=== PATIENT | male | born 1935 | race Caucasian/White ===

== ENCOUNTER 2019-04-10 22:48 | Inpatient (IN) ==
--- NOTE | 2019-04-10 23:38 | Emergency Department Note ---
Disposition Clinical Impression: Shortness of breath at rest Headache Qualifiers: Headache type: other headache syndrome Qualified Code(s): G44.89 - Other headache syndrome Disposition: Admitted As Inpatient Condition: Good Time of Disposition: 02:00 General Adult HPI - General Chief complaint: ED Shortness of Breath/Dyspnea Stated complaint: SoB/MUÑOZ/nausea Time Seen by Provider: 04/10/19 22:54 Source: patient, EMS Limitations: no limitations - History of Present Illness Pain Scale: 8 - Related Data Home Medications Medication Instructions Recorded Confirmed Apixaban [Eliquis] 5 mg PO BID 04/11/19 04/12/19 Atorvastatin [Lipitor] 40 mg PO QPM 04/11/19 04/12/19 Carvedilol 12.5 mg PO BID 04/11/19 04/12/19 Digoxin [Lanoxin] 0.125 mg PO DAILY 04/11/19 04/12/19 Furosemide [Lasix] 20 - 80 mg PO DAILY PRN 04/11/19 04/12/19 Glimepiride [Amaryl] 4 mg PO QAM 04/11/19 04/12/19 Metformin HCl [Fortamet] 500 mg PO BID 04/11/19 04/12/19 Omeprazole [PriLOSEC] 20 mg PO DAILY 04/11/19 04/12/19 Cholecalciferol (Vitamin D3) 1,000 units PO QAM 04/12/19 04/12/19 [Vitamin D3] Previous Rx's Medication Instructions Recorded Sodium Chloride [Sodium Chloride 1 gm PO DAILY #10 tablet 04/16/19 Tab] Tamsulosin [Flomax] 0.4 mg PO DAILY #30 capsule 04/16/19 Allergies Allergy/AdvReac Type Severity Reaction Status Date / Time No Known Allergies Allergy Verified 04/12/19 10:12 Past Medical History - Past Medical History Medical history: Reports: arthritis, atrial fibrillation, CHF, coronary artery disease, diabetes, GERD, hyperlipidemia, hypertension Surgical history: Reports: angioplasty/stent Psychiatric history: Reports: depression - Social History Smoking Status: Former smoker Smokeless Tobacco Status: No Alcohol use: Reports: none Drug use: Reports: none Physical Exam - General Limitations: no limitations General appearance: alert, in no apparent distress Course Vital Signs Temperature 98 F 04/10/19 22:55 Pulse Rate 66 04/10/19 22:55 Respiratory Rate 16 04/10/19 22:55 Blood Pressure 178/95 04/10/19 22:55 O2 Sat by Pulse Oximetry 98 04/10/19 22:55 Temperature 98.4 F 04/16/19 15:25 Pulse Rate 82 04/16/19 15:25 Respiratory Rate 12 04/16/19 15:25 Blood Pressure 151/79 04/16/19 15:25 O2 Sat by Pulse Oximetry 95 04/16/19 15:25 Oxygen Delivery Oxygen Delivery Room Air Medical Decision Making - Lab Data Result diagrams: 04/15/19 05:23 04/16/19 03:56 Lab Results 04/10/19 04/10/19 04/11/19 Range/Units 23:43 23:43 01:33 WBC 8.5 (4.3-11.1) K/mcL RBC 3.80 L (4.19-5.50) M/mcL Hgb 12.8 L (12.9-16.9) g/dL Hct 35.8 L (37.5-50.1) % MCV 94.2 D (83.0-100.0) fL MCH 33.7 H (28.0-33.3) pg MCHC 35.8 H (31.6-35.5) g/dL RDW 12.0 (11.5-14.5) % Plt Count 162 (140-400) K/mcL MPV 8.7 L (9.4-12.4) fL Immature Gran % 0.5 (0-4) % Seg Neutrophils % 73.3 % Lymphocytes % 13.9 % Monocytes % 11.5 % Eosinophils % 0.6 % Basophils % 0.2 % Neutrophils # 6.2 (1.6-8.9) K/mcL Lymphocytes # 1.2 (0.6-4.6) K/mcL Monocytes # 1.0 (0.0-1.3) K/mcL Eosinophils # 0.1 (0.0-0.6) K/mcL Basophils # 0.0 (0.0-0.2) K/mcL PT (9.4-12.1) Seconds INR Sodium 126 L (136-145) mEq/L Potassium 3.4 L (3.5-5.1) mEq/L Chloride 91 L (98-107) mEq/L Carbon Dioxide 25 (23-29) mEq/L BUN 9 (8-23) mg/dL Creatinine 0.56 L (0.70-1.30) mg/dL Est GFR ( Amer) > 60 (> 60) Est GFR (Non-Af Amer) > 60 (> 60) BUN/Creatinine Ratio 16 (6-26) Glucose 103 (70-105) mg/dL POC Glucose (70-99) mg/dL Calculated Osmolality 261 L (280-300) Calcium 9.3 (8.6-10.3) mg/dL Magnesium (1.6-2.6) mg/dL Total Bilirubin 1.6 H (0.3-1.0) mg/dL AST 17 (13-39) Units/L ALT 13 (7-52) Units/L Alkaline Phosphatase 97 (34-104) Units/L Troponin I < 0.03 (< 0.04) ng/mL Serum Total Protein 6.5 (6.4-8.9) g/dL Albumin 3.9 (3.5-5.7) g/dL Globulin 2.6 (2.4-3.5) g/dL Albumin/Globulin Ratio 1.5 (1.1-2.2) TSH (0.340-5.600) mcIU/mL Random Cortisol mcg/dl Urine Color Yellow (Yellow) Urine Clarity Clear (Clear) Urine pH 7.0 (5.0-8.0) pH Units Ur Specific [place] 1.020 (1.010-1.025) Urine Protein Negative (Neg-Trace) mg/dL Urine Glucose (UA) Normal (Normal) mg/dL Urine Ketones 15 H (Negative) mg/dL Urine Blood Negative (Negative) Urine Nitrite Negative (Negative) Urine Bilirubin Negative (Negative) Urine Urobilinogen Normal (Normal) mg/dL Ur Leukocyte Esterase Negative (Negative) Ur Culture Indicated? NO (NO) Urine Osmolality (300-1090) mOsm/kg Urine Sodium mEq/L Digoxin (0.8-2.0) ng/mL 04/11/19 04/11/19 04/11/19 Range/Units 04:30 04:30 07:33 WBC 8.2 (4.3-11.1) K/mcL RBC 3.64 L (4.19-5.50) M/mcL Hgb 12.5 L (12.9-16.9) g/dL Hct 35.0 L (37.5-50.1) % MCV 96.2 (83.0-100.0) fL MCH 34.3 H (28.0-33.3) pg MCHC 35.7 H (31.6-35.5) g/dL RDW 12.2 (11.5-14.5) % Plt Count 161 (140-400) K/mcL MPV 8.8 L (9.4-12.4) fL Immature Gran % 0.6 (0-4) % Seg Neutrophils % 75.1 % Lymphocytes % 12.1 % Monocytes % 11.6 % Eosinophils % 0.4 % Basophils % 0.2 % Neutrophils # 6.2 (1.6-8.9) K/mcL Lymphocytes # 1.0 (0.6-4.6) K/mcL Monocytes # 1.0 (0.0-1.3) K/mcL Eosinophils # 0.0 (0.0-0.6) K/mcL Basophils # 0.0 (0.0-0.2) K/mcL PT (9.4-12.1) Seconds INR Sodium (136-145) mEq/L Potassium (3.5-5.1) mEq/L Chloride (98-107) mEq/L Carbon Dioxide (23-29) mEq/L BUN (8-23) mg/dL Creatinine (0.70-1.30) mg/dL Est GFR ( Amer) (> 60) Est GFR (Non-Af Amer) (> 60) BUN/Creatinine Ratio (6-26) Glucose (70-105) mg/dL POC Glucose (70-99) mg/dL Calculated Osmolality (280-300) Calcium (8.6-10.3) mg/dL Magnesium (1.6-2.6) mg/dL Total Bilirubin (0.3-1.0) mg/dL AST (13-39) Units/L ALT (7-52) Units/L Alkaline Phosphatase (34-104) Units/L Troponin I (< 0.04) ng/mL Serum Total Protein (6.4-8.9) g/dL Albumin (3.5-5.7) g/dL Globulin (2.4-3.5) g/dL Albumin/Globulin Ratio (1.1-2.2) TSH (0.340-5.600) mcIU/mL Random Cortisol mcg/dl Urine Color (Yellow) Urine Clarity (Clear) Urine pH (5.0-8.0) pH Units Ur Specific [place] (1.010-1.025) Urine Protein (Neg-Trace) mg/dL Urine Glucose (UA) (Normal) mg/dL Urine Ketones (Negative) mg/dL Urine Blood (Negative) Urine Nitrite (Negative) Urine Bilirubin (Negative) Urine Urobilinogen (Normal) mg/dL Ur Leukocyte Esterase (Negative) Ur Culture Indicated? (NO) Urine Osmolality 484 (300-1090) mOsm/kg Urine Sodium 125.2 mEq/L Digoxin (0.8-2.0) ng/mL 04/11/19 04/11/19 04/11/19 Range/Units 07:33 09:57 12:51 WBC (4.3-11.1) K/mcL RBC (4.19-5.50) M/mcL Hgb (12.9-16.9) g/dL Hct (37.5-50.1) % MCV (83.0-100.0) fL MCH (28.0-33.3) pg MCHC (31.6-35.5) g/dL RDW (11.5-14.5) % Plt Count (140-400) K/mcL MPV (9.4-12.4) fL Immature Gran % (0-4) % Seg Neutrophils % % Lymphocytes % % Monocytes % % Eosinophils % % Basophils % % Neutrophils # (1.6-8.9) K/mcL Lymphocytes # (0.6-4.6) K/mcL Monocytes # (0.0-1.3) K/mcL Eosinophils # (0.0-0.6) K/mcL Basophils # (0.0-0.2) K/mcL PT (9.4-12.1) Seconds INR Sodium 124 L 125 L (136-145) mEq/L Potassium 3.6 (3.5-5.1) mEq/L Chloride 90 L (98-107) mEq/L Carbon Dioxide 27 (23-29) mEq/L BUN 9 (8-23) mg/dL Creatinine 0.56 L (0.70-1.30) mg/dL Est GFR ( Amer) > 60 (> 60) Est GFR (Non-Af Amer) > 60 (> 60) BUN/Creatinine Ratio 16 (6-26) Glucose 91 (70-105) mg/dL POC Glucose 100 H (70-99) mg/dL Calculated Osmolality 256 L (280-300) Calcium 9.2 (8.6-10.3) mg/dL Magnesium 1.7 (1.6-2.6) mg/dL Total Bilirubin (0.3-1.0) mg/dL AST (13-39) Units/L ALT (7-52) Units/L Alkaline Phosphatase (34-104) Units/L Troponin I (< 0.04) ng/mL Serum Total Protein (6.4-8.9) g/dL Albumin (3.5-5.7) g/dL Globulin (2.4-3.5) g/dL Albumin/Globulin Ratio (1.1-2.2) TSH 0.986 (0.340-5.600) mcIU/mL Random Cortisol 9.0 mcg/dl Urine Color (Yellow) Urine Clarity (Clear) Urine pH (5.0-8.0) pH Units Ur Specific [place] (1.010-1.025) Urine Protein (Neg-Trace) mg/dL Urine Glucose (UA) (Normal) mg/dL Urine Ketones (Negative) mg/dL Urine Blood (Negative) Urine Nitrite (Negative) Urine Bilirubin (Negative) Urine Urobilinogen (Normal) mg/dL Ur Leukocyte Esterase (Negative) Ur Culture Indicated? (NO) Urine Osmolality (300-1090) mOsm/kg Urine Sodium mEq/L Digoxin (0.8-2.0) ng/mL 04/11/19 04/11/19 04/12/19 Range/Units 15:56 21:10 03:02 WBC 8.1 (4.3-11.1) K/mcL RBC 3.62 L (4.19-5.50) M/mcL Hgb 12.1 L (12.9-16.9) g/dL Hct 34.5 L (37.5-50.1) % MCV 95.3 (83.0-100.0) fL MCH 33.4 H (28.0-33.3) pg MCHC 35.1 (31.6-35.5) g/dL RDW 12.3 (11.5-14.5) % Plt Count 166 (140-400) K/mcL MPV 8.7 L (9.4-12.4) fL Immature Gran % (0-4) % Seg Neutrophils % % Lymphocytes % % Monocytes % % Eosinophils % % Basophils % % Neutrophils # (1.6-8.9) K/mcL Lymphocytes # (0.6-4.6) K/mcL Monocytes # (0.0-1.3) K/mcL Eosinophils # (0.0-0.6) K/mcL Basophils # (0.0-0.2) K/mcL PT (9.4-12.1) Seconds INR Sodium (136-145) mEq/L Potassium (3.5-5.1) mEq/L Chloride (98-107) mEq/L Carbon Dioxide (23-29) mEq/L BUN (8-23) mg/dL Creatinine (0.70-1.30) mg/dL Est GFR ( Amer) (> 60) Est GFR (Non-Af Amer) (> 60) BUN/Creatinine Ratio (6-26) Glucose (70-105) mg/dL POC Glucose 117 H 116 H (70-99) mg/dL Calculated Osmolality (280-300) Calcium (8.6-10.3) mg/dL Magnesium (1.6-2.6) mg/dL Total Bilirubin (0.3-1.0) mg/dL AST (13-39) Units/L ALT (7-52) Units/L Alkaline Phosphatase (34-104) Units/L Troponin I (< 0.04) ng/mL Serum Total Protein (6.4-8.9) g/dL Albumin (3.5-5.7) g/dL Globulin (2.4-3.5) g/dL Albumin/Globulin Ratio (1.1-2.2) TSH (0.340-5.600) mcIU/mL Random Cortisol mcg/dl Urine Color (Yellow) Urine Clarity (Clear) Urine pH (5.0-8.0) pH Units Ur Specific [place] (1.010-1.025) Urine Protein (Neg-Trace) mg/dL Urine Glucose (UA) (Normal) mg/dL Urine Ketones (Negative) mg/dL Urine Blood (Negative) Urine Nitrite (Negative) Urine Bilirubin (Negative) Urine Urobilinogen (Normal) mg/dL Ur Leukocyte Esterase (Negative) Ur Culture Indicated? (NO) Urine Osmolality (300-1090) mOsm/kg Urine Sodium mEq/L Digoxin (0.8-2.0) ng/mL 04/12/19 04/12/19 04/12/19 Range/Units 03:02 03:02 07:09 WBC (4.3-11.1) K/mcL RBC (4.19-5.50) M/mcL Hgb (12.9-16.9) g/dL Hct (37.5-50.1) % MCV (83.0-100.0) fL MCH (28.0-33.3) pg MCHC (31.6-35.5) g/dL RDW (11.5-14.5) % Plt Count (140-400) K/mcL MPV (9.4-12.4) fL Immature Gran % (0-4) % Seg Neutrophils % % Lymphocytes % % Monocytes % % Eosinophils % % Basophils % % Neutrophils # (1.6-8.9) K/mcL Lymphocytes # (0.6-4.6) K/mcL Monocytes # (0.0-1.3) K/mcL Eosinophils # (0.0-0.6) K/mcL Basophils # (0.0-0.2) K/mcL PT (9.4-12.1) Seconds INR Sodium 125 L (136-145) mEq/L Potassium 4.2 (3.5-5.1) mEq/L Chloride 92 L (98-107) mEq/L Carbon Dioxide 27 (23-29) mEq/L BUN 8 (8-23) mg/dL Creatinine 0.68 L (0.70-1.30) mg/dL Est GFR ( Amer) > 60 (> 60) Est GFR (Non-Af Amer) > 60 (> 60) BUN/Creatinine Ratio 12 (6-26) Glucose 111 H (70-105) mg/dL POC Glucose 116 H (70-99) mg/dL Calculated Osmolality 259 L (280-300) Calcium 9.4 (8.6-10.3) mg/dL Magnesium 1.9 (1.6-2.6) mg/dL Total Bilirubin (0.3-1.0) mg/dL AST (13-39) Units/L ALT (7-52) Units/L Alkaline Phosphatase (34-104) Units/L Troponin I (< 0.04) ng/mL Serum Total Protein (6.4-8.9) g/dL Albumin (3.5-5.7) g/dL Globulin (2.4-3.5) g/dL Albumin/Globulin Ratio (1.1-2.2) TSH (0.340-5.600) mcIU/mL Random Cortisol mcg/dl Urine Color (Yellow) Urine Clarity (Clear) Urine pH (5.0-8.0) pH Units Ur Specific [place] (1.010-1.025) Urine Protein (Neg-Trace) mg/dL Urine Glucose (UA) (Normal) mg/dL Urine Ketones (Negative) mg/dL Urine Blood (Negative) Urine Nitrite (Negative) Urine Bilirubin (Negative) Urine Urobilinogen (Normal) mg/dL Ur Leukocyte Esterase (Negative) Ur Culture Indicated? (NO) Urine Osmolality (300-1090) mOsm/kg Urine Sodium mEq/L Digoxin 0.7 L (0.8-2.0) ng/mL 04/12/19 04/12/19 04/12/19 Range/Units 11:00 16:12 20:32 WBC (4.3-11.1) K/mcL RBC (4.19-5.50) M/mcL Hgb (12.9-16.9) g/dL Hct (37.5-50.1) % MCV (83.0-100.0) fL MCH (28.0-33.3) pg MCHC (31.6-35.5) g/dL RDW (11.5-14.5) % Plt Count (140-400) K/mcL MPV (9.4-12.4) fL Immature Gran % (0-4) % Seg Neutrophils % % Lymphocytes % % Monocytes % % Eosinophils % % Basophils % % Neutrophils # (1.6-8.9) K/mcL Lymphocytes # (0.6-4.6) K/mcL Monocytes # (0.0-1.3) K/mcL Eosinophils # (0.0-0.6) K/mcL Basophils # (0.0-0.2) K/mcL PT (9.4-12.1) Seconds INR Sodium (136-145) mEq/L Potassium (3.5-5.1) mEq/L Chloride (98-107) mEq/L Carbon Dioxide (23-29) mEq/L BUN (8-23) mg/dL Creatinine (0.70-1.30) mg/dL Est GFR ( Amer) (> 60) Est GFR (Non-Af Amer) (> 60) BUN/Creatinine Ratio (6-26) Glucose (70-105) mg/dL POC Glucose 131 H 127 H 137 H (70-99) mg/dL Calculated Osmolality (280-300) Calcium (8.6-10.3) mg/dL Magnesium (1.6-2.6) mg/dL Total Bilirubin (0.3-1.0) mg/dL AST (13-39) Units/L ALT (7-52) Units/L Alkaline Phosphatase (34-104) Units/L Troponin I (< 0.04) ng/mL Serum Total Protein (6.4-8.9) g/dL Albumin (3.5-5.7) g/dL Globulin (2.4-3.5) g/dL Albumin/Globulin Ratio (1.1-2.2) TSH (0.340-5.600) mcIU/mL Random Cortisol mcg/dl Urine Color (Yellow) Urine Clarity (Clear) Urine pH (5.0-8.0) pH Units Ur Specific [place] (1.010-1.025) Urine Protein (Neg-Trace) mg/dL Urine Glucose (UA) (Normal) mg/dL Urine Ketones (Negative) mg/dL Urine Blood (Negative) Urine Nitrite (Negative) Urine Bilirubin (Negative) Urine Urobilinogen (Normal) mg/dL Ur Leukocyte Esterase (Negative) Ur Culture Indicated? (NO) Urine Osmolality (300-1090) mOsm/kg Urine Sodium mEq/L Digoxin (0.8-2.0) ng/mL 04/13/19 04/13/19 04/13/19 Range/Units 04:55 04:55 04:55 WBC 8.6 (4.3-11.1) K/mcL RBC 3.55 L (4.19-5.50) M/mcL Hgb 12.1 L (12.9-16.9) g/dL Hct 35.9 L (37.5-50.1) % MCV 101.1 H (83.0-100.0) fL MCH 34.1 H (28.0-33.3) pg MCHC 33.7 (31.6-35.5) g/dL RDW 12.4 (11.5-14.5) % Plt Count 147 (140-400) K/mcL MPV 8.7 L (9.4-12.4) fL Immature Gran % (0-4) % Seg Neutrophils % % Lymphocytes % % Monocytes % % Eosinophils % % Basophils % % Neutrophils # (1.6-8.9) K/mcL Lymphocytes # (0.6-4.6) K/mcL Monocytes # (0.0-1.3) K/mcL Eosinophils # (0.0-0.6) K/mcL Basophils # (0.0-0.2) K/mcL PT 14.8 H (9.4-12.1) Seconds INR 1.3 Sodium 127 L (136-145) mEq/L Potassium 4.2 (3.5-5.1) mEq/L Chloride 92 L (98-107) mEq/L Carbon Dioxide 27 (23-29) mEq/L BUN 9 (8-23) mg/dL Creatinine 0.68 L (0.70-1.30) mg/dL Est GFR ( Amer) > 60 (> 60) Est GFR (Non-Af Amer) > 60 (> 60) BUN/Creatinine Ratio 13 (6-26) Glucose 126 H (70-105) mg/dL POC Glucose (70-99) mg/dL Calculated Osmolality 264 L (280-300) Calcium 8.9 (8.6-10.3) mg/dL Magnesium 1.9 (1.6-2.6) mg/dL Total Bilirubin (0.3-1.0) mg/dL AST (13-39) Units/L ALT (7-52) Units/L Alkaline Phosphatase (34-104) Units/L Troponin I (< 0.04) ng/mL Serum Total Protein (6.4-8.9) g/dL Albumin (3.5-5.7) g/dL Globulin (2.4-3.5) g/dL Albumin/Globulin Ratio (1.1-2.2) TSH (0.340-5.600) mcIU/mL Random Cortisol mcg/dl Urine Color (Yellow) Urine Clarity (Clear) Urine pH (5.0-8.0) pH Units Ur Specific [place] (1.010-1.025) Urine Protein (Neg-Trace) mg/dL Urine Glucose (UA) (Normal) mg/dL Urine Ketones (Negative) mg/dL Urine Blood (Negative) Urine Nitrite (Negative) Urine Bilirubin (Negative) Urine Urobilinogen (Normal) mg/dL Ur Leukocyte Esterase (Negative) Ur Culture Indicated? (NO) Urine Osmolality (300-1090) mOsm/kg Urine Sodium mEq/L Digoxin (0.8-2.0) ng/mL 04/13/19 04/13/19 Range/Units 07:14 11:41 WBC (4.3-11.1) K/mcL RBC (4.19-5.50) M/mcL Hgb (12.9-16.9) g/dL Hct (37.5-50.1) % MCV (83.0-100.0) fL MCH (28.0-33.3) pg MCHC (31.6-35.5) g/dL RDW (11.5-14.5) % Plt Count (140-400) K/mcL MPV (9.4-12.4) fL Immature Gran % (0-4) % Seg Neutrophils % % Lymphocytes % % Monocytes % % Eosinophils % % Basophils % % Neutrophils # (1.6-8.9) K/mcL Lymphocytes # (0.6-4.6) K/mcL Monocytes # (0.0-1.3) K/mcL Eosinophils # (0.0-0.6) K/mcL Basophils # (0.0-0.2) K/mcL PT (9.4-12.1) Seconds INR Sodium (136-145) mEq/L Potassium (3.5-5.1) mEq/L Chloride (98-107) mEq/L Carbon Dioxide (23-29) mEq/L BUN (8-23) mg/dL Creatinine (0.70-1.30) mg/dL Est GFR ( Amer) (> 60) Est GFR (Non-Af Amer) (> 60) BUN/Creatinine Ratio (6-26) Glucose (70-105) mg/dL POC Glucose 117 H 115 H (70-99) mg/dL Calculated Osmolality (280-300) Calcium (8.6-10.3) mg/dL Magnesium (1.6-2.6) mg/dL Total Bilirubin (0.3-1.0) mg/dL AST (13-39) Units/L ALT (7-52) Units/L Alkaline Phosphatase (34-104) Units/L Troponin I (< 0.04) ng/mL Serum Total Protein (6.4-8.9) g/dL Albumin (3.5-5.7) g/dL Globulin (2.4-3.5) g/dL Albumin/Globulin Ratio (1.1-2.2) TSH (0.340-5.600) mcIU/mL Random Cortisol mcg/dl Urine Color (Yellow) Urine Clarity (Clear) Urine pH (5.0-8.0) pH Units Ur Specific [place] (1.010-1.025) Urine Protein (Neg-Trace) mg/dL Urine Glucose (UA) (Normal) mg/dL Urine Ketones (Negative) mg/dL Urine Blood (Negative) Urine Nitrite (Negative) Urine Bilirubin (Negative) Urine Urobilinogen (Normal) mg/dL Ur Leukocyte Esterase (Negative) Ur Culture Indicated? (NO) Urine Osmolality (300-1090) mOsm/kg Urine Sodium mEq/L Digoxin (0.8-2.0) ng/mL Attestation Statement - Attestation Attestation: I examined this patient and my medical decision-making was reviewed with the Resident Physician. I agree with the documented findings, disposition and treatment plan as described except to the extent set forth below. I was present for the residency EKG interpretation. 3 days of multiple complaints, onset corresponded with when he started Cymbalta but have not gotten better since Cymbalta was discontinued. Gradual onset of headache that has been present for 3 days and is at its maximum intensity now. Some confusion that started when he started Cymbalta 3 days ago and is also not improved. He complained of some dysuria as well. Complains of shortness of breath without chest pain, diaphoresis. Has had some nausea. Has an extensive cardiac history. Will require cardiac evaluation. She is no reason to suspect subarachnoid hemorrhage given the gradual onset of his symptoms in 3 days until he reached maximum intensity, but given his headache that is different from his prior headaches and is associated with some mental status changes, CT is warranted. I cannot identify lateralizing deficits on my exam. Overall, his exam is unremarkable other than being a little bit slow with mentation, which the family says is off his baseline. Evaluation and management discussed in detail with Dr. Han. We will reassess.
[2019-04-10] MEDS ORDERED: Prochlorperazine 10 MG/2 ML VIAL IVP STA (23:40)
[2019-04-10 23:56] LABS: Basophils % 0.2 %; Eosinophils # 0.1 K/mcL (0.0-0.6); Eosinophils % 0.6 %; Hematocrit 35.8 % (37.5-50.1); Hemoglobin 12.8 g/dL (12.9-16.9); Immature Granulocytes % 0.5 % (0-4); Lymphocytes # 1.2 K/mcL (0.6-4.6); Lymphocytes % 13.9 %; Mean Corpuscular HGB Conc 35.8 g/dL (31.6-35.5); Mean Corpuscular Hemoglobin 33.7 pg (28.0-33.3); Mean Platelet Volume 8.7 fL (9.4-12.4); Monocytes % 11.5 %; Neutrophils # 6.2 K/mcL (1.6-8.9); Platelet Count 162 K/mcL (140-400); Segmented Neutrophils % 73.3 %; White Blood Count 8.5 K/mcL (4.3-11.1)
[2019-04-11 00:17] LABS: Alanine Aminotransferase 13 Units/L (7-52); Albumin 3.9 g/dL (3.5-5.7); Albumin/Globulin Ratio 1.5 (1.1-2.2); Alkaline Phosphatase 97 Units/L (34-104); Aspartate Amino Transferase 17 Units/L (13-39); BUN/Creatinine Ratio 16 (6-26); Bilirubin,Total 1.6 mg/dL (0.3-1.0); Blood Urea Nitrogen 9 mg/dL (8-23); Calcium 9.3 mg/dL (8.6-10.3); Carbon Dioxide 25 mEq/L (23-29); Chloride 91 mEq/L (98-107); Globulin 2.6 g/dL (2.4-3.5); Glucose 103 mg/dL (70-105); Osmolality,Calculated 261 (280-300); Potassium 3.4 mEq/L (3.5-5.1); Sodium 126 mEq/L (136-145); Total Protein 6.5 g/dL (6.4-8.9); Troponin I < 0.03 ng/mL (< 0.04); eGFR For African Americans > 60 (> 60); eGFR For Non-African Americans > 60 (> 60)
[2019-04-11 00:24] LABS: Mean Corpuscular Volume 94.2 fL (83.0-100.0)
--- NOTE | 2019-04-11 01:38 | Internal Med History&Physical ---
<Josh Palm - Last Filed: 04/11/19 04:01> Date of Encounter: 04/11/19 Time of Encounter: 03:18 Internal Medicine - H&P: HPI Chief complaint: SOB, MUÑOZ Admitted From: Emergency Dept Plans for Post Hospital Care: Home History of present illness: Mr. Gillespie is a 83 year old male with a PMhx of AFib on eliquis, HTN, HLD, CAD, DM who presents to ED with a complaint of MUÑOZ, nausea, SOB, weakness x 3 days. Patient states that he restart a new medication of Cymbalta 3 days ago when symptoms onset. Family who is at bedside, states that patient has had poor oral intake with both fluids and solids. Family states that this is due to both nausea and decreased appetite. They have noticed him complaining of diffuse weakness in all extremities with no focal complaints. He has never had anything like this before. He has not noticed any vomiting, fevers, chills, complaints of respiratory illness, cough, numbness outside at baseline, tingling, joint pains. He has no sick contacts or recent travel. He has had 1 loose bowel movement with what he described as coffee ground in appearance. He has also been complaining of some dysuria and hesitancy but has not noticed any frequency, changes and odors or color. Patient also admits to a frontal headache in this time which has been constant and worse with exertion. He has tried Tylenol at home and Compazine in the emergency room with minimal relief of symptoms. He is not having any chest pains at this time. In the ED, vitals were only significant for BP 178/95. Labs showed improved from baseline anemia, Na of 126, K of 3.4, Cl 91. Kidney function wnl. Osm was calculated at 261 and Tbili of 1.6. Troponin <0.03. UA showed ketones with no evidence of infection. EKG showed AFib with no ST changes or t-wave inversions. CXR showed left basilar atelectasis and pleural thickening vs effusion. Cardiomegaly and calcified aorta also noted. CT head obtained and showed no acute process. He was given compazine with mild improvement of symptoms. At time of my interview, patient states that he is feeling a little bit better in his shortness of breath and headache. He is continuing to feel weak and is tired at this time. Past medical history: As above Surgical history: CABG 3, nasal reconstruction Social history: Former heavy smoker, quit in 1996, former moderate alcohol use, also quit 1996. Denies drug use. Past Med Surg Social Fam HX - Past Medical History Medical history: arthritis, atrial fibrillation, CHF, coronary artery disease, diabetes, GERD, hyperlipidemia, hypertension Additional medical history: hemmorhoids, anemia, Psychiatric history: depression - Past Surgical History Surgical History: angioplasty/stent Additional surgical history: triple bypass surgery - Social History Smoking Status: Former smoker Smokeless Tobacco Status: No Alcohol use: none Drug use: none - Family History Mother Living Status: Age at : 60 Cause of : heart attack Hx Family Cardiac Disorders: Yes Hx Family Respiratory Disorders: No Hx Family Cancer: Yes Hx Family GI Disorders: No Hx Family Genitourinary Disorders: No Hx Family Autoimmune Disorders: No Father Adopted: No Age at : 89 Cause of : pt stated he in sleep Hx Family Neurologic Disorders: Yes (CVA) Internal Medicine - H&P: Meds Unable To Obtain [Unable to Obtain] 04/11/19 [History] Allergy/AdvReac Type Severity Reaction Status Date / Time No Known Allergies Allergy Verified 10/14/18 14:05 All Systems PM: A 10-system review of systems was performed and is negative for pertinent findings except as documented above in the HPI. Review of systems: - Constitutional: Admits to fatigue, weakness, chills. Denies fevers, weight loss - Head/Neck: Admits to MUÑOZ. Denies neck stiffness - EENT: Denies vision changes/blurriness, tinnitus, auditory changes, rhinorrhea, congestion, sore throat - CVS: Denies chest pain, palpitations, orthopnea, edema, PND, - Pulm: Admits to SHIN, SOb. Denies cough, sputum, hematemesis, wheezing - GI: Admits to nausea. Denies abdominal pain, vomiting, diarrhea, constipation, melena - : Admits to hesitancy, dysuria. Denies increased frequency, urgency, hematuria, - MSK: Denies joint pain, limited ROM - Skin: Denies rashes, ulcers, color changes, - Neuro: Denies paresthesias, focal deficits, ataxia, - Constitutional Vitals: Temp Pulse Resp BP Pulse Ox 98 F 66 16 178/95 98 07/09/19 22:55 04/10/19 22:55 04/10/19 22:55 04/10/19 22:55 04/10/19 22:55 Exam: Gen.: Vitals noted. No acute distress. AAOx3, resting comfortably in bed. HEENT: PERRL/EOMI, oropharynx clear, Normocephalic, atraumatic, dry mucous mem branes Cardiac: Irregularly irregular, rate controlled, no murmur, +S1/S2, No BLE edema Pulmonary: Diminished left base, otherwise CTA bilaterally, no wheezes, rales or rhonchi, equal chest expansion, unlabored breathing Abdomen: soft, nontender, BS noted, no guarding, no palpable HSM Skin: warm and dry, no visible lesions. MSK: ROM intact, no joint swelling noted, gait no assessed while in bed. Non tender calf or clubbing muscle strength equal in all extremities. Neuro: A&Ox3, moves all extremities, no focal deficits, sensation intact, cranial nerves grossly intact Psych: Appropriate mood and behavior, AOx3 Internal Med - H&P Results - Labs CBC & Chem 7: 04/10/19 23:43 04/10/19 23:43 Labs: Short CBC 04/10/19 Range/Units 23:43 WBC 8.5 (4.3-11.1) K/mcL Hgb 12.8 L (12.9-16.9) g/dL Hct 35.8 L (37.5-50.1) % Plt Count 162 (140-400) K/mcL Neutrophils # 6.2 (1.6-8.9) K/mcL BMP 04/10/19 23:43 Sodium 126 L Potassium 3.4 L Chloride 91 L Carbon Dioxide 25 BUN 9 Creatinine 0.56 L Glucose 103 Calcium 9.3 Cardiac Enzymes 04/10/19 Range/Units 23:43 Troponin I < 0.03 (< 0.04) ng/mL Liver Function 04/10/19 Range/Units 23:43 Total Bilirubin 1.6 H (0.3-1.0) mg/dL AST 17 (13-39) Units/L ALT 13 (7-52) Units/L Alkaline Phosphatase 97 (34-104) Units/L Albumin 3.9 (3.5-5.7) g/dL - Impressions ITS Impressions Chest X-Ray 04/10/19 23:11 IMPRESSION: 1. Left basilar scarring versus atelectasis. 2. Left pleural thickening versus pleural effusion. 3. Calcific atherosclerosis aorta. 4. Cardiomegaly. D/ / Navdeep Miller / Navdeep Miller Interpreting Provider: Navdeep Miller Head CT 04/11/19 00:00 IMPRESSION: No acute intracranial abnormality. D/ / Orlando Cat MD / Orlando Cat MD Interpreting Provider: Orlando Cat MD - Assessment and Plan (1) Weakness Current Visit: Yes Status: Acute Assessment and plan: - Suspect weakness secondary to dehydration secondary to poor oral intake - Patient presents with nausea and decreased appetite following new medication - Patient has reportedly had poor oral intake the last 3 days despite stopping Cymbalta - Clinically hypovolemic on exam - Laboratory results including hyponatremia, hypokalemia -- Low serum osmolality of 261 may reflect poor solute intake -- Low creatinine at 0.56 and BMI of 16 also reflect poor oral intake - Chest x-ray shows left lower pleural effusion versus scarring - CT head negative for acute process - Status post 1 L of normal saline in the emergency department Plan - We will continue to hydrate with maintenance fluids at 100 per hour - Consider PT/OT if weakness does not improve (2) Dehydration Current Visit: Yes Status: Acute Assessment and plan: As above, hydrating (3) Diabetes Current Visit: Yes Status: Chronic Assessment and plan: Patient reports a history of well-controlled diabetes Complications of cardiovascular disease Family reports he has been checking his blood sugars and normally runs less than 100 with no episodes of hypoglycemia Blood sugar 103 on admission We will start low-dose sliding scale insulin with ada diet Qualifiers: Diabetes mellitus type: type 2 Diabetes mellitus assisted insulin use: unspecified assisted insulin use status Diabetes mellitus complication status: with other specified complication Qualified Code(s): E11.69 - Type 2 diabetes mellitus with other specified complication (4) Hyponatremia Current Visit: Yes Status: Acute Assessment and plan: - Sodium of 126 on presentation - Suspect that this is hypovolemic hyponatremia secondary to poor oral intake secondary to medication side effect - Patient is clinically dry on exam today - Alternatively, patient may have component of SIADH secondary to medication versus unknown malignancy - Serum osmoles of 260s - Chest x-ray shows left pleural effusion versus scarring, no evidence of mass - CT head within normal limits Plan - Obtain urine studies - Hydration with normal saline as above - We will obtain CT chest to rule out any malignancy given history of heavy tobacco use - We will also obtain TSH, cortisol - Echocardiogram given cardiac history. - Every 6 hours sodium checks. As we have no baseline to compare to, we will treat this as chronic and have goal of 6-8/24 hrs (5) Hypokalemia Current Visit: Yes Status: Acute Assessment and plan: - Also suspect secondary to poor oral intake as above - Potassium of 3.4, will replenish and recheck - Magnesium level ordered and pending (6) Medication side effect Current Visit: Yes Status: Acute Assessment and plan: As above Suspect that Cymbalta is causing patient's nausea and decreased appetite which started in the events leading to above Cymbalta has been discontinued (7) CAD (coronary artery disease) Current Visit: Yes Status: Chronic Assessment and plan: - Patient and family both report history of coronary artery disease with bypass and 2 stents placed around 1994 - Patient is having no complaints of chest pain at this time - Troponin negative in emergency department - EKG shows atrial fibrillation with no signs of ischemia - Continue monitor and restart home meds once confirmed by pharmacy Qualifiers: Coronary Disease-Associated Artery/Lesion type: bypass graft [place] vs. transplanted heart: unspecified whether [place] or transplanted heart Associated angina: without angina Qualified Code(s): I25.810 - Atherosclerosis of coronary artery bypass graft(s) without angina pectoris (8) Atrial fibrillation Current Visit: Yes Status: Chronic Assessment and plan: - Per patient history - Rate controlled at this time - Confirmed by EKG - Anticoagulated at home on eliquis - Will restart home meds once reconciled. Qualifiers: Atrial fibrillation type: unspecified Qualified Code(s): I48.91 - Unspecified atrial fibrillation (9) DVT prophylaxis Current Visit: Yes Status: Acute Assessment and plan: Continue eliquis once medications are confirmed - Time Spent With Patient Total time spent is greater than 50% in coordination of care (as documented) at patient's floor/unit and/or counseling patient: <Kaushik Munguia - Last Filed: 04/11/19 06:04> Date of Encounter: 04/11/19 Time of Encounter: 04:15 - Constitutional Constitutional: fatigue, weakness, no chills, no fever(s), no night sweats - EENT Eyes: no blurry vision, no change in vision Ears: no ear pain, no tinnitus Nose, mouth and throat: no nasal congestion, no sinus pressure, no sore throat - Cardiovascular Cardiovascular ROS IM: no chest pain, no dyspnea, no dyspnea on exertion - Respiratory Respiratory: no cough, no chest congestion, no excessive phlegm production - Gastrointestinal Gastrointestinal: diarrhea, early satiety, nausea, vomiting, no abdominal pain, no coffee ground emesis, no hematemesis, no hematochezia, no melena - Genitourinary Genitourinary ROS male: no dysuria, no flank pain, no hematuria - Musculoskeletal Musculoskeletal ROS IM: muscle cramps, muscle weakness, no arthralgias, no back pain - Integumentary Integumentary IM: no rash, no jaundice - Neurological Neurological ROS: dizziness, headache(s), no disequilibrium, no focal weakness, no frequent falls, no tingling, no vertigo - Psychiatric Psychiatric: no anxiety, no depression - Endocrine Endocrine IM: no cold intolerance, no heat intolerance, no polydipsia, no polyphagia, no polyuria - Hematologic/Lymphatic Hematologic/Lymphatic: easy bruising, no lymphadenopathy - Allergic/Immunologic Allergic/Immunologic: GI upset with certain foods, no wheezing - Constitutional Vitals: Temp Pulse Resp BP Pulse Ox 98.8 F 77 93 163/85 98 04/11/19 03:41 04/11/19 03:41 04/11/19 03:41 04/11/19 03:41 04/10/19 22:55 General appearance: Present: cooperative, mild distress, A&O X 3, pleasant, answers questions appropriately Exam: appears moderately dehydrated - Head Head exam: Present: atraumatic, normal inspection - Eye Eye exam: Present: EOMI, PERRL. Absent: scleral icterus Pupils: Present: normal accommodation - ENT ENT exam: Present: mucous membranes dry, normal exam, normal oropharynx - Neck Neck exam general surgery: Present: full ROM, supple, trachea midline. Absent: tenderness, nuchal rigidity, thyromegaly - Respiratory Respiratory exam: Present: CTAB. Absent: chest wall tenderness, rales, rhonchi, wheezes - Cardiovascular Cardiovascular exam: Present: distant heart sounds, +S1, +S2. Absent: diastolic murmur, systolic murmur - GI/Abdominal GI/Abdominal exam: Present: normal bowel sounds, soft. Absent: guarding, hepatomegaly, rebound, splenomegaly, tenderness - Extremities Exam Extremities exam: Present: full ROM, normal capillary refill, warm, radial pulses palpable and symmetrical. Absent: calf tenderness, joint swelling, pedal edema, tenderness - Back Exam Back exam: Absent: CVA tenderness (L), CVA tenderness (R) - Neurological Exam Neurological exam: Present: alert, CN II-XII intact, oriented X3, no focal deficits, strengths equal and symetr throughout - Psychiatric Psychiatric exam: Present: normal affect, normal mood - Skin Skin exam: Present: dry, intact, warm Internal Med - H&P Results - Labs CBC & Chem 7: 04/10/19 23:43 04/10/19 23:43 Labs: Short CBC 04/10/19 Range/Units 23:43 WBC 8.5 (4.3-11.1) K/mcL Hgb 12.8 L (12.9-16.9) g/dL Hct 35.8 L (37.5-50.1) % Plt Count 162 (140-400) K/mcL Neutrophils # 6.2 (1.6-8.9) K/mcL BMP 04/10/19 23:43 Sodium 126 L Potassium 3.4 L Chloride 91 L Carbon Dioxide 25 BUN 9 Creatinine 0.56 L Glucose 103 Calcium 9.3 Cardiac Enzymes 04/10/19 Range/Units 23:43 Troponin I < 0.03 (< 0.04) ng/mL Liver Function 04/10/19 Range/Units 23:43 Total Bilirubin 1.6 H (0.3-1.0) mg/dL AST 17 (13-39) Units/L ALT 13 (7-52) Units/L Alkaline Phosphatase 97 (34-104) Units/L Albumin 3.9 (3.5-5.7) g/dL Urine 04/11/19 Range/Units 01:33 Urine Color Yellow (Yellow) Urine Clarity Clear (Clear) Urine pH 7.0 (5.0-8.0) pH Units Ur Specific [place] 1.020 (1.010-1.025) Urine Protein Negative (Neg-Trace) mg/dL Urine Glucose (UA) Normal (Normal) mg/dL - Impressions ITS Impressions Chest X-Ray 04/10/19 23:11 IMPRESSION: 1. Left basilar scarring versus atelectasis. 2. Left pleural thickening versus pleural effusion. 3. Calcific atherosclerosis aorta. 4. Cardiomegaly. D/ / Navdeep Miller / Navdeep Miller Interpreting Provider: Navdeep Miller Head CT 04/11/19 00:00 IMPRESSION: No acute intracranial abnormality. D/ / Orlando Cat MD / Orlando Cat MD Interpreting Provider: Orlando Cat MD - Diagnostic Studies CT scan - head Status: image reviewed by me (negative) - Time Spent With Patient Total time spent is greater than 50% in coordination of care (as documented) at patient's floor/unit and/or counseling patient: - Attending Attestation I discussed the patient [place], past medical history, review of systems, lab data, imaging data, and exam findings with Dr. Palm. I then saw and examined patient independently. He and his family do not have his medication list. However, he is able to tell us that he recently started Cymbalta and that he developed his profound nausea and vomiting due to the medication and side effec ts. Upon further questioning, he also admits to me that he does take furosemide diuretic. This likely contributed his hyponatremia as well. He does look clinically dehydrated. He also complains of worsening headache over last several days. Given he has headache, protracted nausea and vomiting, and hyponatremiia in the setting of anticoagulation, I recommend proceeding with serial neuro checks and repeating CT imaging of the head to rule out any intracranial bleed. He has negative initial CT. He denies any head trauma, falling, or injuring his head. Nonetheless, I feel that the above measures are warranted. As such, we will keep him on IV fluid hydration given his dehydrated state. We will monitor his chemistries closely. We will stop his Cymbalta and hold his Lasix for now. Other than my comments above and documented exam findings, I agree with Dr. Palm's assessment and plan.
[2019-04-11 01:43] LABS: Bilirubin,Urine Negative (Negative); Blood,Urine Negative (Negative); Clarity,Urine Clear (Clear); Color,Urine Yellow (Yellow); Glucose,Urine (UA) Normal (Normal); Ketones,Urine 15 mg/dL (Negative); Leukocyte Esterase,Urine Negative (Negative); Nitrite,Urine Negative (Negative); Protein,Urine Negative (Neg-Trace); Urobilinogen,Urine Normal (Normal)
[2019-04-11] MEDS ORDERED: Naloxone 0.4 MG/ML INJ IVP PRN (03:51)
[2019-04-11] MEDS ORDERED: Ondansetron 4 MG/2 ML VIAL IVP PRN (03:51)
[2019-04-11] MEDS ORDERED: 0.9 % Sodium Chloride 1,000 ML IVC SCH (04:00)
[2019-04-11] MEDS ORDERED: D5% in Water 1,000 ML IVC PRN (04:26)
[2019-04-11] MEDS ORDERED: Dextrose Gel 15 GM/37.5 ML TUBE PO PRN ×2 (04:26)
[2019-04-11] MEDS ORDERED: *HR* Dextrose 50 % in Water (Syg) 50 ML SYRINGE IVP PRN (04:26)
[2019-04-11 08:03] LABS: Basophils % 0.2 %; Eosinophils % 0.4 %; Hemoglobin 12.5 g/dL (12.9-16.9); Immature Granulocytes % 0.6 % (0-4); Lymphocytes % 12.1 %; Mean Corpuscular HGB Conc 35.7 g/dL (31.6-35.5); Mean Corpuscular Hemoglobin 34.3 pg (28.0-33.3); Mean Corpuscular Volume 96.2 fL (83.0-100.0); Mean Platelet Volume 8.8 fL (9.4-12.4); Monocytes % 11.6 %; Neutrophils # 6.2 K/mcL (1.6-8.9); Platelet Count 161 K/mcL (140-400); Red Blood Count 3.64 M/mcL (4.19-5.50); Red Cell Distribution Width 12.2 % (11.5-14.5); Segmented Neutrophils % 75.1 %; White Blood Count 8.2 K/mcL (4.3-11.1)
[2019-04-11] MEDS: Insulin LISPRO 300 UNITS/3 ML VIAL SQ SCH ×4 (08:03→21:23)
[2019-04-11 08:20] LABS: BUN/Creatinine Ratio 16 (6-26); Blood Urea Nitrogen 9 mg/dL (8-23); Carbon Dioxide 27 mEq/L (23-29); Chloride 90 mEq/L (98-107); Potassium 3.6 mEq/L (3.5-5.1); Sodium 124 mEq/L (136-145); eGFR For African Americans > 60 (> 60)
[2019-04-11 08:21] LABS: Calcium 9.2 mg/dL (8.6-10.3); Glucose 91 mg/dL (70-105); Magnesium 1.7 mg/dL (1.6-2.6); Osmolality,Calculated 256 (280-300); eGFR For Non-African Americans > 60 (> 60)
[2019-04-11 08:40] LABS: Thyroid Stimulating Hormone 0.986 mcIU/mL (0.340-5.600)
--- NOTE | 2019-04-11 12:05 | Event Note ---
Date of Encounter: 04/11/19 Time of Encounter: 08:30 H&P reviewed. Patient with history of atrial fibrillation, CAD, diabetes, is admitted for generalized weakness that is chronic but also acutely worsening for the last few days. Was started on Cymbalta for 3 days prior to the onset of symptoms. He was also on lasix 60mg QD which he stopped taking 2 days prior to the presentation due to concern of "dehydration". Incidentally found to hyponatremia that did not improve with IVF. 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 Will d/c IVF, fluid restrict 1.5L/day, and add salt tab BID. PT/OT. Discharge soon
[2019-04-11] MEDS ORDERED: Diltiazem CD (24hr) 120 MG CAPSULE PO SCH (13:00)
[2019-04-11] MEDS ORDERED: Apixaban 5 MG TABLET PO SCH (21:00)
[2019-04-11] MEDS: *HR* OxyCODONE Immed Rel 5 MG TABLET PO PRN (21:22)
[2019-04-12 04:08] LABS: Hematocrit 34.5 % (37.5-50.1); Hemoglobin 12.1 g/dL (12.9-16.9); Mean Corpuscular HGB Conc 35.1 g/dL (31.6-35.5); Mean Corpuscular Hemoglobin 33.4 pg (28.0-33.3); Mean Corpuscular Volume 95.3 fL (83.0-100.0); Mean Platelet Volume 8.7 fL (9.4-12.4); Platelet Count 166 K/mcL (140-400); Red Blood Count 3.62 M/mcL (4.19-5.50); Red Cell Distribution Width 12.3 % (11.5-14.5); White Blood Count 8.1 K/mcL (4.3-11.1)
[2019-04-12 04:28] LABS: BUN/Creatinine Ratio 12 (6-26); Blood Urea Nitrogen 8 mg/dL (8-23); Calcium 9.4 mg/dL (8.6-10.3); Carbon Dioxide 27 mEq/L (23-29); Chloride 92 mEq/L (98-107); Glucose 111 mg/dL (70-105); Magnesium 1.9 mg/dL (1.6-2.6); Osmolality,Calculated 259 (280-300); Potassium 4.2 mEq/L (3.5-5.1); Sodium 125 mEq/L (136-145); eGFR For African Americans > 60 (> 60); eGFR For Non-African Americans > 60 (> 60)
--- NOTE | 2019-04-12 06:43 | Electrocardiograph Report ---
[employer] [employer] 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
[2019-04-12] MEDS: Insulin LISPRO 300 UNITS/3 ML VIAL SQ SCH ×4 (07:52→21:41)
--- NOTE | 2019-04-12 11:00 | Internal Med Progress Note ---
Hospitalist Progress Note - Encounter Date of Encounter: 04/12/19 Time of Encounter: 08:30 - Subjective Interval History: Reports slight improvement in his weakness today. He states that he has had progressive worsening dysphagia, mostly over solid, over the last few months. Otherwise, no chest pain, palpitation, orthopnea, PND, or worsening leg swelli ng. - Exam Vitals: Temp Pulse Resp BP Pulse Ox 97.6 F 67 14 103/71 92 04/12/19 07:00 04/12/19 07:00 04/12/19 07:00 04/12/19 07:00 04/12/19 07:00 Exam: General: Alert and oriented, not in acute distress. Cardiovascular:Normal S1 & S2, No JVD. Pulse irregular, normal rate Lungs: clear to auscultation, no wheezes/rales Abdomen:Soft, non-tender, no rigidity. Extremities:No deformity or swelling Neurological: subjective weakness of LEs but also complicated by poor effort. No facial droop or dysarthria - Assessment and Plan (1) Hyponatremia Current Visit: Yes Status: Acute Assessment and Plan: In the setting of recently SSRI unchanged despite fluid restriction and salt tab will increase salt tab dosing today, continue to monitor if it doesnt improve over the course of today, would consider nephrology consultation (2) Dysphagia Current Visit: Yes Status: Acute Assessment and Plan: presented with progressive generalized weakness including dysphagia CT demonstrated esophageal distention which appears fluid-filled underwent speech eval yesterday and appears that his oral and pharyngeal swallowing functions were intact discussed with GI, for possible EGD today. 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 chronic obtain old records; if there is progressive decline in EF, would consult cardiology d/c diltiazem (4) Urinary retention Current Visit: Yes Status: Acute Assessment and Plan: nguyen inserted and started on flomax voiding trial prior to d/c (5) Atrial fibrillation Current Visit: Yes Status: Chronic Assessment and Plan: resume home meds except for diltiazem which had been discontinued (6) CAD (coronary artery disease) Current Visit: Yes Status: Chronic Assessment and Plan: resume home meds (7) Diabetes Current Visit: Yes Status: Chronic Assessment and Plan: Metformin and Amaryl on hold low dose sliding scale (8) DVT prophylaxis Current Visit: Yes Status: Acute Assessment and Plan: On Eliquis - Time Spent with Patient Total time spent is greater than 50% in coordination of care (as documented) at patient's floor/unit and/or counseling patient: 25 - 35 minutes Plan of Care Discussed with: patient Internal Medicine: Result - Labs CBC & Chem 7: 04/12/19 03:02 04/12/19 03:02 Labs: Short CBC 04/12/19 Range/Units 03:02 WBC 8.1 (4.3-11.1) K/mcL Hgb 12.1 L (12.9-16.9) g/dL Hct 34.5 L (37.5-50.1) % Plt Count 166 (140-400) K/mcL BMP 04/12/19 03:02 Sodium 125 L Potassium 4.2 Chloride 92 L Carbon Dioxide 27 BUN 8 Creatinine 0.68 L Glucose 111 H Calcium 9.4 - Impressions Impressions Echocardiogram 04/11/19 04:31 Impressions: LVEF 45-50%. Indeterminate diastolic function. The right ventricle was not well visualized Severely dilated left atrium. Mild-moderate mitral regurgitation. Moderate tricuspid regurgitation. Moderate pulmonary hypertension.Estimated RVSP is 48 mmHg. Left Ventricular Wall Motion: Rest Echo Findings The apical inferior, mid inferior, basal inferior, apical anterior, apical septal, mid inferior septal, basal inferior septal, apical lateral, mid anterior septal and basal anterior septal juarez were hypokinetic. The mid anterior, basal anterior, mid anterior lateral, basal anterior lateral, mid inferior lateral and basal inferior lateral juarez were not visualized. All other wall segments showed normal motion. Findings: Study Quality * Technically sub-optimal due to poor echocardiographic windows. ECG Findings * Atrial fibrillation. Left Ventricle * LVEF 45-50%. * Mildly dilated left ventricle. * Indeterminate diastolic function. * Atypical septal motion consistent with post-operative status. Right Ventricle * The right ventricle was not well visualized Left Atrium * Severely dilated left atrium. Right Atrium * Moderately dilated right atrium. Aortic Valve * Aortic valve not well visualized. * Moderately sclerotic aortic valve leaflets. * No aortic stenosis. * No aortic regurgitation. Mitral Valve * Mild mitral annular calcification * Mild-moderate mitral regurgitation. * No mitral stenosis. Tricuspid Valve * Moderate tricuspid regurgitation. * Moderate pulmonary hypertension. * Estimated RVSP is 48 mmHg. * Estimated RA pressure is 10 mmHg. Pulmonic Valve * Pulmonic valve not well visualized. * Trace pulmonic regurgitation. Aorta * Normally sized aortic root. Pericardium * The pericardium appears normal. IVC * The IVC is not well evaluated. Pulmonary Artery * Pulmonary artery not well visualized. Chest CT 04/11/19 10:30 IMPRESSION: 1. No evidence of malignancy as clinically queried. 2. Esophageal distension which appears fluid-filled. Patient is at risk for aspiration. 3. Small bilateral effusions with bibasilar atelectasis/scarring. 4. Severe atherosclerosis. 5. Cardiomegaly. D/ / 04/11/2019 12:52:24 Tiffanie Grimm MD / kayla Interpreting Provider: Tiffanie Grimm MD Head CT 04/11/19 10:30 IMPRESSION: 1. No acute intracranial abnormality. 2. Minimal global volume loss. 3. Atherosclerosis. D/ / Max Ma MD / Max Ma MD Interpreting Provider: Max Ma MD Consult Discharge Plan - Plan Referrals: NONE,PCP [Primary Care Provider] - (2) Dysphagia Qualifiers: Dysphagia type: unspecified Qualified Code(s): R13.10 - Dysphagia, unspecified (3) Systolic heart failure Qualifiers: Heart failure chronicity: unspecified Qualified Code(s): I50.20 - Unspecified systolic (congestive) heart failure (5) Atrial fibrillation Qualifiers: Atrial fibrillation type: unspecified Qualified Code(s): I48.91 - Unspecified atrial fibrillation (6) CAD (coronary artery disease) Qualifiers: Coronary Disease-Associated Artery/Lesion type: bypass graft [place] vs. transplanted heart: unspecified whether [place] or transplanted heart Associated angina: without angina Qualified Code(s): I25.810 - Atherosclerosis of coronary artery bypass graft(s) without angina pectoris (7) Diabetes Qualifiers: Diabetes mellitus type: type 2 Diabetes mellitus terminal carman insulin use: unspecified residential insulin use status Diabetes mellitus complication status: with other specified complication Qualified Code(s): E11.69 - Type 2 diabetes mellitus with other specified complication
--- NOTE | 2019-04-12 16:11 | Gastroenterology Consult Note ---
<Wilfredo Knowles - Last Filed: 04/12/19 16:09> Date of Encounter: 04/12/19 Time of Encounter: 11:15 - Assessment and plan (1) Dysphagia Current Visit: Yes Status: Acute Assessment and plan: Patient feeling solids get stuck in throat. EGD with possible dilation to r/o structural causes such as stricture, tumor, etc vs esophageal motility disorder. Keep NPO at midnight. Need sodium around 130 for EGD. Qualifiers: Dysphagia type: unspecified Qualified Code(s): R13.10 - Dysphagia, unspecified (2) Hyponatremia Current Visit: Yes Status: Acute Assessment and plan: Sodium 126 on admission and 125 today. Need sodium around 130 for EGD. Management per primary team. - Time Spent With Patient Total time spent is greater than 50% in coordination of care (as documented) at patient's floor/unit and/or counseling patient: GI History of Present Illness - Data of Consult Patient: new to practice Consult date: 04/12/19 Requesting Physician: Elías Keita MD - Consult Narrative Reason for consult: Dysphagia History of present illness: Mr. Gillespie is a 83 year old male with PMHx of AFib on eliquis, HTN, HLD, CAD, DM who presents to ED with a complaint of MUÑOZ, nausea, SOB, weakness x 3 days. He was started on Cymbalta 3 days prior to onset of symptom. He was also on lasix 60mg QD which he stopped taking 2 days prior to the presentation due to concern of "dehydration". Incidentally found hyponatremia that did not improve with IVF. Sodium 126 on admission and 125 today. We were consulted to evaluate dysphagia. He states he feels solids have been getting stuck in his throat for the past several years, but seem to be worsening. He reports having EGD with dilation previously. Procedures: Colonoscopy 11/16/2013 Dr. Dillard: 4 mm adenomatous polyp, serrated adenoma, repeat 5 years. EGD 01/25/2011 Dr. Singh: Food found in the lower third esophagus, nonsevere esophagitis. NSAIDs: None Anticoagulation: Eliquis Past Med Surg Social Fam HX - Past Medical History Medical history: arthritis, atrial fibrillation, CHF, coronary artery disease, diabetes, GERD, hyperlipidemia, hypertension Additional medical history: hemmorhoids, anemia, Psychiatric history: depression - Past Surgical History Surgical History: angioplasty/stent Additional surgical history: triple bypass surgery , 2 stents, nose surgery, hemmorhoid removal, back surgery - Social History Smoking Status: Former smoker Smokeless Tobacco Status: No Alcohol use: none Drug use: none - Family History Mother Living Status: Age at : 60 Cause of : heart attack Hx Family Cardiac Disorders: Yes Hx Family Respiratory Disorders: No Hx Family Cancer: Yes Hx Family GI Disorders: No Hx Family Genitourinary Disorders: No Hx Family Autoimmune Disorders: No Father Adopted: No Age at : 89 Cause of : pt stated he in sleep Hx Family Neurologic Disorders: Yes (CVA) - Gastrointestinal Gastrointestinal: Present: as per HPI - Constitutional Constitutional: as per HPI - EENT Eyes: as per HPI Ears: Present: as per HPI Nose, mouth and throat: Present: as per HPI - Cardiovascular Cardiovascular ROS: Present: as per HPI - Respiratory Respiratory IM: Present: as per HPI - Genitourinary Genitourinary: Absent: change in color, Urinary frequency - Neurological ROS Neurological GI: Present: as per HPI - Hematologic/Lymphatic Hematologic/Lymphatic pediatric: Present: as per HPI - Musculoskeletal Musculoskeletal ROS GI: Present: as per HPI - Integumentary Integumentary GI: Present: as per HPI - Psychiatric ROS Psychiatric GI: Present: as per HPI - Endocrine Endocrine IM: Present: as per HPI - Constitutional Vitals: Temp Pulse Resp BP Pulse Ox 97.8 F 64 14 122/64 96 04/12/19 14:57 04/12/19 14:57 04/12/19 14:57 04/12/19 14:57 04/12/19 14:57 General appearance: Present: cooperative, A&O X 3, no acute distress, answers questions appropriately - Head Head exam: Present: atraumatic, normocephalic - Eye Eye exam: Present: normal appearance, sclera anicteric - ENT ENT exam: Present: mucous membranes dry - Neck Neck exam general surgery: Present: normal inspection, trachea midline - Respiratory Respiratory exam: Present: decreased breath sounds, CTAB. Absent: rales, rhonchi - Cardiovascular Cardiovascular exam: Present: RRR, +S1, +S2 - GI/Abdominal GI/Abdominal exam: Present: soft, no peritoneal signs. Absent: distended, firm, guarding, tenderness - Rectal Rectal exam: Present: deferred - Extremities Exam Extremities exam: Present: warm - Neurological Exam Neurological exam: Present: no focal deficits - Psychiatric Psychiatric exam: Present: normal affect, normal mood - Skin Skin exam: Present: dry, intact, normal color, warm Results - Labs CBC & Chem 7: 04/12/19 03:02 04/12/19 03:02 Labs: Last Result 04/12/19 03:02 Calcium 9.4 Entire Visit 04/12/19 03:02 Hgb 12.1 L Hct 34.5 L - Impressions Impressions Echocardiogram 04/11/19 04:31 Impressions: LVEF 45-50%. Indeterminate diastolic function. The right ventricle was not well visualized Severely dilated left atrium. Mild-moderate mitral regurgitation. Moderate tricuspid regurgitation. Moderate pulmonary hypertension.Estimated RVSP is 48 mmHg. Left Ventricular Wall Motion: Rest Echo Findings The apical inferior, mid inferior, basal inferior, apical anterior, apical septal, mid inferior septal, basal inferior septal, apical lateral, mid anterior septal and basal anterior septal juarez were hypokinetic. The mid anterior, basal anterior, mid anterior lateral, basal anterior lateral, mid inferior lateral and basal inferior lateral juarez were not visualized. All other wall segments showed normal motion. Findings: Study Quality * Technically sub-optimal due to poor echocardiographic windows. ECG Findings * Atrial fibrillation. Left Ventricle * LVEF 45-50%. * Mildly dilated left ventricle. * Indeterminate diastolic function. * Atypical septal motion consistent with post-operative status. Right Ventricle * The right ventricle was not well visualized Left Atrium * Severely dilated left atrium. Right Atrium * Moderately dilated right atrium. Aortic Valve * Aortic valve not well visualized. * Moderately sclerotic aortic valve leaflets. * No aortic stenosis. * No aortic regurgitation. Mitral Valve * Mild mitral annular calcification * Mild-moderate mitral regurgitation. * No mitral stenosis. Tricuspid Valve * Moderate tricuspid regurgitation. * Moderate pulmonary hypertension. * Estimated RVSP is 48 mmHg. * Estimated RA pressure is 10 mmHg. Pulmonic Valve * Pulmonic valve not well visualized. * Trace pulmonic regurgitation. Aorta * Normally sized aortic root. Pericardium * The pericardium appears normal. IVC * The IVC is not well evaluated. Pulmonary Artery * Pulmonary artery not well visualized. Consult Discharge Plan - Plan Referrals: NONE,PCP [Primary Care Provider] - <Emilie Dillard - Last Filed: 04/12/19 22:54> Date of Encounter: 04/12/19 Time of Encounter: 17:00 - Time Spent With Patient Total time spent is greater than 50% in coordination of care (as documented) at patient's floor/unit and/or counseling patient: GI History of Present Illness - Data of Consult Requesting Physician: Elías Keita MD - Consult Narrative History of present illness: Mr. Gillespie is a 83 year old male - Constitutional Vitals: Temp Pulse Resp BP Pulse Ox 97.8 F 61 19 122/90 115 04/12/19 19:23 04/12/19 19:23 04/12/19 19:23 04/12/19 19:23 04/12/19 19:23 Results - Labs CBC & Chem 7: 04/12/19 03:02 04/12/19 03:02 - Impressions Impressions Echocardiogram 04/11/19 04:31 Impressions: LVEF 45-50%. Indeterminate diastolic function. The right ventricle was not well visualized Severely dilated left atrium. Mild-moderate mitral regurgitation. Moderate tricuspid regurgitation. Moderate pulmonary hypertension.Estimated RVSP is 48 mmHg. Left Ventricular Wall Motion: Rest Echo Findings The apical inferior, mid inferior, basal inferior, apical anterior, apical septal, mid inferior septal, basal inferior septal, apical lateral, mid anterior septal and basal anterior septal juarez were hypokinetic. The mid anterior, basal anterior, mid anterior lateral, basal anterior lateral, mid inferior lateral and basal inferior lateral juarez were not visualized. All other wall segments showed normal motion. Findings: Study Quality * Technically sub-optimal due to poor echocardiographic windows. ECG Findings * Atrial fibrillation. Left Ventricle * LVEF 45-50%. * Mildly dilated left ventricle. * Indeterminate diastolic function. * Atypical septal motion consistent with post-operative status. Right Ventricle * The right ventricle was not well visualized Left Atrium * Severely dilated left atrium. Right Atrium * Moderately dilated right atrium. Aortic Valve * Aortic valve not well visualized. * Moderately sclerotic aortic valve leaflets. * No aortic stenosis. * No aortic regurgitation. Mitral Valve * Mild mitral annular calcification * Mild-moderate mitral regurgitation. * No mitral stenosis. Tricuspid Valve * Moderate tricuspid regurgitation. * Moderate pulmonary hypertension. * Estimated RVSP is 48 mmHg. * Estimated RA pressure is 10 mmHg. Pulmonic Valve * Pulmonic valve not well visualized. * Trace pulmonic regurgitation. Aorta * Normally sized aortic root. Pericardium * The pericardium appears normal. IVC * The IVC is not well evaluated. Pulmonary Artery * Pulmonary artery not well visualized. Chest CT 04/11/19 10:30 IMPRESSION: 1. No evidence of malignancy as clinically queried. 2. Esophageal distension which appears fluid-filled. Patient is at risk for aspiration. 3. Small bilateral effusions with bibasilar atelectasis/scarring. 4. Severe atherosclerosis. 5. Cardiomegaly. D/ / 04/11/2019 12:52:24 Tiffanie Grimm MD / kayla Interpreting Provider: Tiffanie Grimm MD - Attending Attestation I have personally performed a face to face evaluation on this patient. I have reviewed and agree with the care plan. History and Exam by me shows: Patient seen. Complaining of dysphagia. On examination: Alert. No epigastric tenderness. Assessment: Dysphagia and abnormal CT of the esophagus showing's dilation. Recommendation: EGD in the morning
[2019-04-12] MEDS: *HR* OxyCODONE Immed Rel 5 MG TABLET PO PRN (21:39)
[2019-04-13] MEDS: Insulin LISPRO 300 UNITS/3 ML VIAL SQ SCH ×4 (01:20→21:23)
[2019-04-13 05:07] LABS: Hematocrit 35.9 % (37.5-50.1); Hemoglobin 12.1 g/dL (12.9-16.9); Mean Corpuscular HGB Conc 33.7 g/dL (31.6-35.5); Mean Corpuscular Hemoglobin 34.1 pg (28.0-33.3); Mean Corpuscular Volume 101.1 fL (83.0-100.0); Mean Platelet Volume 8.7 fL (9.4-12.4); Platelet Count 147 K/mcL (140-400); Red Blood Count 3.55 M/mcL (4.19-5.50); Red Cell Distribution Width 12.4 % (11.5-14.5); White Blood Count 8.6 K/mcL (4.3-11.1)
[2019-04-13 05:14] LABS: INR 1.3; Prothrombin Time 14.8 Seconds (9.4-12.1)
[2019-04-13 05:25] LABS: BUN/Creatinine Ratio 13 (6-26); Blood Urea Nitrogen 9 mg/dL (8-23); Calcium 8.9 mg/dL (8.6-10.3); Carbon Dioxide 27 mEq/L (23-29); Chloride 92 mEq/L (98-107); Glucose 126 mg/dL (70-105); Magnesium 1.9 mg/dL (1.6-2.6); Osmolality,Calculated 264 (280-300); Potassium 4.2 mEq/L (3.5-5.1); Sodium 127 mEq/L (136-145); eGFR For African Americans > 60 (> 60); eGFR For Non-African Americans > 60 (> 60)
[2019-04-13] MEDS: *HR* Digoxin 0.125 MG TABLET PO SCH ×2 (09:00→16:26)
--- NOTE | 2019-04-13 09:27 | Anesthesia Evaluation PreOp ---
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: Other (peripheral neuropathy) Other Medical History: Diabetes Type II Anesthesia History: No Prior Anesthetic Complications, Past Anesthesia (CABG x 3) Alcohol Use: none Drug use: none Medications and Allergies Apixaban [Eliquis] 5 mg PO BID 04/11/19 [History] Atorvastatin [Lipitor] 40 mg PO QPM 04/11/19 [History] Carvedilol 12.5 mg PO BID 04/11/19 [History] DULoxetine [Cymbalta] 30 mg PO DAILY 04/11/19 [History] Digoxin [Lanoxin] 0.125 mg PO DAILY 04/11/19 [History] Diltiazem CD (24hr) [Cardizem CD] 120 mg PO DAILY 04/11/19 [History] Furosemide [Lasix] 20 - 80 mg PO DAILY PRN 04/11/19 [History] Glimepiride [Amaryl] 4 mg PO QAM 04/11/19 [History] Metformin HCl [Fortamet] 500 mg PO BID 04/11/19 [History] Omeprazole [PriLOSEC] 20 mg PO DAILY 04/11/19 [History] Cholecalciferol (Vitamin D3) [Vitamin D3] 1,000 units PO QAM 04/12/19 [History] Allergy/AdvReac Type Severity Reaction Status Date / Time No Known Allergies Allergy Verified 04/12/19 10:12 - Meds/Allergy Pre-op Review Medications Reviewed: Yes Allergies Reviewed: Yes Beta Blockers on Current Med List: Yes If Beta Blockers taken, Date/Time (Last Dose taken): 1638 04/12/19 Anesthesia Results - Labs 04/13/19 04:55 04/13/19 04:55 - Imaging EKG: report reviewed (Interpretive Statements Atrial fibrillation Borderline repolarization abnormality Electronically Signed On 04-12-2019 6:41:33 EDT by Jim Enrique) Additional studies: Impressions: LVEF 45-50%. Indeterminate diastolic function. The right ventricle was not well visualized Severely dilated left atrium. Mild-moderate mitral regurgitation. Moderate tricuspid regurgitation. Moderate pulmonary hypertension.Estimated RVSP is 48 mmHg. Anesthesia Exam Vital Signs/O2 Sat, Most Current Temp Pulse Resp BP Pulse Ox 98.1 F 80 15 151/74 94 04/13/19 07:08 04/13/19 07:08 04/13/19 07:08 04/13/19 07:08 04/13/19 07:08 Weight: 93kg NPO (# of Hours): >8 - HEENT Pupil (Motor): Pupils equal, EOMI Mallampati: II Oral Opening: Greater than 3 - RADIO FREQUENCY TECHNICIAN LOC: Confused (mild) RADIO FREQUENCY TECHNICIAN Motor: Normal RUE, Normal LUE, Normal RLE, Normal LLE, Normal Face RADIO FREQUENCY TECHNICIAN Sensory: Normal: RUE, LUE, RLE, LLE, Face - Cardiac Rhythm: Irregular - Pulmonary Breath Sounds: bilateral Clear Respiratory Effort: Symmetrical Anesthesia Assess/Plan ASA Score: 3 Level of consciousness: Cooperative Anesthetic Plan: MAC Monitoring Plan: Standard Monitors Recovery Plan: PACU
[2019-04-13] MEDS ORDERED: Lidocaine -MPF 2% 2 ML VIAL ONE (09:35)
[2019-04-13] MEDS ORDERED: 0.9 % Sodium Chloride 1,000 ML IVC SCH (10:15)
--- NOTE | 2019-04-13 11:35 | Anesthesia Evaluation Post Op ---
Date of Encounter: 04/13/19 Time of Encounter: 11:34 - Vital Signs Vital Signs: Vital Signs/O2 Sat, Most Current Temp Pulse Resp BP Pulse Ox 97.5 F L 87 87 144/67 97 04/13/19 10:03 04/13/19 10:03 04/13/19 10:03 04/13/19 10:03 04/13/19 10:03 - Lungs Lungs: Clear Ascult./Percussion - Airway Airway: Non-obstructed - Mental Status Mental Status: Baseline Status - Pain Pain Scale: 0 Pain Scale used: Numeric (1 - 10) - Nausea Vomiting Nausea Vomiting: Not Present - Hydration Hydration: NPO - Discharge PostOp Status: Transfer Patient to floor
--- NOTE | 2019-04-13 13:36 | Nephrology Consult Note ---
Date of Encounter: 04/13/19 Time of Encounter: 13:00 Assessment and Plan (1) Hyponatremia Current Visit: Yes Status: Acute Hyponatremia on presentation [place] secondary to cymbalta, poor intake of food and water, and lasix use Currently trending up: initial 124 now 127 Continue Salt tabs TID Hold lasix Cymbalta has been discontinued Continue to monitor serum sodium concentration History of Present Illness - Reason for Consult Consult date: 04/13/19 hyponatremia Requesting physician: Anmol Link - Chief Complaint weakness - History of Present Illness Mr Mendez is an 83 year old male with history of Afib on coumadin, HTN, HLD, CAD, DM. Admitted to the hospital for weakness, dehydration, and medication side effect as well as hyponatremia and hypokalemia. Patient underwent EGD today with esophageal dilation for his worsening dysphagia. Patient was seen and examined at bedside today was still very groggy from his EGD this morning. Family in [facility] room informed me that he had been taking 60mg of lasix a day for a few days prior to coming to the hospital for increased leg swelling, he was also started on cymbalta 3 days before coming to the hospital. He had not been eating well for weeks as his dysphagia was getting worse and he had poor appetite after starting the cymbalta. HE also had not been drinking very much fluid. Denied any previous history of hyponatremia or kidney disease. Denied any family history of kidney disease. ON admission his sodium was 124, today his sodium has increased to 127. K is 4.2, Cl 92, Cr 0.68, BUN 9, GFR >60, Ca 8.9, Mg 1.9 Urine output today has been 300 ml so far and yesterday was 1000mls. Patient's salt tabs were increased to TID by primary team today. Past Med Surg Social Fam HX - Past Medical History Medical history: arthritis, atrial fibrillation, CHF, coronary artery disease, diabetes, GERD, hyperlipidemia, hypertension Additional medical history: hemmorhoids, anemia, Psychiatric history: depression - Past Surgical History Surgical History: angioplasty/stent Additional surgical history: triple bypass surgery , 2 stents, nose surgery, hemmorhoid removal, back surgery - Social History Smoking Status: Former smoker Smokeless Tobacco Status: No Alcohol use: none Drug use: none - Family History Mother Living Status: Age at : 60 Cause of : heart attack Hx Family Cardiac Disorders: Yes Hx Family Respiratory Disorders: No Hx Family Cancer: Yes Hx Family GI Disorders: No Hx Family Genitourinary Disorders: No Hx Family Autoimmune Disorders: No Father Adopted: No Age at : 89 Cause of : pt stated he in sleep Hx Family Neurologic Disorders: Yes (CVA) Medications and Allergies Apixaban [Eliquis] 5 mg PO BID 04/11/19 [History] Atorvastatin [Lipitor] 40 mg PO QPM 04/11/19 [History] Carvedilol 12.5 mg PO BID 04/11/19 [History] DULoxetine [Cymbalta] 30 mg PO DAILY 04/11/19 [History] Digoxin [Lanoxin] 0.125 mg PO DAILY 04/11/19 [History] Diltiazem CD (24hr) [Cardizem CD] 120 mg PO DAILY 04/11/19 [History] Furosemide [Lasix] 20 - 80 mg PO DAILY PRN 04/11/19 [History] Glimepiride [Amaryl] 4 mg PO QAM 04/11/19 [History] Metformin HCl [Fortamet] 500 mg PO BID 04/11/19 [History] Omeprazole [PriLOSEC] 20 mg PO DAILY 04/11/19 [History] Cholecalciferol (Vitamin D3) [Vitamin D3] 1,000 units PO QAM 04/12/19 [History] Allergy/AdvReac Type Severity Reaction Status Date / Time No Known Allergies Allergy Verified 04/12/19 10:12 Review of Systems Constitutional: anorexia, fatigue, headache(s), malaise, weakness Nose, mouth and throat: dysphagia Cardiovascular: irregular heart rhythm, no chest pain, no diaphoresis Respiratory: no cough Exam - Vital Signs Vital signs: Initial Vital Signs Temp Pulse Resp BP Pulse Ox 98 F 66 16 178/95 98 04/10/19 22:55 04/10/19 22:55 04/10/19 22:55 04/10/19 22:55 04/10/19 22:55 Vital Signs - Last 8 Hours Temp Pulse Resp BP Pulse Ox 04/13/19 10:03 97.5 F L 87 87 144/67 97 04/13/19 07:08 98.1 F 80 15 151/74 94 Intake and Output 04/12/19 04/13/19 04/13/19 23:59 07:59 15:59 Intake Total 240 / 540 Output Total 300 / 300 Balance 240 / -460 -300 / -300 Intake: Oral 240 / 540 Output: Catheter 300 / 300 Other: Meal Dinner Percent of Meal Consumed 5% Weight 93.7 kg Blood Glucose* 137 117 115 Patient Weight 04/13/19 23:59 Weight 93.7 kg - General Appearance General appearance: well-developed, well-nourished, fatigue EENT: mucous membranes moist Neck: no JVD Respiratory: clear Cardiology: no rub, no gallops, no edema, regular rate, irregular rhythm Gastrointestinal: normoactive bowel sounds, no tenderness, no guarding Integumentary: no rash, warm and dry Results - Lab Results 04/13/19 04:55 04/13/19 04:55 Most recent lab results 04/13/19 04:55 Calcium 8.9 Magnesium 1.9 Consult Discharge Plan - Plan Referrals: NONE,PCP [Primary Care Provider] -
--- NOTE | 2019-04-13 15:43 | Internal Med Progress Note ---
Hospitalist Progress Note - Encounter Date of Encounter: 04/13/19 Time of Encounter: 11:00 - Subjective Interval History: Patient was seen locally with his family member at bedside after his EGD. He looked somnolent this morning. He denied any chest pain, shortness of breath or palpitation. Choking event was noted by the nurse what he was eating. Speech eval did not recommend to eat full liquid diet and advance diet as per GI. - Exam Vitals: Temp Pulse Resp BP Pulse Ox 98.5 F 79 18 151/82 98 04/13/19 15:11 04/13/19 15:11 04/13/19 15:11 04/13/19 15:11 04/13/19 15:11 Exam: General: Drowsy, not in acute distress. Alert to place and self. Cardiovascular:Normal S1 & S2, No JVD. Pulse irregular, normal rate Lungs: clear to auscultation, no wheezes/rales Abdomen:Soft, non-tender, no rigidity. Extremities:No deformity or swelling Neurological: subjective weakness of LEs but also complicated by poor effort. No facial droop or dysarthria - Assessment and Plan (1) Diabetes Current Visit: Yes Status: Chronic (2) Hyponatremia Current Visit: Yes Status: Acute (3) CAD (coronary artery disease) Current Visit: Yes Status: Chronic (4) Systolic heart failure Current Visit: Yes Status: Chronic (5) Atrial fibrillation Current Visit: Yes Status: Chronic (6) Dysphagia Current Visit: Yes Status: Acute (7) Urinary retention Current Visit: Yes Status: Acute (8) DVT prophylaxis Current Visit: Yes Status: Acute - Summary of Assessment and Plan Summary of Assessment and Plan: Mr Mendez is an 83 year old male with history of Afib on coumadin, HTN, HLD, CAD, DM. Admitted to the hospital for weakness, dehydration, confusion and headache that was not related to Cymbalta that he started using recently. Metabolic Encephalopathy: - Patient looks confused and somnolent this a.m. after the EGD. Likely from sedation however cannot rule out infectious etiology. - Chest x-ray did not reveal any sign of aspiration pneumonia or fluid overload. - Urine was bloody and dark as per the RN, UA and urine cultures are ordered. - Patient is afebrile, has no leukocytosis. Blood cultures are ordered. - He is requiring 23 liters of oxygen, possibly CT of the chest to rule out aspiration. 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 - Sodium is improving, nephrology is consulted. Continue salt 3 times a day, and hold Lasix. - Patient looks euvolemic with physical exam. 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 - continue full liquid diet, Speech also evaluated the patient for questionable aspiration and they clear the patient for clear liquid. Urinary retention: - Patient had more than 1 L of urine With bladder scan yesterday - started on flomax. UA and UC are pending. if studies are negative, will consult urology. A.fib: - Continue Coreg, digoxin for rate control, Eliquis for anticoagulation, will continue. 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 chronic -obtain old records; if there is progressive decline in EF, would consult cardiology -d/c diltiazem Type II DM: - On oral hypoglycemic, he had on Accu-Cheks 3 times a day before meals and sliding scale coverage. Disposition: SNF as per PT/OT recommendations. - Time Spent with Patient Total time spent is greater than 50% in coordination of care (as documented) at patient's floor/unit and/or counseling patient: Plan of Care Discussed with: family Internal Medicine: Result - Labs CBC & Chem 7: 04/13/19 04:55 04/13/19 04:55 Labs: Short CBC 04/13/19 Range/Units 04:55 WBC 8.6 (4.3-11.1) K/mcL Hgb 12.1 L (12.9-16.9) g/dL Hct 35.9 L (37.5-50.1) % Plt Count 147 (140-400) K/mcL BMP 04/13/19 04:55 Sodium 127 L Potassium 4.2 Chloride 92 L Carbon Dioxide 27 BUN 9 Creatinine 0.68 L Glucose 126 H Calcium 8.9 - ABG Interpretation ABG results: PT/INR, D-dimer PT 14.8 Seconds (9.4-12.1) H 04/13/19 04:55 - Impressions Impressions Chest CT 04/11/19 10:30 IMPRESSION: 1. No evidence of malignancy as clinically queried. 2. Esophageal distension which appears fluid-filled. Patient is at risk for aspiration. 3. Small bilateral effusions with bibasilar atelectasis/scarring. 4. Severe atherosclerosis. 5. Cardiomegaly. D/ / 04/11/2019 12:52:24 Tiffanie Grimm MD / kayla Interpreting Provider: Tiffanie Grimm MD Chest X-Ray 04/13/19 13:29 IMPRESSION: 1. No acute cardiopulmonary disease. Specifically, no radiographic evidence of aspiration pneumonia. 2. Cardiomegaly. D/ / Tiffanie Grimm MD / Tiffanie Grimm MD Interpreting Provider: Tiffanie Grimm MD Consult Discharge Plan - Plan Referrals: NONE,PCP [Primary Care Provider] - (1) Diabetes Qualifiers: Diabetes mellitus type: type 2 Diabetes mellitus long-term insulin use: unspecified [place] insulin use status Diabetes mellitus complication status: with other specified complication Qualified Code(s): E11.69 - Type 2 diabetes mellitus with other specified complication (3) CAD (coronary artery disease) Qualifiers: Coronary Disease-Associated Artery/Lesion type: bypass graft [place] vs. transplanted heart: unspecified whether [place] or transplanted heart Associated angina: without angina Qualified Code(s): I25.810 - Atherosclerosis of coronary artery bypass graft(s) without angina pectoris (4) Systolic heart failure Qualifiers: Heart failure chronicity: unspecified Qualified Code(s): I50.20 - Unspecified systolic (congestive) heart failure (5) Atrial fibrillation Qualifiers: Atrial fibrillation type: unspecified Qualified Code(s): I48.91 - Unspecified atrial fibrillation (6) Dysphagia Qualifiers: Dysphagia type: unspecified Qualified Code(s): R13.10 - Dysphagia, unspecified
[2019-04-13 16:17] LABS: Bilirubin,Urine Small (Negative); Blood,Urine Large (Negative); Clarity,Urine Cloudy (Clear); Color,Urine Dark Yellow (Yellow); Glucose,Urine (UA) Normal (Normal); Ketones,Urine Trace mg/dL (Negative); Leukocyte Esterase,Urine Small (Negative); Nitrite,Urine Positive (Negative); PH,Urine 5.5 pH Units (5.0-8.0); Protein,Urine 100 mg/dL (Neg-Trace); Specific Gravity,Urine 1.023 (1.010-1.025)
[2019-04-13 16:19] LABS: Bacteria,Urine Moderate per hpf (None-Few); Hyaline Casts,Urine None Seen per lpf (None-Few); RBC,Urine TNTC per hpf (0-3); Squamous Epithelial Cell,Urine Few per lpf (None-Few); WBC,Urine 15-30 per hpf (0-3)
[2019-04-13] MEDS: 0.9 % Sodium Chloride 1,000 ML IVC SCH (16:27)
[2019-04-13] MEDS: cefTRIAXone 1,000 MG in Water for inj. (sterile) 10 ML IVP SCH (21:24)
[2019-04-13] MEDS: Apixaban 5 MG TABLET PO SCH (21:24)
[2019-04-13] MEDS: Acetaminophen 325 MG TABLET PO PRN (23:32)
[2019-04-14] MEDS: *HR* HYDROcodone/Acet 5/325 mg TABLET PO PRN ×2 (00:30→20:28)
[2019-04-14 05:09] LABS: Hematocrit 33.7 % (37.5-50.1); Hemoglobin 11.6 g/dL (12.9-16.9); Mean Corpuscular HGB Conc 34.4 g/dL (31.6-35.5); Mean Corpuscular Hemoglobin 34.3 pg (28.0-33.3); Mean Corpuscular Volume 99.7 fL (83.0-100.0); Mean Platelet Volume 8.9 fL (9.4-12.4); Platelet Count 155 K/mcL (140-400); Red Blood Count 3.38 M/mcL (4.19-5.50); Red Cell Distribution Width 12.4 % (11.5-14.5); White Blood Count 8.2 K/mcL (4.3-11.1)
[2019-04-14 05:27] LABS: BUN/Creatinine Ratio 15 (6-26); Blood Urea Nitrogen 9 mg/dL (8-23); Calcium 8.7 mg/dL (8.6-10.3); Carbon Dioxide 28 mEq/L (23-29); Chloride 94 mEq/L (98-107); Glucose 120 mg/dL (70-105); Osmolality,Calculated 264 (280-300); Potassium 4.1 mEq/L (3.5-5.1); Sodium 127 mEq/L (136-145); eGFR For African Americans > 60 (> 60); eGFR For Non-African Americans > 60 (> 60)
[2019-04-14] MEDS: *HR* Digoxin 0.125 MG TABLET PO SCH (07:48)
[2019-04-14] MEDS: Apixaban 5 MG TABLET PO SCH ×2 (07:48→20:29)
[2019-04-14] MEDS: Insulin LISPRO 300 UNITS/3 ML VIAL SQ SCH ×4 (07:49→20:25)
--- NOTE | 2019-04-14 09:43 | Nephrology Progress Note ---
Date of Encounter: 04/14/19 Time of Encounter: 09:43 Objective - Vital Signs Vital signs: Vital Signs Temp Pulse Resp BP Pulse Ox 04/14/19 06:23 98.0 F 87 137/72 99 04/14/19 05:57 98.4 F 80 14 147/67 99 04/13/19 21:20 98.4 F 68 14 157/89 99 04/13/19 16:00 98.2 F 87 19 155/81 98 04/13/19 15:11 98.5 F 79 18 151/82 98 04/13/19 10:03 97.5 F L 87 87 144/67 97 Intake and Output 04/13/19 04/14/19 04/14/19 23:59 07:59 15:59 Intake Total 420 / 780 60 / 540 480 / 540 Output Total 150 / 750 200 / 200 Balance 270 / 30 -140 / 340 480 / 340 Intake: Oral 420 / 780 60 / 540 480 / 540 Output: Catheter 150 / 750 200 / 200 Other: Meal Dinner Breakfast Percent of Meal Consumed 10% 100% Weight 94.9 kg Blood Glucose* 114 118 Patient Weight 04/14/19 23:59 Weight 94.9 kg - Lab 04/14/19 04:32 04/14/19 04:32 Most recent lab results 04/14/19 04:32 Calcium 8.7 Consult Discharge Plan - Plan Referrals: NONE,PCP [Primary Care Provider] -
[2019-04-14] MEDS: 0.9 % Sodium Chloride 1,000 ML IVC SCH (11:55)
--- NOTE | 2019-04-14 13:21 | Internal Med Progress Note ---
Hospitalist Progress Note - Encounter Date of Encounter: 04/14/19 Time of Encounter: 10:00 - Subjective Interval History: No major events overnight. Patient was seen this a.m. He denied fever, chills or night sweats. He has no nausea, vomiting or abdominal pain. Patient denied chest pain, shortness of breath or palpitation. - Exam Vitals: Temp Pulse Resp BP Pulse Ox 98 F 80 16 137/73 99 04/14/19 11:15 04/14/19 11:15 04/14/19 11:15 04/14/19 11:15 04/14/19 11:15 Exam: General: Patient is alert, oriented 3, no distress.. Head: Atraumatic, normal inspection, normocephalic. Eye: EOMI, PERRLA, ENT: Mucous membranes moist. \ Neck: Normal inspection, no meningismus. Respiratory: No respiratory distress, rhonchi, or wheezes noted. Cardiovascular: Regular rate and regular rhythm, S1 and S2 audible. No murmurs, rubs, or gallops. GI: Soft, nondistended, normal bowel sounds. Extremities:No joint swelling, pedal edema, or tenderness noted. Neurological: Alert, oriented 3, no focal deficits. Psychiatric: normal affect, normal mood. Skin: Dry, intact, warm. Normal color. No rashes. - Assessment and Plan (1) UTI (urinary tract infection) Current Visit: Yes Status: Acute (2) Hyponatremia Current Visit: Yes Status: Acute (3) Diabetes Current Visit: Yes Status: Chronic (4) CAD (coronary artery disease) Current Visit: Yes Status: Chronic (5) Atrial fibrillation Current Visit: Yes Status: Chronic (6) Dysphagia Current Visit: Yes Status: Acute (7) Systolic heart failure Current Visit: Yes Status: Chronic (8) Urinary retention Current Visit: Yes Status: Acute (9) DVT prophylaxis Current Visit: Yes Status: Acute - Summary of Assessment and Plan Summary of Assessment and Plan: Mr. Gillespie is a 83 year old male with a PMhx of AFib on eliquis, HTN, HLD, CAD, DM who presents to ED with a complaint of MUÑOZ, nausea, SOB, weakness x 3 days. His symptoms are managed as following: UTI: - Patient has urinary retention, UA is positive for LE and blood. - Urine cultures are pending. Patient is afebrile, hemoglobin are stable. He has no leukocytosis. - On Rocephin, day 2. We will continue. Hyponatremia: - Sodium is stable at 127. 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 - nephrology is consulted. Continue salt 3 times a day, and hold Lasix. - Patient looks euvolemic with physical exam. 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 - continue full liquid diet, Speech also evaluated the patient for questionable aspiration and they clear the patient for clear liquid. Urinary retention: - Secondary to above. Continue Flomax. - will remove nguyen and give the chance for voiding trial. Atrial fibrillation: -Rate controlled, continue Eliquis for anticoagulation and correct for rate control. Generalized Weakness: -Likely secondary to combination of dehydration, UTI and hyponatremia. 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 chronic -obtain old records; if there is progressive decline in EF, would consult cardiology -d/c diltiazem Type II DM: - On oral hypoglycemic, he had on Accu-Cheks 3 times a day before meals and sliding scale coverage. DVT ppx: on Eliquis Disposition: SNF as per PT/OT recommendations. I reviewed independently all laboratory workup, pertinent images including x- rays and CT scans. I also reviewed independently and EKGs and my findings are in the body of my assessment and plan. I ordered the laboratory workup and images myself. I discussed finding with patient's, their families, RN's and consultants involved in the care of the patient. - Time Spent with Patient Total time spent is greater than 50% in coordination of care (as documented) at patient's floor/unit and/or counseling patient: Plan of Care Discussed with: patient Internal Medicine: Result - Labs CBC & Chem 7: 04/14/19 04:32 04/14/19 04:32 Labs: Short CBC 04/14/19 Range/Units 04:32 WBC 8.2 (4.3-11.1) K/mcL Hgb 11.6 L (12.9-16.9) g/dL Hct 33.7 L (37.5-50.1) % Plt Count 155 (140-400) K/mcL BMP 04/14/19 04:32 Sodium 127 L Potassium 4.1 Chloride 94 L Carbon Dioxide 28 BUN 9 Creatinine 0.59 L Glucose 120 H Calcium 8.7 Urine 04/13/19 Range/Units Unknown Urine Color Dark Yellow (Yellow) Urine Clarity Cloudy A (Clear) Urine pH 5.5 (5.0-8.0) pH Units Ur Specific Sims 1.023 (1.010-1.025) Urine Protein 100 H (Neg-Trace) mg/dL Urine Glucose (UA) Normal (Normal) mg/dL - ABG Interpretation ABG results: PT/INR, D-dimer PT 14.8 Seconds (9.4-12.1) H 04/13/19 04:55 - Impressions Impressions Chest X-Ray 04/13/19 13:29 IMPRESSION: 1. No acute cardiopulmonary disease. Specifically, no radiographic evidence of aspiration pneumonia. 2. Cardiomegaly. 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 transplanted heart: unspecified whether [place] or transplanted heart Associated angina: without angina Qualified Code(s): I25.810 - Atherosclerosis of coronary artery bypass graft(s) without angina pectoris (5) Atrial fibrillation Qualifiers: Atrial fibrillation type: unspecified Qualified Code(s): I48.91 - Unspecified atrial fibrillation (6) Dysphagia Qualifiers: Dysphagia type: unspecified Qualified Code(s): R13.10 - Dysphagia, unspecified (7) Systolic heart failure Qualifiers: Heart failure chronicity: unspecified Qualified Code(s): I50.20 - Unspecified systolic (congestive) heart failure
[2019-04-14] MEDS ORDERED: cefTRIAXone 1,000 MG in Water for inj. (sterile) 10 ML IVP SCH (18:11)
[2019-04-14] MEDS: cefTRIAXone 1,000 MG in Water for inj. (sterile) 10 ML IVP SCH (20:29)
[2019-04-15 06:48] LABS: Hematocrit 34.6 % (37.5-50.1); Hemoglobin 11.7 g/dL (12.9-16.9); Mean Corpuscular HGB Conc 33.8 g/dL (31.6-35.5); Mean Corpuscular Hemoglobin 33.6 pg (28.0-33.3); Mean Corpuscular Volume 99.4 fL (83.0-100.0); Mean Platelet Volume 9.1 fL (9.4-12.4); Platelet Count 161 K/mcL (140-400); Red Blood Count 3.48 M/mcL (4.19-5.50); Red Cell Distribution Width 12.4 % (11.5-14.5); White Blood Count 7.2 K/mcL (4.3-11.1)
[2019-04-15 07:07] LABS: Alanine Aminotransferase 12 Units/L (7-52); Albumin 3.3 g/dL (3.5-5.7); Albumin/Globulin Ratio 1.3 (1.1-2.2); Alkaline Phosphatase 129 Units/L (34-104); Aspartate Amino Transferase 11 Units/L (13-39); BUN/Creatinine Ratio 11 (6-26); Bilirubin,Total 0.9 mg/dL (0.3-1.0); Blood Urea Nitrogen 7 mg/dL (8-23); Calcium 9.1 mg/dL (8.6-10.3); Carbon Dioxide 32 mEq/L (23-29); Chloride 93 mEq/L (98-107); Globulin 2.5 g/dL (2.4-3.5); Glucose 137 mg/dL (70-105); Osmolality,Calculated 268 (280-300); Potassium 4.3 mEq/L (3.5-5.1); Sodium 129 mEq/L (136-145); Total Protein 5.8 g/dL (6.4-8.9); eGFR For African Americans > 60 (> 60); eGFR For Non-African Americans > 60 (> 60)
[2019-04-15] MEDS: Apixaban 5 MG TABLET PO SCH ×2 (10:23→20:45)
[2019-04-15] MEDS: *HR* OxyCODONE Immed Rel 5 MG TABLET PO PRN (10:24)
[2019-04-15] MEDS: *HR* Digoxin 0.125 MG TABLET PO SCH (10:25)
[2019-04-15] MEDS: Insulin LISPRO 300 UNITS/3 ML VIAL SQ SCH ×4 (10:27→20:32)
--- NOTE | 2019-04-15 13:52 | Internal Med Progress Note ---
Hospitalist Progress Note - Encounter Date of Encounter: 04/15/19 Time of Encounter: 09:00 - Subjective Interval History: No major events overnight. Patient was seen this a.m. He denied fever, chills or night sweats. He has no nausea, vomiting or abdominal pain. Patient denied chest pain, shortness of breath or palpitation. Patient is complaining about pain from laying in the bed for the whole day. As a nurse to help the patient sit on the chair, opened the windows to reorient him. - Exam Vitals: Temp Pulse Resp BP Pulse Ox 97.8 F 86 16 158/75 98 04/15/19 06:48 04/15/19 06:48 04/15/19 04:57 04/15/19 06:48 04/15/19 04:57 Exam: General: Patient is alert, oriented 3, no distress.. Somehow drowsy Head: Atraumatic, normal inspection, normocephalic. Eye: EOMI, PERRLA, ENT: Mucous membranes moist. \ Neck: Normal inspection, no meningismus. Respiratory: No respiratory distress, rhonchi, or wheezes noted. Cardiovascular: Regular rate and irregular rhythm, S1 and S2 audible. No murmurs, rubs, or gallops. GI: Soft, nondistended, normal bowel sounds. Extremities:No joint swelling, pedal edema, or tenderness noted. Neurological: Alert, oriented 3, no focal deficits. Psychiatric: normal affect, normal mood. Skin: Dry, intact, warm. Normal color. No rashes. - Assessment and Plan (1) Hyponatremia Current Visit: Yes Status: Acute (2) Diabetes Current Visit: Yes Status: Chronic (3) CAD (coronary artery disease) Current Visit: Yes Status: Chronic (4) Atrial fibrillation Current Visit: Yes Status: Chronic (5) Dysphagia Current Visit: Yes Status: Acute (6) Systolic heart failure Current Visit: Yes Status: Chronic (7) Urinary retention Current Visit: Yes Status: Acute (8) DVT prophylaxis Current Visit: Yes Status: Acute - Summary of Assessment and Plan Summary of Assessment and Plan: Mr. Gillespie is a 83 year old male with a PMhx of AFib on eliquis, HTN, HLD, CAD, DM who presents to ED with a complaint of MUÑOZ, nausea, SOB, weakness x 3 days. His symptoms are managed as following: Hyponatremia: improving. - Sodium is stable at 129. 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 - nephrology is consulted. Continue salt tablets TID, and hold Lasix. - Patient looks euvolemic with physical exam. 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 - continue full liquid diet, Speech also evaluated the patient for questionable aspiration and they clear the patient for clear liquid. Urinary retention: - Patient has urinary retention, UA is positive for LE and blood. was started on Rocephine for 3 days, Urine cultures came back negative. Abx stopped, Continue Flomax. - will remove nguyen today, and give the chance for voiding trial. will bladder scan him q shift Atrial fibrillation: -Rate controlled, continue Eliquis for anticoagulation and correct for rate cont rol. Generalized Weakness: -Likely secondary to combination of dehydration, UTI and hyponatremia. - Stop Opiates, up to chair, frequent re-orientation. 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 chronic -d/c diltiazem Type II DM: - On oral hypoglycemic, he had on Accu-Cheks 3 times a day before meals and sliding scale coverage. DVT ppx: on Eliquis Disposition: SNF as per PT/OT recommendations. - Time Spent with Patient Total time spent is greater than 50% in coordination of care (as documented) at patient's floor/unit and/or counseling patient: Plan of Care Discussed with: patient Internal Medicine: Result - Labs CBC & Chem 7: 04/15/19 05:23 04/15/19 05:23 Labs: Short CBC 04/15/19 Range/Units 05:23 WBC 7.2 (4.3-11.1) K/mcL Hgb 11.7 L (12.9-16.9) g/dL Hct 34.6 L (37.5-50.1) % Plt Count 161 (140-400) K/mcL BMP 04/15/19 05:23 Sodium 129 L Potassium 4.3 Chloride 93 L Carbon Dioxide 32 H BUN 7 L Creatinine 0.62 L Glucose 137 H Calcium 9.1 Liver Function 04/15/19 Range/Units 05:23 Total Bilirubin 0.9 (0.3-1.0) mg/dL AST 11 L (13-39) Units/L ALT 12 (7-52) Units/L Alkaline Phosphatase 129 H (34-104) Units/L Albumin 3.3 L (3.5-5.7) g/dL - ABG Interpretation ABG results: PT/INR, D-dimer PT 14.8 Seconds (9.4-12.1) H 04/13/19 04:55 Consult Discharge Plan - Plan Referrals: NONE,PCP [Primary Care Provider] - (2) Diabetes Qualifiers: Diabetes mellitus type: type 2 Diabetes mellitus oil [place] insulin use: unspecified senior care insulin use status Diabetes mellitus complication status: with other specified complication Qualified Code(s): E11.69 - Type 2 diabetes mellitus with other specified complication (3) CAD (coronary artery disease) Qualifiers: Coronary Disease-Associated Artery/Lesion type: bypass graft [place] vs. transplanted heart: unspecified whether [place] or transplanted heart Associated angina: without angina Qualified Code(s): I25.810 - Atherosclerosis of coronary artery bypass graft(s) without angina pectoris (4) Atrial fibrillation Qualifiers: Atrial fibrillation type: unspecified Qualified Code(s): I48.91 - Unspecified atrial fibrillation (5) Dysphagia Qualifiers: Dysphagia type: unspecified Qualified Code(s): R13.10 - Dysphagia, unspecified (6) Systolic heart failure Qualifiers: Heart failure chronicity: unspecified Qualified Code(s): I50.20 - Unspecified systolic (congestive) heart failure
[2019-04-15] MEDS ORDERED: Insulin DETEMIR 100 UNIT/ML X5UNITS SQ SCH (21:00)
[2019-04-16 05:06] LABS: BUN/Creatinine Ratio 14 (6-26); Blood Urea Nitrogen 8 mg/dL (8-23); Calcium 9.4 mg/dL (8.6-10.3); Carbon Dioxide 33 mEq/L (23-29); Chloride 93 mEq/L (98-107); Glucose 132 mg/dL (70-105); Osmolality,Calculated 274 (280-300); Potassium 4.5 mEq/L (3.5-5.1); Sodium 132 mEq/L (136-145); eGFR For African Americans > 60 (> 60); eGFR For Non-African Americans > 60 (> 60)
[2019-04-16] MEDS: Acetaminophen 325 MG TABLET PO PRN (05:26)
[2019-04-16] MEDS: *HR* Digoxin 0.125 MG TABLET PO SCH (09:18)
[2019-04-16] MEDS: Apixaban 5 MG TABLET PO SCH (09:18)
[2019-04-16] MEDS: Insulin LISPRO 300 UNITS/3 ML VIAL SQ SCH ×2 (09:19→12:54)
--- NOTE | 2019-04-16 15:07 | Internal Med Progress Note ---
Hospitalist Progress Note - Encounter Date of Encounter: 04/16/19 Time of Encounter: 10:25 - Subjective Interval History: No major events overnight. Patient was seen this a.m. He denied fever, chills or night sweats. He has no nausea, vomiting or abdominal pain. Patient denied chest pain, shortness of breath or palpitation. - Exam Vitals: Temp Pulse Resp BP Pulse Ox 97.9 F 92 18 149/79 97 04/16/19 07:08 04/16/19 10:46 04/16/19 10:46 04/16/19 10:46 04/16/19 10:46 Exam: General: Patient is alert, oriented 3, no distress.. Head: Atraumatic, normal inspection, normocephalic. Eye: EOMI, PERRLA, ENT: Mucous membranes moist. \ Neck: Normal inspection, no meningismus. Respiratory: No respiratory distress, rhonchi, or wheezes noted. Cardiovascular: Regular rate and irregular rhythm, S1 and S2 audible. No murmurs, rubs, or gallops. GI: Soft, nondistended, normal bowel sounds. Extremities:No joint swelling, pedal edema, or tenderness noted. Neurological: Alert, oriented 3, no focal deficits. Psychiatric: normal affect, normal mood. Skin: Dry, intact, warm. Normal color. No rashes. - Assessment and Plan (1) Hyponatremia Current Visit: Yes Status: Acute (2) Diabetes Current Visit: Yes Status: Chronic (3) CAD (coronary artery disease) Current Visit: Yes Status: Chronic (4) Atrial fibrillation Current Visit: Yes Status: Chronic (5) Dysphagia Current Visit: Yes Status: Acute (6) Systolic heart failure Current Visit: Yes Status: Chronic (7) Urinary retention Current Visit: Yes Status: Acute (8) DVT prophylaxis Current Visit: Yes Status: Acute - Summary of Assessment and Plan Summary of Assessment and Plan: Mr. Gillespie is a 83 year old male with a PMhx of AFib on eliquis, HTN, HLD, CAD, DM who presents to ED with a complaint of MUÑOZ, nausea, SOB, weakness x 3 days. His symptoms are managed as following: Hyponatremia: improving. - Sodium is stable at 132. 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 - nephrology is consulted. Continue salt tablets TID, and hold Lasix. - Patient looks euvolemic with physical exam. -o rdred BMP for tomorrow. 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 - advance to regular diet after discussion with GI, Speech also evaluated the patient for questionable aspiration and they clear the patient. Urinary retention: resolved - Patient has urinary retention, UA is positive for LE and blood. was started on Rocephine for 3 days, Urine cultures came back negative. Abx stopped, Continue Flomax. - will remove nguyen today, and give the chance for voiding trial. will bladder scan him q shift Atrial fibrillation: -Rate controlled, continue Eliquis for anticoagulation and correct for rate control. Generalized Weakness: -Likely secondary to combination of dehydration, hyponatremia and deconditiong -Stop Opiates, up to chair, frequent re-orientation. -PT/OT recommended SNF. 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 chronic -d/c diltiazem Type II DM: - On oral hypoglycemic, he had on Accu-Cheks 3 times a day before meals and sliding scale coverage. DVT ppx: on Eliquis Disposition: SNF as per PT/OT recommendations. - Time Spent with Patient Total time spent is greater than 50% in coordination of care (as documented) at patient's floor/unit and/or counseling patient: Plan of Care Discussed with: patient Internal Medicine: Result - Labs CBC & Chem 7: 04/15/19 05:23 04/16/19 03:56 Labs: BMP 04/16/19 03:56 Sodium 132 L Potassium 4.5 Chloride 93 L Carbon Dioxide 33 H BUN 8 Creatinine 0.59 L Glucose 132 H Calcium 9.4 - ABG Interpretation ABG results: PT/INR, D-dimer PT 14.8 Seconds (9.4-12.1) H 04/13/19 04:55 Consult Discharge Plan - Plan Referrals: NONE,PCP [Primary Care Provider] - (2) Diabetes Qualifiers: Diabetes mellitus type: type 2 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 transplanted heart: unspecified whether [place] or transplanted heart Associated angina: without angina Qualified Code(s): I25.810 - Atherosclerosis of coronary artery bypass graft(s) without angina pectoris (4) Atrial fibrillation Qualifiers: Atrial fibrillation type: unspecified Qualified Code(s): I48.91 - Unspecified atrial fibrillation (5) Dysphagia Qualifiers: Dysphagia type: unspecified Qualified Code(s): R13.10 - Dysphagia, unspecified (6) Systolic heart failure Qualifiers: Heart failure chronicity: unspecified Qualified Code(s): I50.20 - Unspecified systolic (congestive) heart failure
[2019-04-16 15:28] VITALS: BP 151/79
--- NOTE | 2019-04-16 16:23 | Discharge Summary ---
- NOTES TO OUTPATIENT PROVIDER Notes to Outpatient Provider: Follow up on sodium level. Follow-up with nephrology Orders not resulted at time of discharge: Pending orders 04/13/19 15:08 Culture,Blood [BC] Routine 04/14/19 07:58 Osmolality,Urine [UCHEM] Routine 04/17/19 04:00 BMP [Basic Metabolic Panel] AM 0400 Date of Encounter: 04/16/19 Time of Encounter: 10:00 - Discharge Diagnosis (1) Hyponatremia Priority: Primary Status: Acute (2) Diabetes Priority: Secondary Status: Chronic Qualifiers: Diabetes mellitus type: type 2 Diabetes mellitus [place] insulin use: unspecified longterm insulin use status Diabetes mellitus complication status: with other specified complication Qualified Code(s): E11.69 - Type 2 diabetes mellitus with other specified complication (3) CAD (coronary artery disease) Priority: Secondary Status: Chronic Qualifiers: Coronary Disease-Associated Artery/Lesion type: bypass graft [place] vs. transplanted heart: unspecified whether [place] or transplanted heart Associated angina: without angina Qualified Code(s): I25.810 - Atherosclerosis of coronary artery bypass graft(s) without angina pectoris (4) Atrial fibrillation Priority: Secondary Status: Chronic Qualifiers: Atrial fibrillation type: unspecified Qualified Code(s): I48.91 - Unspec ified atrial fibrillation (5) Dysphagia Priority: Secondary Status: Acute Qualifiers: Dysphagia type: unspecified Qualified Code(s): R13.10 - Dysphagia, unspecified (6) Systolic heart failure Priority: Secondary Status: Chronic Qualifiers: Heart failure chronicity: unspecified Qualified Code(s): I50.20 - Unspecified systolic (congestive) heart failure (7) Urinary retention Priority: Secondary Status: Acute (8) DVT prophylaxis Priority: Secondary Status: Acute Hospital course: Mr. Gillespie is a 83 year old male with a PMhx of AFib on eliquis, HTN, HLD, CAD, DM who presents to the hospital with a complaint of headache, nausea, SOB, weakness x 3 days. Patient initially was found to be hyponatremic with sodium down to 125. Nephrology service was consulted and his hyponatremia was related to dehydration and SIADH due to Cymbalta. Patient was managed with fluid restriction and salt tablets with significant improvement of his sodium to 132 before discharge. I discussed with nephrology and he recommended to continue 1 salt tablets a day and follow-up as outpatient. He also had urinary retention for which he was started on Rocephin given his UA finding. His antibiotic was stopped after his urine culture came back negative. Patient was placed on Flomax and he passed the voiding trial. Patient also complained about dysphagia. His CT scan of the chest revealed esophageal distention which required GI consult and esophageal dilation with EGD. Patient tolerated clear liquid diet which was advanced to regular diet after he was cleared by speech therapy. Patient remained weak throughout hospitalization and physical therapy/occupation therapy recommended senior living placement. Today, patient is hemodynamically stable. He is generally weak and he will benefit from aggressive physical and occupational therapy. He will be discharged to senior living in stable condition. Discharge discussed with: patient - Time Spent with Patient Total time spent providing and/or coordinating discharge services: 45 minutes - Discharge Medications Prescriptions: New Tamsulosin [Flomax] 0.4 mg PO DAILY #30 capsule Sodium Chloride [Sodium Chloride Tab] 1 gm PO DAILY #10 tablet Continued Atorvastatin [Lipitor] 40 mg PO QPM Omeprazole [PriLOSEC] 20 mg PO DAILY Digoxin [Lanoxin] 0.125 mg PO DAILY Glimepiride [Amaryl] 4 mg PO QAM Carvedilol 12.5 mg PO BID Apixaban [Eliquis] 5 mg PO BID Furosemide [Lasix] 20 - 80 mg PO DAILY PRN PRN Reason: LEG SWELLING Metformin HCl [Fortamet] 500 mg PO BID Cholecalciferol (Vitamin D3) [Vitamin D3] 1,000 units PO QAM Discontinued DULoxetine [Cymbalta] 30 mg PO DAILY Diltiazem CD (24hr) [Cardizem CD] 120 mg PO DAILY Home Medications: Apixaban [Eliquis] 5 mg PO BID 04/11/19 [History] Atorvastatin [Lipitor] 40 mg PO QPM 04/11/19 [History] Carvedilol 12.5 mg PO BID 04/11/19 [History] Digoxin [Lanoxin] 0.125 mg PO DAILY 04/11/19 [History] Furosemide [Lasix] 20 - 80 mg PO DAILY PRN 04/11/19 [History] Glimepiride [Amaryl] 4 mg PO QAM 04/11/19 [History] Metformin HCl [Fortamet] 500 mg PO BID 04/11/19 [History] Omeprazole [PriLOSEC] 20 mg PO DAILY 04/11/19 [History] Cholecalciferol (Vitamin D3) [Vitamin D3] 1,000 units PO QAM 04/12/19 [History] Sodium Chloride [Sodium Chloride Tab] 1 gm PO DAILY #10 tablet 04/16/19 [Rx] Tamsulosin [Flomax] 0.4 mg PO DAILY #30 capsule 04/16/19 [Rx] Allergies/Adverse Reactions: Allergy/AdvReac Type Severity Reaction Status Date / Time No Known Allergies Allergy Verified 04/12/19 10:12 Date of admission: 04/13/19 13:43 Primary care physician: PCP NONE Consults: 04/11/19 14:12 Consult to Gastroenterology [CONS] Routine Consulting Provider: [facility] [place] Reason for Consult: esophageal distension and dysphagia Call Completed: Yes 04/11/19 16:11 Consult to Occupational Therapy [CONS] Routine Comment: Evaluate, develop and implement POC Reason for Consult: generalized weakness Does patient have active BEDREST order?: No Is patient medically & hemodynamically stable?: Yes Consult to Physical Therapy [CONS] Routine Comment: Evaluate, develop and implement POC Reason for Consult: generalized weakness Does patient have active BEDREST order?: No Is patient medically & hemodynamically stable?: Yes 04/13/19 12:07 Consult to Nephrology [CONS] Routine Consulting Provider: [facility] Jaymie/XIN/MAMTA/JASMEET Reason for Consult: hyponatermia Call Completed: Yes 04/13/19 12:18 Consult to Speech Therapy [CONS] Routine Comment: Evaluate, develop and implement POC Reason for Consult: PT HAD EGD WITH DILATION TODAY AND IS CHOKING ON LUNCH. FULL LIQUID DIET Time Notified: 12:19 Call Completed: Yes - Constitutional Vitals: Temp Pulse Resp BP Pulse Ox 98.4 F 82 12 151/79 95 04/16/19 15:25 04/16/19 15:25 04/16/19 15:25 04/16/19 15:25 04/16/19 15:25 General appearance: Present: cooperative, mild distress, A&O X 3, pleasant, answers questions appropriately Exam: General: Patient is alert, oriented 3, no distress.. Head: Atraumatic, normal inspection, normocephalic. Eye: EOMI, PERRLA, ENT: Mucous membranes moist. \ Neck: Normal inspection, no meningismus. Respiratory: No respiratory distress, rhonchi, or wheezes noted. Cardiovascular: Regular rate and irregular rhythm, S1 and S2 audible. No murmurs, rubs, or gallops. GI: Soft, nondistended, normal bowel sounds. Extremities:No joint swelling, pedal edema, or tenderness noted. Neurological: Alert, oriented 3, no focal deficits. Psychiatric: normal affect, normal mood. Skin: Dry, intact, warm. Normal color. No rashes. - Patient Status Disposition: Transfer SNF Condition: Good Functional capacity at discharge: bed bound Overall status at discharge: patient is back to baseline - Discharge Instructions Follow Up With: NONE,PCP [Primary Care Provider] - - Diet and Activity Activity: as per physical therapy Diet: low salt diet
--- NOTE | 2019-04-16 16:31 | Physician Discharge Referral ---
ExtendedCare Referral Info Transfer To: traditional SNF Provider in Charge after Transfer: PCP Institutional Level of Care: Skilled - Diagnosis (1) Hyponatremia Status: Acute (2) Diabetes Priority: Secondary Status: Chronic (3) CAD (coronary artery disease) Priority: Secondary Status: Chronic (4) Atrial fibrillation Priority: Secondary Status: Chronic (5) Dysphagia Priority: Secondary Status: Acute (6) Systolic heart failure Priority: Secondary Status: Chronic (7) Urinary retention Priority: Secondary Status: Acute (8) DVT prophylaxis Priority: Secondary Status: Acute Prognosis: Good Aware of Diagnosis: Patient Aware of Prognosis: Patient - Transfer Medications Prescriptions: Tamsulosin [Flomax] 0.4 mg PO DAILY #30 capsule Sodium Chloride [Sodium Chloride Tab] 1 gm PO DAILY #10 tablet Home Medications: Apixaban [Eliquis] 5 mg PO BID 04/11/19 [History] Atorvastatin [Lipitor] 40 mg PO QPM 04/11/19 [History] Carvedilol 12.5 mg PO BID 04/11/19 [History] Digoxin [Lanoxin] 0.125 mg PO DAILY 04/11/19 [History] Furosemide [Lasix] 20 - 80 mg PO DAILY PRN 04/11/19 [History] Glimepiride [Amaryl] 4 mg PO QAM 04/11/19 [History] Metformin HCl [Fortamet] 500 mg PO BID 04/11/19 [History] Omeprazole [PriLOSEC] 20 mg PO DAILY 04/11/19 [History] Cholecalciferol (Vitamin D3) [Vitamin D3] 1,000 units PO QAM 04/12/19 [History] Sodium Chloride [Sodium Chloride Tab] 1 gm PO DAILY #10 tablet 04/16/19 [Rx] Tamsulosin [Flomax] 0.4 mg PO DAILY #30 capsule 04/16/19 [Rx] Allergies/Adverse Reactions: Allergy/AdvReac Type Severity Reaction Status Date / Time No Known Allergies Allergy Verified 04/12/19 10:12 - Respiratory Orders Smoking Cessation: Smoking cessation has been advised. For more information, call the [place] Tobacco Quit Line at 3-562-GGDM-NOW. - Mobility Orders Bedrest - Rehabiliation Orders Rehab Potential: Good Rehab Orders: Evaluation for Physical Therapy, Evaluation for Occupational Therapy - Treatments Skin tear care topically daily PRN per policy - Diet Orders Cardiac CERTIFICATION: I certify that the transfer of the above named patient to an Extended Care Facility is necessary for the continuing treatment of the diagnosis listed. The above information is true and accurate reflection of patient's current condition. Confidential - Redisclosure prohibited without a patient's written consent.
--- NOTE | 2019-04-17 22:12 | Emergency Department Note ---
Disposition Clinical Impression: Shortness of breath at rest Headache Qualifiers: Headache type: other headache syndrome Qualified Code(s): G44.89 - Other headache syndrome Disposition: Admitted As Inpatient Condition: Good Time of Disposition: 02:00 General Adult HPI - General Chief complaint: ED Shortness of Breath/Dyspnea Stated complaint: SoB/MUÑOZ/nausea Time Seen by Provider: 04/10/19 22:54 Source: patient, EMS Limitations: no limitations - History of Present Illness HPI Narrative: 83-year-old male presented with 3 days of worsening headache and nausea. He states that the onset of these symptoms correlated with him starting taking Cymbalta at the direction of his primary care physician. He took the Cymbalta for 3 days as directed but did not take it on the day of his presentation to the ED, as he believed it was the cause of his complaints. He reports a headache which is rated a 8 out of 10, is bilateral, frontal, has not moved, and is poorly defined. He denies any sensitivity to light or sound and does not have any blurry vision or double vision. He also reports nausea and mild shortness of breath and global weakness without any specific. He also reports pain with urination and increased frequency. Patient has a large number of family members at the bedside. Pain Scale: 5 - Related Data Home Medications Medication Instructions Recorded Confirmed Apixaban [Eliquis] 5 mg PO BID 04/11/19 04/12/19 Atorvastatin [Lipitor] 40 mg PO QPM 04/11/19 04/12/19 Carvedilol 12.5 mg PO BID 04/11/19 04/12/19 Digoxin [Lanoxin] 0.125 mg PO DAILY 04/11/19 04/12/19 Furosemide [Lasix] 20 - 80 mg PO DAILY PRN 04/11/19 04/12/19 Glimepiride [Amaryl] 4 mg PO QAM 04/11/19 04/12/19 Metformin HCl [Fortamet] 500 mg PO BID 04/11/19 04/12/19 Omeprazole [PriLOSEC] 20 mg PO DAILY 04/11/19 04/12/19 Cholecalciferol (Vitamin D3) 1,000 units PO QAM 04/12/19 04/12/19 [Vitamin D3] Previous Rx's Medication Instructions Recorded Sodium Chloride [Sodium Chloride 1 gm PO DAILY #10 tablet 04/16/19 Tab] Tamsulosin [Flomax] 0.4 mg PO DAILY #30 capsule 04/16/19 Allergies Allergy/AdvReac Type Severity Reaction Status Date / Time No Known Allergies Allergy Verified 04/12/19 10:12 All systems ED: reviewed and negative except as stated. Review of Systems: As Per HPI Constitutional: Reports: weakness (Global) Eyes: Denies: vision change ENT ED: Denies: hearing loss Cardiovascular: Denies: chest pain, palpitations, dyspnea on exertion Respiratory: Reports: cough, dyspnea. Denies: wheezes, hemoptysis Gastrointestinal: Reports: nausea, constipation Genitourinary: Reports: dysuria, frequency Neurological: Reports: headache, weakness. Denies: numbness, paresthesias Endocrine: Reports: fatigue Past Medical History - Past Medical History Medical history: Reports: arthritis, atrial fibrillation, CHF, coronary artery disease, diabetes, GERD, hyperlipidemia, hypertension Surgical history: Reports: angioplasty/stent Psychiatric history: Reports: depression - Social History Smoking Status: Former smoker Smokeless Tobacco Status: No Alcohol use: Reports: none Drug use: Reports: none Physical Exam - General Limitations: no limitations General appearance: alert, in no apparent distress - Head Head exam: atraumatic, normocephalic - Eye Eye exam: Present: normal appearance. Absent: scleral icterus, conjunctival injection - ENT ENT exam: mucous membranes dry - Neck Neck exam: Present: normal inspection, trachea midline. Absent: lymphadenopathy, thyromegaly - Chest Chest inspection: Present: normal inspection, symmetric chest wall rise - Respiratory Respiratory exam: Present: normal lung sounds bilaterally. Absent: respiratory distress - Cardiovascular Cardiovascular exam: Present: regular rate, normal rhythm - Abdominal Exam Abdominal exam: Present: soft, Non-Tender. Absent: distention, guarding, rebo und - Extremities Exam Extremities exam: Present: other (5 out of 5 muscle strength in all extremities) - Neurological Exam Neurological exam: Present: alert, oriented X3, CN II-XII intact - Psychiatric Psychiatric exam: Present: normal affect, normal mood - Skin Skin exam: Present: warm, dry, intact, normal color Course Vital Signs Temperature 98 F 04/10/19 22:55 Pulse Rate 66 04/10/19 22:55 Respiratory Rate 16 04/10/19 22:55 Blood Pressure 178/95 04/10/19 22:55 O2 Sat by Pulse Oximetry 98 07/09/19 22:55 Temperature 98.4 F 04/16/19 15:25 Pulse Rate 82 04/16/19 15:25 Respiratory Rate 12 04/16/19 15:25 Blood Pressure 151/79 04/16/19 15:25 O2 Sat by Pulse Oximetry 95 04/16/19 15:25 Oxygen Delivery Oxygen Delivery Room Air Medical Decision Making - MDM Narrative Medical decision making narrative: 83-year-old male came in with complaints of headache nausea or shortness of breath and subjective weakness, he described the symptoms to be secondary to starting Cymbalta. He also admitted to symptoms concerning for UTI, but was found on urinalysis to not have evidence of UTI. His cardiac workup including Troponin, EKG, chest x-ray were negative for any concerns of cardiac pathology. In addition, his persistent oxygen saturation above 97%, as well as a non-concerning chest x-ray, and lack of any evidence of infection and reduce the likelihood of there is any pulmonary pathology contributing also. On neurological exam, Dr. Jordan and I were both unable to elicit any focal deficits in motor strength or sensation. His headache is not associated with fever or any other systemic symptoms, was not maximal in onset, is not associated with any vision changes or other focal neurological deficits. This responded poorly to Tylenol and to Compazine in the ED, and will require further workup as an inpatient. Given this patient's age, extensive cardiac history of [place], CABG, stenting, as well as severity of concern expressed by his numerous family members at the bedside, the decision was made to admit him to medicine to further workup his headache shortness of breath and subjective weakness. Medicine has accepted the patient - Medical Records Medical records reviewed: Yes I reviewed the patient's medical records. - Lab Data Lab results reviewed: Yes I reviewed the patient's lab results. Result diagrams: 04/15/19 05:23 04/16/19 03:56 Lab Results 04/10/19 04/10/19 04/11/19 Range/Units 23:43 23:43 01:33 WBC 8.5 (4.3-11.1) K/mcL RBC 3.80 L (4.19-5.50) M/mcL Hgb 12.8 L (12.9-16.9) g/dL Hct 35.8 L (37.5-50.1) % MCV 94.2 D (83.0-100.0) fL MCH 33.7 H (28.0-33.3) pg MCHC 35.8 H (31.6-35.5) g/dL RDW 12.0 (11.5-14.5) % Plt Count 162 (140-400) K/mcL MPV 8.7 L (9.4-12.4) fL Immature Gran % 0.5 (0-4) % Seg Neutrophils % 73.3 % Lymphocytes % 13.9 % Monocytes % 11.5 % Eosinophils % 0.6 % Basophils % 0.2 % Neutrophils # 6.2 (1.6-8.9) K/mcL Lymphocytes # 1.2 (0.6-4.6) K/mcL Monocytes # 1.0 (0.0-1.3) K/mcL Eosinophils # 0.1 (0.0-0.6) K/mcL Basophils # 0.0 (0.0-0.2) K/mcL PT (9.4-12.1) Seconds INR Sodium 126 L (136-145) mEq/L Potassium 3.4 L (3.5-5.1) mEq/L Chloride 91 L (98-107) mEq/L Carbon Dioxide 25 (23-29) mEq/L BUN 9 (8-23) mg/dL Creatinine 0.56 L (0.70-1.30) mg/dL Est GFR ( Amer) > 60 (> 60) Est GFR (Non-Af Amer) > 60 (> 60) BUN/Creatinine Ratio 16 (6-26) Glucose 103 (70-105) mg/dL POC Glucose (70-99) mg/dL Calculated Osmolality 261 L (280-300) Calcium 9.3 (8.6-10.3) mg/dL Magnesium (1.6-2.6) mg/dL Total Bilirubin 1.6 H (0.3-1.0) mg/dL AST 17 (13-39) Units/L ALT 13 (7-52) Units/L Alkaline Phosphatase 97 (34-104) Units/L Troponin I < 0.03 (< 0.04) ng/mL Serum Total Protein 6.5 (6.4-8.9) g/dL Albumin 3.9 (3.5-5.7) g/dL Globulin 2.6 (2.4-3.5) g/dL Albumin/Globulin Ratio 1.5 (1.1-2.2) TSH (0.340-5.600) mcIU/mL Random Cortisol mcg/dl Urine Color Yellow (Yellow) Urine Clarity Clear (Clear) Urine pH 7.0 (5.0-8.0) pH Units Ur Specific [place] 1.020 (1.010-1.025) Urine Protein Negative (Neg-Trace) mg/dL Urine Glucose (UA) Normal (Normal) mg/dL Urine Ketones 15 H (Negative) mg/dL Urine Blood Negative (Negative) Urine Nitrite Negative (Negative) Urine Bilirubin Negative (Negative) Urine Urobilinogen Normal (Normal) mg/dL Ur Leukocyte Esterase Negative (Negative) Ur Culture Indicated? NO (NO) Urine Osmolality (300-1090) mOsm/kg Urine Sodium mEq/L Digoxin (0.8-2.0) ng/mL 04/11/19 04/11/19 04/11/19 Range/Units 04:30 04:30 07:33 WBC 8.2 (4.3-11.1) K/mcL RBC 3.64 L (4.19-5.50) M/mcL Hgb 12.5 L (12.9-16.9) g/dL Hct 35.0 L (37.5-50.1) % MCV 96.2 (83.0-100.0) fL MCH 34.3 H (28.0-33.3) pg MCHC 35.7 H (31.6-35.5) g/dL RDW 12.2 (11.5-14.5) % Plt Count 161 (140-400) K/mcL MPV 8.8 L (9.4-12.4) fL Immature Gran % 0.6 (0-4) % Seg Neutrophils % 75.1 % Lymphocytes % 12.1 % Monocytes % 11.6 % Eosinophils % 0.4 % Basophils % 0.2 % Neutrophils # 6.2 (1.6-8.9) K/mcL Lymphocytes # 1.0 (0.6-4.6) K/mcL Monocytes # 1.0 (0.0-1.3) K/mcL Eosinophils # 0.0 (0.0-0.6) K/mcL Basophils # 0.0 (0.0-0.2) K/mcL PT (9.4-12.1) Seconds INR Sodium (136-145) mEq/L Potassium (3.5-5.1) mEq/L Chloride (98-107) mEq/L Carbon Dioxide (23-29) mEq/L BUN (8-23) mg/dL Creatinine (0.70-1.30) mg/dL Est GFR ( Amer) (> 60) Est GFR (Non-Af Amer) (> 60) BUN/Creatinine Ratio (6-26) Glucose (70-105) mg/dL POC Glucose (70-99) mg/dL Calculated Osmolality (280-300) Calcium (8.6-10.3) mg/dL Magnesium (1.6-2.6) mg/dL Total Bilirubin (0.3-1.0) mg/dL AST (13-39) Units/L ALT (7-52) Units/L Alkaline Phosphatase (34-104) Units/L Troponin I (< 0.04) ng/mL Serum Total Protein (6.4-8.9) g/dL Albumin (3.5-5.7) g/dL Globulin (2.4-3.5) g/dL Albumin/Globulin Ratio (1.1-2.2) TSH (0.340-5.600) mcIU/mL Random Cortisol mcg/dl Urine Color (Yellow) Urine Clarity (Clear) Urine pH (5.0-8.0) pH Units Ur Specific [place] (1.010-1.025) Urine Protein (Neg-Trace) mg/dL Urine Glucose (UA) (Normal) mg/dL Urine Ketones (Negative) mg/dL Urine Blood (Negative) Urine Nitrite (Negative) Urine Bilirubin (Negative) Urine Urobilinogen (Normal) mg/dL Ur Leukocyte Esterase (Negative) Ur Culture Indicated? (NO) Urine Osmolality 484 (300-1090) mOsm/kg Urine Sodium 125.2 mEq/L Digoxin (0.8-2.0) ng/mL 04/11/19 04/11/19 04/11/19 Range/Units 07:33 09:57 12:51 WBC (4.3-11.1) K/mcL RBC (4.19-5.50) M/mcL Hgb (12.9-16.9) g/dL Hct (37.5-50.1) % MCV (83.0-100.0) fL MCH (28.0-33.3) pg MCHC (31.6-35.5) g/dL RDW (11.5-14.5) % Plt Count (140-400) K/mcL MPV (9.4-12.4) fL Immature Gran % (0-4) % Seg Neutrophils % % Lymphocytes % % Monocytes % % Eosinophils % % Basophils % % Neutrophils # (1.6-8.9) K/mcL Lymphocytes # (0.6-4.6) K/mcL Monocytes # (0.0-1.3) K/mcL Eosinophils # (0.0-0.6) K/mcL Basophils # (0.0-0.2) K/mcL PT (9.4-12.1) Seconds INR Sodium 124 L 125 L (136-145) mEq/L Potassium 3.6 (3.5-5.1) mEq/L Chloride 90 L (98-107) mEq/L Carbon Dioxide 27 (23-29) mEq/L BUN 9 (8-23) mg/dL Creatinine 0.56 L (0.70-1.30) mg/dL Est GFR ( Amer) > 60 (> 60) Est GFR (Non-Af Amer) > 60 (> 60) BUN/Creatinine Ratio 16 (6-26) Glucose 91 (70-105) mg/dL POC Glucose 100 H (70-99) mg/dL Calculated Osmolality 256 L (280-300) Calcium 9.2 (8.6-10.3) mg/dL Magnesium 1.7 (1.6-2.6) mg/dL Total Bilirubin (0.3-1.0) mg/dL AST (13-39) Units/L ALT (7-52) Units/L Alkaline Phosphatase (34-104) Units/L Troponin I (< 0.04) ng/mL Serum Total Protein (6.4-8.9) g/dL Albumin (3.5-5.7) g/dL Globulin (2.4-3.5) g/dL Albumin/Globulin Ratio (1.1-2.2) TSH 0.986 (0.340-5.600) mcIU/mL Random Cortisol 9.0 mcg/dl Urine Color (Yellow) Urine Clarity (Clear) Urine pH (5.0-8.0) pH Units Ur Specific [place] (1.010-1.025) Urine Protein (Neg-Trace) mg/dL Urine Glucose (UA) (Normal) mg/dL Urine Ketones (Negative) mg/dL Urine Blood (Negative) Urine Nitrite (Negative) Urine Bilirubin (Negative) Urine Urobilinogen (Normal) mg/dL Ur Leukocyte Esterase (Negative) Ur Culture Indicated? (NO) Urine Osmolality (300-1090) mOsm/kg Urine Sodium mEq/L Digoxin (0.8-2.0) ng/mL 04/11/19 04/11/19 04/12/19 Range/Units 15:56 21:10 03:02 WBC 8.1 (4.3-11.1) K/mcL RBC 3.62 L (4.19-5.50) M/mcL Hgb 12.1 L (12.9-16.9) g/dL Hct 34.5 L (37.5-50.1) % MCV 95.3 (83.0-100.0) fL MCH 33.4 H (28.0-33.3) pg MCHC 35.1 (31.6-35.5) g/dL RDW 12.3 (11.5-14.5) % Plt Count 166 (140-400) K/mcL MPV 8.7 L (9.4-12.4) fL Immature Gran % (0-4) % Seg Neutrophils % % Lymphocytes % % Monocytes % % Eosinophils % % Basophils % % Neutrophils # (1.6-8.9) K/mcL Lymphocytes # (0.6-4.6) K/mcL Monocytes # (0.0-1.3) K/mcL Eosinophils # (0.0-0.6) K/mcL Basophils # (0.0-0.2) K/mcL PT (9.4-12.1) Seconds INR Sodium (136-145) mEq/L Potassium (3.5-5.1) mEq/L Chloride (98-107) mEq/L Carbon Dioxide (23-29) mEq/L BUN (8-23) mg/dL Creatinine (0.70-1.30) mg/dL Est GFR ( Amer) (> 60) Est GFR (Non-Af Amer) (> 60) BUN/Creatinine Ratio (6-26) Glucose (70-105) mg/dL POC Glucose 117 H 116 H (70-99) mg/dL Calculated Osmolality (280-300) Calcium (8.6-10.3) mg/dL Magnesium (1.6-2.6) mg/dL Total Bilirubin (0.3-1.0) mg/dL AST (13-39) Units/L ALT (7-52) Units/L Alkaline Phosphatase (34-104) Units/L Troponin I (< 0.04) ng/mL Serum Total Protein (6.4-8.9) g/dL Albumin (3.5-5.7) g/dL Globulin (2.4-3.5) g/dL Albumin/Globulin Ratio (1.1-2.2) TSH (0.340-5.600) mcIU/mL Random Cortisol mcg/dl Urine Color (Yellow) Urine Clarity (Clear) Urine pH (5.0-8.0) pH Units Ur Specific [place] (1.010-1.025) Urine Protein (Neg-Trace) mg/dL Urine Glucose (UA) (Normal) mg/dL Urine Ketones (Negative) mg/dL Urine Blood (Negative) Urine Nitrite (Negative) Urine Bilirubin (Negative) Urine Urobilinogen (Normal) mg/dL Ur Leukocyte Esterase (Negative) Ur Culture Indicated? (NO) Urine Osmolality (300-1090) mOsm/kg Urine Sodium mEq/L Digoxin (0.8-2.0) ng/mL 04/12/19 04/12/19 04/12/19 Range/Units 03:02 03:02 07:09 WBC (4.3-11.1) K/mcL RBC (4.19-5.50) M/mcL Hgb (12.9-16.9) g/dL Hct (37.5-50.1) % MCV (83.0-100.0) fL MCH (28.0-33.3) pg MCHC (31.6-35.5) g/dL RDW (11.5-14.5) % Plt Count (140-400) K/mcL MPV (9.4-12.4) fL Immature Gran % (0-4) % Seg Neutrophils % % Lymphocytes % % Monocytes % % Eosinophils % % Basophils % % Neutrophils # (1.6-8.9) K/mcL Lymphocytes # (0.6-4.6) K/mcL Monocytes # (0.0-1.3) K/mcL Eosinophils # (0.0-0.6) K/mcL Basophils # (0.0-0.2) K/mcL PT (9.4-12.1) Seconds INR Sodium 125 L (136-145) mEq/L Potassium 4.2 (3.5-5.1) mEq/L Chloride 92 L (98-107) mEq/L Carbon Dioxide 27 (23-29) mEq/L BUN 8 (8-23) mg/dL Creatinine 0.68 L (0.70-1.30) mg/dL Est GFR ( Amer) > 60 (> 60) Est GFR (Non-Af Amer) > 60 (> 60) BUN/Creatinine Ratio 12 (6-26) Glucose 111 H (70-105) mg/dL POC Glucose 116 H (70-99) mg/dL Calculated Osmolality 259 L (280-300) Calcium 9.4 (8.6-10.3) mg/dL Magnesium 1.9 (1.6-2.6) mg/dL Total Bilirubin (0.3-1.0) mg/dL AST (13-39) Units/L ALT (7-52) Units/L Alkaline Phosphatase (34-104) Units/L Troponin I (< 0.04) ng/mL Serum Total Protein (6.4-8.9) g/dL Albumin (3.5-5.7) g/dL Globulin (2.4-3.5) g/dL Albumin/Globulin Ratio (1.1-2.2) TSH (0.340-5.600) mcIU/mL Random Cortisol mcg/dl Urine Color (Yellow) Urine Clarity (Clear) Urine pH (5.0-8.0) pH Units Ur Specific [place] (1.010-1.025) Urine Protein (Neg-Trace) mg/dL Urine Glucose (UA) (Normal) mg/dL Urine Ketones (Negative) mg/dL Urine Blood (Negative) Urine Nitrite (Negative) Urine Bilirubin (Negative) Urine Urobilinogen (Normal) mg/dL Ur Leukocyte Esterase (Negative) Ur Culture Indicated? (NO) Urine Osmolality (300-1090) mOsm/kg Urine Sodium mEq/L Digoxin 0.7 L (0.8-2.0) ng/mL 04/12/19 04/12/19 04/12/19 Range/Units 11:00 16:12 20:32 WBC (4.3-11.1) K/mcL RBC (4.19-5.50) M/mcL Hgb (12.9-16.9) g/dL Hct (37.5-50.1) % MCV (83.0-100.0) fL MCH (28.0-33.3) pg MCHC (31.6-35.5) g/dL RDW (11.5-14.5) % Plt Count (140-400) K/mcL MPV (9.4-12.4) fL Immature Gran % (0-4) % Seg Neutrophils % % Lymphocytes % % Monocytes % % Eosinophils % % Basophils % % Neutrophils # (1.6-8.9) K/mcL Lymphocytes # (0.6-4.6) K/mcL Monocytes # (0.0-1.3) K/mcL Eosinophils # (0.0-0.6) K/mcL Basophils # (0.0-0.2) K/mcL PT (9.4-12.1) Seconds INR Sodium (136-145) mEq/L Potassium (3.5-5.1) mEq/L Chloride (98-107) mEq/L Carbon Dioxide (23-29) mEq/L BUN (8-23) mg/dL Creatinine (0.70-1.30) mg/dL Est GFR ( Amer) (> 60) Est GFR (Non-Af Amer) (> 60) BUN/Creatinine Ratio (6-26) Glucose (70-105) mg/dL POC Glucose 131 H 127 H 137 H (70-99) mg/dL Calculated Osmolality (280-300) Calcium (8.6-10.3) mg/dL Magnesium (1.6-2.6) mg/dL Total Bilirubin (0.3-1.0) mg/dL AST (13-39) Units/L ALT (7-52) Units/L Alkaline Phosphatase (34-104) Units/L Troponin I (< 0.04) ng/mL Serum Total Protein (6.4-8.9) g/dL Albumin (3.5-5.7) g/dL Globulin (2.4-3.5) g/dL Albumin/Globulin Ratio (1.1-2.2) TSH (0.340-5.600) mcIU/mL Random Cortisol mcg/dl Urine Color (Yellow) Urine Clarity (Clear) Urine pH (5.0-8.0) pH Units Ur Specific [place] (1.010-1.025) Urine Protein (Neg-Trace) mg/dL Urine Glucose (UA) (Normal) mg/dL Urine Ketones (Negative) mg/dL Urine Blood (Negative) Urine Nitrite (Negative) Urine Bilirubin (Negative) Urine Urobilinogen (Normal) mg/dL Ur Leukocyte Esterase (Negative) Ur Culture Indicated? (NO) Urine Osmolality (300-1090) mOsm/kg Urine Sodium mEq/L Digoxin (0.8-2.0) ng/mL 04/13/19 04/13/19 04/13/19 Range/Units 04:55 04:55 04:55 WBC 8.6 (4.3-11.1) K/mcL RBC 3.55 L (4.19-5.50) M/mcL Hgb 12.1 L (12.9-16.9) g/dL Hct 35.9 L (37.5-50.1) % MCV 101.1 H (83.0-100.0) fL MCH 34.1 H (28.0-33.3) pg MCHC 33.7 (31.6-35.5) g/dL RDW 12.4 (11.5-14.5) % Plt Count 147 (140-400) K/mcL MPV 8.7 L (9.4-12.4) fL Immature Gran % (0-4) % Seg Neutrophils % % Lymphocytes % % Monocytes % % Eosinophils % % Basophils % % Neutrophils # (1.6-8.9) K/mcL Lymphocytes # (0.6-4.6) K/mcL Monocytes # (0.0-1.3) K/mcL Eosinophils # (0.0-0.6) K/mcL Basophils # (0.0-0.2) K/mcL PT 14.8 H (9.4-12.1) Seconds INR 1.3 Sodium 127 L (136-145) mEq/L Potassium 4.2 (3.5-5.1) mEq/L Chloride 92 L (98-107) mEq/L Carbon Dioxide 27 (23-29) mEq/L BUN 9 (8-23) mg/dL Creatinine 0.68 L (0.70-1.30) mg/dL Est GFR ( Amer) > 60 (> 60) Est GFR (Non-Af Amer) > 60 (> 60) BUN/Creatinine Ratio 13 (6-26) Glucose 126 H (70-105) mg/dL POC Glucose (70-99) mg/dL Calculated Osmolality 264 L (280-300) Calcium 8.9 (8.6-10.3) mg/dL Magnesium 1.9 (1.6-2.6) mg/dL Total Bilirubin (0.3-1.0) mg/dL AST (13-39) Units/L ALT (7-52) Units/L Alkaline Phosphatase (34-104) Units/L Troponin I (< 0.04) ng/mL Serum Total Protein (6.4-8.9) g/dL Albumin (3.5-5.7) g/dL Globulin (2.4-3.5) g/dL Albumin/Globulin Ratio (1.1-2.2) TSH (0.340-5.600) mcIU/mL Random Cortisol mcg/dl Urine Color (Yellow) Urine Clarity (Clear) Urine pH (5.0-8.0) pH Units Ur Specific [place] (1.010-1.025) Urine Protein (Neg-Trace) mg/dL Urine Glucose (UA) (Normal) mg/dL Urine Ketones (Negative) mg/dL Urine Blood (Negative) Urine Nitrite (Negative) Urine Bilirubin (Negative) Urine Urobilinogen (Normal) mg/dL Ur Leukocyte Esterase (Negative) Ur Culture Indicated? (NO) Urine Osmolality (300-1090) mOsm/kg Urine Sodium mEq/L Digoxin (0.8-2.0) ng/mL 04/13/19 04/13/19 Range/Units 07:14 11:41 WBC (4.3-11.1) K/mcL RBC (4.19-5.50) M/mcL Hgb (12.9-16.9) g/dL Hct (37.5-50.1) % MCV (83.0-100.0) fL MCH (28.0-33.3) pg MCHC (31.6-35.5) g/dL RDW (11.5-14.5) % Plt Count (140-400) K/mcL MPV (9.4-12.4) fL Immature Gran % (0-4) % Seg Neutrophils % % Lymphocytes % % Monocytes % % Eosinophils % % Basophils % % Neutrophils # (1.6-8.9) K/mcL Lymphocytes # (0.6-4.6) K/mcL Monocytes # (0.0-1.3) K/mcL Eosinophils # (0.0-0.6) K/mcL Basophils # (0.0-0.2) K/mcL PT (9.4-12.1) Seconds INR Sodium (136-145) mEq/L Potassium (3.5-5.1) mEq/L Chloride (98-107) mEq/L Carbon Dioxide (23-29) mEq/L BUN (8-23) mg/dL Creatinine (0.70-1.30) mg/dL Est GFR ( Amer) (> 60) Est GFR (Non-Af Amer) (> 60) BUN/Creatinine Ratio (6-26) Glucose (70-105) mg/dL POC Glucose 117 H 115 H (70-99) mg/dL Calculated Osmolality (280-300) Calcium (8.6-10.3) mg/dL Magnesium (1.6-2.6) mg/dL Total Bilirubin (0.3-1.0) mg/dL AST (13-39) Units/L ALT (7-52) Units/L Alkaline Phosphatase (34-104) Units/L Troponin I (< 0.04) ng/mL Serum Total Protein (6.4-8.9) g/dL Albumin (3.5-5.7) g/dL Globulin (2.4-3.5) g/dL Albumin/Globulin Ratio (1.1-2.2) TSH (0.340-5.600) mcIU/mL Random Cortisol mcg/dl Urine Color (Yellow) Urine Clarity (Clear) Urine pH (5.0-8.0) pH Units Ur Specific [place] (1.010-1.025) Urine Protein (Neg-Trace) mg/dL Urine Glucose (UA) (Normal) mg/dL Urine Ketones (Negative) mg/dL Urine Blood (Negative) Urine Nitrite (Negative) Urine Bilirubin (Negative) Urine Urobilinogen (Normal) mg/dL Ur Leukocyte Esterase (Negative) Ur Culture Indicated? (NO) Urine Osmolality (300-1090) mOsm/kg Urine Sodium mEq/L Digoxin (0.8-2.0) ng/mL - Radiology Data Radiology results reviewed: Yes I reviewed the patient's radiology results.
== END 2019-04-16 18:26 | DRG 643 ==
LOC: 2NENU 22:48 → EMEROOARM 22:48 → SUATTDRO 04-11 01:50 → 2NENU 04-11 02:45
PROVIDERS: ADMIT Internal Medicine Nephrology; ATTEND Internal Medicine
PROC: ENDOEDS (2019-04-13 17:30)

== ENCOUNTER 2020-07-01 16:05 | Inpatient (IN) ==
[2020-07-01 18:33] LABS: Eosinophils % 0.2 %
[2020-07-01 18:35] LABS: Basophils % 0.2 %; Hematocrit 32.7 % (37.5-50.1); Immature Granulocytes % 0.4 % (0-4); Immature Platelets 3.2 % (1.1-6.1); Lymphocytes # 0.5 K/mcL (0.6-4.6); Lymphocytes % 11.1 %; Mean Corpuscular HGB Conc 30.6 g/dL (31.6-35.5); Mean Corpuscular Hemoglobin 31.2 pg (28.0-33.3); Mean Corpuscular Volume 101.9 fL (83.0-100.0); Mean Platelet Volume 10.2 fL (9.4-12.4); Monocytes # 0.7 K/mcL (0.0-1.3); Monocytes % 15.5 %; Neutrophils # 3.5 K/mcL (1.6-8.9); Red Blood Count 3.21 M/mcL (4.19-5.50); Red Cell Distribution Width 16.2 % (11.5-14.5); Segmented Neutrophils % 72.6 %; White Blood Count 4.8 K/mcL (4.3-11.1)
[2020-07-01 18:36] LABS: INR 2.1; Prothrombin Time 23.7 Seconds (9.4-12.1)
[2020-07-01 18:37] LABS: BUN/Creatinine Ratio 25 (6-26); Blood Urea Nitrogen 22 mg/dL (8-23); Calcium 9.2 mg/dL (8.6-10.3); Carbon Dioxide 31 mEq/L (23-29); Chloride 98 mEq/L (98-107); Glucose 104 mg/dL (70-105); Osmolality,Calculated 280 (280-300); Potassium 4.2 mEq/L (3.5-5.1); Sodium 133 mEq/L (136-145); eGFR For African Americans > 60 (> 60); eGFR For Non-African Americans > 60 (> 60)
[2020-07-01 18:39] LABS: Activated Partial Thrombo Time 38.6 Seconds (26.0-36.0)
[2020-07-01 18:41] LABS: Troponin I 1.06 ng/mL (< 0.04)
[2020-07-01 18:59] LABS: Platelet Count 94 K/mcL (140-400)
[2020-07-01 21:12] LABS: Adenovirus Not Detected (Not Detect); Bordetella Pertussis Not Detected (Not Detect); Chlamydophila pneumoniae Not Detected (Not Detect); Coronavirus 229E Not Detected (Not Detect); Coronavirus HKU1 Not Detected (Not Detect); Coronavirus NL63 Not Detected (Not Detect); Coronavirus OC43 Not Detected (Not Detect); Human Metapneumovirus Not Detected (Not Detect); Human Rhinovirus/Enterovirus DETECTED (Not Detect); Influenza A Subtype 2009 H1 Not Detected (Not Detect); Influenza B Not Detected (Not Detect); Mycoplasma pneumoniae Not Detected (Not Detect); Parainfluenza Virus 1 Not Detected (Not Detect); Parainfluenza Virus 2 Not Detected (Not Detect); Parainfluenza Virus 3 Not Detected (Not Detect); Parainfluenza Virus 4 Not Detected (Not Detect); Respiratory Syncytial Virus Not Detected (Not Detect); SARS-CoV-2 Not Detected (Not Detect)
[2020-07-01] MEDS ORDERED: Naloxone 0.4 MG/ML INJ IVP PRN (22:42)
[2020-07-02 08:28] LABS: Mean Corpuscular Hemoglobin 31.4 pg (28.0-33.3); Mean Corpuscular Volume 103.7 fL (83.0-100.0)
[2020-07-02 08:30] LABS: Hematocrit 33.4 % (37.5-50.1); Hemoglobin 10.1 g/dL (12.9-16.9); Immature Platelets 2.8 % (1.1-6.1); Mean Corpuscular HGB Conc 30.2 g/dL (31.6-35.5); Red Blood Count 3.22 M/mcL (4.19-5.50); Red Cell Distribution Width 16.1 % (11.5-14.5); White Blood Count 2.8 K/mcL (4.3-11.1)
[2020-07-02 08:42] LABS: Alanine Aminotransferase 12 Units/L (7-52); Albumin 3.5 g/dL (3.5-5.7); Albumin/Globulin Ratio 1.3 (1.1-2.2); Alkaline Phosphatase 131 Units/L (34-104); Aspartate Amino Transferase 15 Units/L (13-39); BUN/Creatinine Ratio 28 (6-26); Bilirubin,Total 1.1 mg/dL (0.3-1.0); Blood Urea Nitrogen 23 mg/dL (8-23); Calcium 9.3 mg/dL (8.6-10.3); Carbon Dioxide 34 mEq/L (23-29); Chloride 100 mEq/L (98-107); Globulin 2.6 g/dL (2.4-3.5); Glucose 96 mg/dL (70-105); Osmolality,Calculated 286 (280-300); Potassium 4.3 mEq/L (3.5-5.1); Sodium 136 mEq/L (136-145); Total Protein 6.1 g/dL (6.4-8.9); Troponin I 0.73 ng/mL (< 0.04); eGFR For African Americans > 60 (> 60); eGFR For Non-African Americans > 60 (> 60)
[2020-07-02] MEDS ORDERED: Apixaban 5 MG TABLET PO SCH (09:00)
[2020-07-02] MEDS: Furosemide 20 MG TABLET PO SCH (10:45)
[2020-07-02] MEDS: *HR* Digoxin 0.125 MG TABLET PO SCH (10:45)
[2020-07-02] MEDS: carvediloL 25 MG TABLET PO SCH ×2 (10:45→21:00)
[2020-07-02] MEDS: Gabapentin 300 MG CAPSULE PO SCH ×3 (10:45→21:00)
[2020-07-02] MEDS: Ipratropium/Albuterol Neb 3 ML IH SCH ×4 (11:07→20:30)
[2020-07-02] MEDS ORDERED: Perflutren Lipid Microsphere 1.3 ML in 0.9 % Sodium Chloride 8.7 ML IVP PRN (13:06)
[2020-07-02] MEDS ORDERED: Furosemide 20 MG/2 ML VIAL IVP ONE (14:42)
[2020-07-02 16:33] LABS: Basophils % 0.3 %; Hemoglobin 10.3 g/dL (12.9-16.9); Red Cell Distribution Width 15.9 % (11.5-14.5)
[2020-07-02 16:35] LABS: Eosinophils % 0.9 %; Hematocrit 33.8 % (37.5-50.1); Immature Granulocytes % 0.6 % (0-4); Lymphocytes # 0.8 K/mcL (0.6-4.6); Lymphocytes % 21.6 %; Mean Corpuscular HGB Conc 30.5 g/dL (31.6-35.5); Mean Corpuscular Hemoglobin 31.5 pg (28.0-33.3); Mean Corpuscular Volume 103.4 fL (83.0-100.0); Mean Platelet Volume 9.4 fL (9.4-12.4); Monocytes # 0.5 K/mcL (0.0-1.3); Monocytes % 14.2 %; Neutrophils # 2.2 K/mcL (1.6-8.9); Red Blood Count 3.27 M/mcL (4.19-5.50); Segmented Neutrophils % 62.4 %; White Blood Count 3.5 K/mcL (4.3-11.1)
[2020-07-02 16:38] LABS: Platelet Count 95 K/mcL (140-400)
[2020-07-02] MEDS: Aspirin 81 MG TAB.CHEW PO SCH (16:46)
[2020-07-02] MEDS: Magnesium Oxide 400 MG TABLET PO SCH ×2 (16:46→21:00)
[2020-07-02] MEDS: Isosorbide MONOnitrate (24 HR) 30 MG TAB.ER.24H PO SCH (16:46)
[2020-07-02] MEDS: Cholecalciferol (D-3) 1,000 UNIT (25MCG) TABLET PO SCH (16:46)
[2020-07-02] MEDS: GuaiFENesin/Dextromethorphan TABLET PO SCH ×2 (16:48→21:00)
[2020-07-03] MEDS: Ipratropium/Albuterol Neb 3 ML IH SCH ×5 (00:27→15:27)
[2020-07-03 04:55] LABS: Basophils % 0.2 %; Immature Granulocytes % 0.2 % (0-4); Mean Corpuscular Volume 103.7 fL (83.0-100.0)
[2020-07-03 04:57] LABS: Eosinophils # 0.1 K/mcL (0.0-0.6); Eosinophils % 1.2 %; Hemoglobin 8.7 g/dL (12.9-16.9); Immature Platelets 2.4 % (1.1-6.1); Lymphocytes # 0.8 K/mcL (0.6-4.6); Lymphocytes % 19.6 %; Mean Corpuscular HGB Conc 31.1 g/dL (31.6-35.5); Mean Corpuscular Hemoglobin 32.2 pg (28.0-33.3); Monocytes # 0.5 K/mcL (0.0-1.3); Monocytes % 13.2 %; Neutrophils # 2.6 K/mcL (1.6-8.9); Red Cell Distribution Width 16.1 % (11.5-14.5); Segmented Neutrophils % 65.6 %
[2020-07-03 05:05] LABS: Platelet Count 93 K/mcL (140-400)
[2020-07-03 05:10] LABS: BUN/Creatinine Ratio 33 (6-26); Blood Urea Nitrogen 25 mg/dL (8-23); Calcium 8.5 mg/dL (8.6-10.3); Carbon Dioxide 32 mEq/L (23-29); Chloride 100 mEq/L (98-107); Glucose 89 mg/dL (70-105); Magnesium 1.8 mg/dL (1.6-2.6); Osmolality,Calculated 284 (280-300); Phosphorous 3.1 mg/dL (2.7-4.5); Potassium 4.1 mEq/L (3.5-5.1); Sodium 135 mEq/L (136-145); eGFR For African Americans > 60 (> 60); eGFR For Non-African Americans > 60 (> 60)
[2020-07-03 08:43] LABS: Hematocrit 29.8 % (37.5-50.1); Hemoglobin 9.1 g/dL (12.9-16.9)
[2020-07-03] MEDS: Gabapentin 300 MG CAPSULE PO SCH (09:44)
[2020-07-03] MEDS: carvediloL 25 MG TABLET PO SCH (09:44)
[2020-07-03] MEDS: Aspirin 81 MG TAB.CHEW PO SCH (09:45)
[2020-07-03] MEDS: Isosorbide MONOnitrate (24 HR) 30 MG TAB.ER.24H PO SCH ×2 (09:46→09:47)
[2020-07-03] MEDS: Furosemide 20 MG TABLET PO SCH (09:48)
[2020-07-03] MEDS: *HR* Digoxin 0.125 MG TABLET PO SCH (09:48)
[2020-07-03] MEDS: Magnesium Oxide 400 MG TABLET PO SCH (09:49)
[2020-07-03] MEDS: Cholecalciferol (D-3) 1,000 UNIT (25MCG) TABLET PO SCH (09:50)
[2020-07-03] MEDS: GuaiFENesin/Dextromethorphan TABLET PO SCH (10:44)
[2020-07-03 11:18] VITALS: BP 128/64
[2020-07-03] MEDS ORDERED: Apixaban 5 MG TABLET PO SCH (11:30)
== END 2020-07-03 16:13 | disposition other institution (70) | DRG 189 ==
LOC: 3BNU 16:05 → EMEROOARM 16:05 → SUATTDRO 21:25 → 3BNU 22:05
PROVIDERS: ADMIT Internal Medicine; ATTEND Internal Medicine

== ENCOUNTER 2020-08-29 13:44 | Inpatient (IN) ==
[2020-08-29 14:36] LABS: Basophils % 0.3 %; Eosinophils % 0.3 %
[2020-08-29 14:38] LABS: Hematocrit 30.3 % (37.5-50.1); Hemoglobin 9.4 g/dL (12.9-16.9); Immature Granulocytes % 0.3 % (0-4); Immature Platelets 1.8 % (1.1-6.1); Lymphocytes # 0.7 K/mcL (0.6-4.6); Lymphocytes % 24.4 %; Mean Corpuscular Hemoglobin 29.8 pg (28.0-33.3); Mean Corpuscular Volume 96.2 fL (83.0-100.0); Mean Platelet Volume 9.7 fL (9.4-12.4); Monocytes # 0.3 K/mcL (0.0-1.3); Neutrophils # 1.9 K/mcL (1.6-8.9); Red Blood Count 3.15 M/mcL (4.19-5.50); Red Cell Distribution Width 15.7 % (11.5-14.5); Segmented Neutrophils % 64.7 %
[2020-08-29 14:41] LABS: Platelet Count 96 K/mcL (140-400)
[2020-08-29 14:57] LABS: Alanine Aminotransferase 12 Units/L (7-52); Albumin 3.6 g/dL (3.5-5.7); Albumin/Globulin Ratio 1.3 (1.1-2.2); Alkaline Phosphatase 146 Units/L (34-104); Aspartate Amino Transferase 18 Units/L (13-39); BUN/Creatinine Ratio 23 (6-26); Bilirubin,Direct 0.3 mg/dL (0.0-0.2); Bilirubin,Indirect 0.4 mg/dL (0.0-1.0); Bilirubin,Total 0.7 mg/dL (0.3-1.0); Blood Urea Nitrogen 20 mg/dL (8-23); Calcium 8.6 mg/dL (8.6-10.3); Carbon Dioxide 27 mEq/L (23-29); Chloride 100 mEq/L (98-107); Digoxin 1.3 ng/mL (0.8-2.0); Globulin 2.7 g/dL (2.4-3.5); Glucose 139 mg/dL (70-105); Lipase 101 Units/L (11-82); Osmolality,Calculated 281 (280-300); Potassium 4.4 mEq/L (3.5-5.1); Sodium 133 mEq/L (136-145); Total Protein 6.3 g/dL (6.4-8.9); eGFR For African Americans > 60 (> 60); eGFR For Non-African Americans > 60 (> 60)
[2020-08-29 16:09] LABS: Bacteria,Urine Few per hpf (None-Few); Bilirubin,Urine Negative (Negative); Blood,Urine Small (Negative); Clarity,Urine Clear (Clear); Color,Urine Light-Yellow (Yellow); Glucose,Urine (UA) Normal (Normal); Hyaline Casts,Urine Few per lpf (None Seen); Ketones,Urine Negative (Negative); Leukocyte Esterase,Urine Small (Negative); Mucus,Urine Few per lpf (None-Few); Nitrite,Urine Negative (Negative); PH,Urine 6.5 pH Units (5.0-8.0); Protein,Urine Trace mg/dL (Neg-Trace); RBC,Urine 15-30 per hpf (0-3); Specific Gravity,Urine 1.014 (1.010-1.025); Squamous Epithelial Cell,Urine Few per hpf (None-Few); Urobilinogen,Urine Normal (Normal); WBC,Urine 15-30 per hpf (0-3)
[2020-08-29] MEDS ORDERED: *HR* HYDROcodone/Acet 5/325 mg TABLET PO PRN (16:41)
[2020-08-29] MEDS ORDERED: Ondansetron 4 MG/2 ML VIAL IVP PRN ×2 (16:41→18:26)
[2020-08-29] MEDS ORDERED: Naloxone 0.4 MG/ML INJ IVP PRN ×2 (16:41→18:26)
[2020-08-29 17:08] LABS: Troponin I < 0.03 ng/mL (< 0.04)
[2020-08-29] MEDS ORDERED: 0.9 % Sodium Chloride 1,000 ML IVC SCH (18:30)
[2020-08-29] MEDS ORDERED: Apixaban 5 MG TABLET PO SCH (21:00)
[2020-08-29] MEDS ORDERED: NON-FORMULARY MEDICATION 1 EACH EACH (Magnesium 250 MG) PO SCH (21:00)
[2020-08-29] MEDS ORDERED: CARVEDILOL 25 MG PO SCH (21:00)
[2020-08-29] MEDS: Ertapenem 1,000 MG in 0.9 % Sodium Chloride Mini Bag 100 ML IVPB SCH (21:23)
[2020-08-30] MEDS ORDERED: Piperacillin/Tazobactam 3.375 GM in 0.9 % Sodium Chloride Mini Bag 100 ML IVPB SCH
[2020-08-30] MEDS: Gabapentin 300 MG CAPSULE PO SCH ×4 (00:25→20:02)
[2020-08-30] MEDS: Apixaban 5 MG TABLET PO SCH ×3 (00:25→20:02)
[2020-08-30 01:09] LABS: Hematocrit 28.7 % (37.5-50.1); Hemoglobin 9.2 g/dL (12.9-16.9); Mean Corpuscular HGB Conc 32.1 g/dL (31.6-35.5); Mean Corpuscular Hemoglobin 31.1 pg (28.0-33.3); Red Blood Count 2.96 M/mcL (4.19-5.50)
[2020-08-30 01:11] LABS: Basophils % 0.4 %; Eosinophils % 0.4 %; Immature Granulocytes % 0.4 % (0-4); Immature Platelets 1.8 % (1.1-6.1); Lymphocytes # 0.8 K/mcL (0.6-4.6); Lymphocytes % 27.2 %; Monocytes # 0.4 K/mcL (0.0-1.3); Monocytes % 12.7 %; Platelet Count 102 K/mcL (140-400); Red Cell Distribution Width 15.7 % (11.5-14.5); Segmented Neutrophils % 58.9 %; White Blood Count 2.8 K/mcL (4.3-11.1)
[2020-08-30 01:14] LABS: Neutrophils # 1.7 K/mcL (1.6-8.9)
[2020-08-30 01:30] LABS: BUN/Creatinine Ratio 23 (6-26); Blood Urea Nitrogen 16 mg/dL (8-23); Calcium 8.4 mg/dL (8.6-10.3); Carbon Dioxide 25 mEq/L (23-29); Chloride 102 mEq/L (98-107); Glucose 128 mg/dL (70-105); Magnesium 1.4 mg/dL (1.6-2.6); Osmolality,Calculated 277 (280-300); Phosphorous 1.9 mg/dL (2.7-4.5); Potassium 4.2 mEq/L (3.5-5.1); Sodium 132 mEq/L (136-145); eGFR For African Americans > 60 (> 60); eGFR For Non-African Americans > 60 (> 60)
[2020-08-30] MEDS ORDERED: carvediloL 6.25 MG TABLET PO SCH (08:00)
[2020-08-30] MEDS: carvediloL 25 MG TABLET PO SCH ×2 (08:19→18:05)
[2020-08-30] MEDS: Aspirin 81 MG TAB.CHEW PO SCH (08:20)
[2020-08-30] MEDS: Isosorbide MONOnitrate (24 HR) 30 MG TAB.ER.24H PO SCH (08:20)
[2020-08-30] MEDS: *HR* Digoxin 0.125 MG TABLET PO SCH (08:20)
[2020-08-30] MEDS: Cholecalciferol (D-3) 1,000 UNIT (25MCG) TABLET PO SCH (08:20)
[2020-08-30] MEDS ORDERED: Aspirin 81 MG TAB.CHEW PO SCH (09:00)
[2020-08-30] MEDS ORDERED: *HR* Digoxin 0.125 MG TABLET PO SCH (09:00)
[2020-08-30] MEDS ORDERED: NON-FORMULARY MEDICATION 1 EACH EACH (Omeprazole [Prilosec] 40 MG) PO SCH (09:00)
[2020-08-30] MEDS ORDERED: Isosorbide MONOnitrate (24 HR) 30 MG TAB.ER.24H PO SCH (09:00)
[2020-08-30] MEDS: Ertapenem 1,000 MG in 0.9 % Sodium Chloride Mini Bag 100 ML IVPB SCH (18:06)
[2020-08-31 05:07] LABS: Basophils % 0.3 %; Eosinophils % 0.3 %; Hematocrit 31.1 % (37.5-50.1); Hemoglobin 9.9 g/dL (12.9-16.9); Immature Granulocytes % 0.7 % (0-4); Lymphocytes # 0.8 K/mcL (0.6-4.6); Lymphocytes % 24.6 %; Mean Corpuscular HGB Conc 31.8 g/dL (31.6-35.5); Mean Corpuscular Hemoglobin 30.5 pg (28.0-33.3); Mean Corpuscular Volume 95.7 fL (83.0-100.0); Mean Platelet Volume 9.6 fL (9.4-12.4); Monocytes # 0.3 K/mcL (0.0-1.3); Monocytes % 9.8 %; Platelet Count 111 K/mcL (140-400); Red Blood Count 3.25 M/mcL (4.19-5.50); Red Cell Distribution Width 15.9 % (11.5-14.5); Segmented Neutrophils % 64.3 %; White Blood Count 3.1 K/mcL (4.3-11.1)
[2020-08-31 07:32] LABS: BUN/Creatinine Ratio 19 (6-26); Blood Urea Nitrogen 11 mg/dL (8-23); Calcium 8.7 mg/dL (8.6-10.3); Carbon Dioxide 26 mEq/L (23-29); Chloride 100 mEq/L (98-107); Glucose 84 mg/dL (70-105); Magnesium 1.5 mg/dL (1.6-2.6); Osmolality,Calculated 273 (280-300); Phosphorous 3.2 mg/dL (2.7-4.5); Potassium 4.3 mEq/L (3.5-5.1); Sodium 132 mEq/L (136-145); eGFR For African Americans > 60 (> 60); eGFR For Non-African Americans > 60 (> 60)
[2020-08-31 08:10] LABS: Fibrinogen 264 mg/dL (169-393)
[2020-08-31 08:15] LABS: D-Dimer < 215 ng/mLFEU (0-500)
[2020-08-31] MEDS: Aspirin 81 MG TAB.CHEW PO SCH (08:51)
[2020-08-31] MEDS: carvediloL 25 MG TABLET PO SCH ×2 (08:51→17:13)
[2020-08-31] MEDS: Gabapentin 300 MG CAPSULE PO SCH ×3 (08:51→19:50)
[2020-08-31] MEDS: Cholecalciferol (D-3) 1,000 UNIT (25MCG) TABLET PO SCH (08:52)
[2020-08-31] MEDS: Apixaban 5 MG TABLET PO SCH ×2 (08:52→19:50)
[2020-08-31] MEDS: *HR* Digoxin 0.125 MG TABLET PO SCH (08:52)
[2020-08-31] MEDS: Isosorbide MONOnitrate (24 HR) 30 MG TAB.ER.24H PO SCH (08:52)
[2020-08-31] MEDS ORDERED: Magnesium Sulfate 1 GM/102 ML PIGGYBACK IVPB ONE (10:15)
[2020-08-31] MEDS: Ertapenem 1,000 MG in 0.9 % Sodium Chloride Mini Bag 100 ML IVPB SCH (17:37)
[2020-08-31 23:22] VITALS: BP 127/59
== END 2020-09-01 01:51 | disposition other institution (70) | DRG 178 ==
LOC: 2NENU 13:44 → EMEROOARM 13:44 → SUATTDRO 21:17 → 2NENU 23:20
PROVIDERS: ADMIT Internal Medicine; ATTEND Internal Medicine

== ENCOUNTER 2021-08-18 14:13 | Inpatient (IN) ==
[2021-08-18 15:15] LABS: Basophils % 0.2 %; Eosinophils % 0.5 %; Hematocrit 35.5 % (37.5-50.1); Hemoglobin 12.4 g/dL (12.9-16.9); Lymphocytes # 0.6 K/mcL (0.6-4.6); Lymphocytes % 10.7 %; Mean Corpuscular HGB Conc 34.9 g/dL (31.6-35.5); Mean Corpuscular Hemoglobin 35.4 pg (28.0-33.3); Mean Corpuscular Volume 101.4 fL (83.0-100.0); Mean Platelet Volume 8.7 fL (9.4-12.4); Monocytes # 0.4 K/mcL (0.0-1.3); Monocytes % 7.5 %; Neutrophils # 4.6 K/mcL (1.6-8.9); Platelet Count 143 K/mcL (140-400); Red Cell Distribution Width 12.7 % (11.5-14.5); Segmented Neutrophils % 80.1 %; White Blood Count 5.7 K/mcL (4.3-11.1)
[2021-08-18 15:30] LABS: Bilirubin,Urine Negative (Negative); Blood,Urine Negative (Negative); Clarity,Urine Clear (Clear); Color,Urine Yellow (Yellow); Glucose,Urine (UA) Normal (Normal); Ketones,Urine 10 mg/dL (Negative); Leukocyte Esterase,Urine Negative (Negative); Nitrite,Urine Negative (Negative); PH,Urine 7.5 pH Units (5.0-8.0); Protein,Urine Trace mg/dL (Neg-Trace); Specific Gravity,Urine 1.024 (1.010-1.025)
[2021-08-18 16:15] LABS: Alanine Aminotransferase 11 Units/L (7-52); Albumin/Globulin Ratio 1.4 (1.1-2.2); Alkaline Phosphatase 137 Units/L (34-104); Aspartate Amino Transferase 16 Units/L (13-39); BUN/Creatinine Ratio 21 (6-26); Bilirubin,Total 1.7 mg/dL (0.3-1.0); Blood Urea Nitrogen 12 mg/dL (8-23); Calcium 8.9 mg/dL (8.6-10.3); Carbon Dioxide 27 mEq/L (23-29); Chloride 84 mEq/L (98-107); Globulin 2.9 g/dL (2.4-3.5); Glucose 88 mg/dL (70-105); Osmolality,Calculated 243 (280-300); Potassium 4.7 mEq/L (3.5-5.1); Sodium 117 mEq/L (136-145); Total Protein 6.9 g/dL (6.4-8.9); Troponin I < 0.03 ng/mL (< 0.04); eGFR For African Americans > 60 (> 60); eGFR For Non-African Americans > 60 (> 60)
[2021-08-18 16:34] LABS: Influenza A PCR Negative (Negative); Influenza B PCR Negative (Negative); Resp. Syncytial Virus PCR Negative (Negative)
[2021-08-18 16:50] LABS: SARS-CoV-2 by PCR (In House) Negative (Negative)
[2021-08-18] MEDS ORDERED: 0.9 % Sodium Chloride 500 ML IVC ONE (17:44)
[2021-08-18] MEDS ORDERED: Ondansetron 4 MG/2 ML VIAL IVP PRN (19:20)
[2021-08-18] MEDS ORDERED: Naloxone 0.4 MG/ML INJ IVP PRN (19:20)
[2021-08-18 21:09] LABS: BUN/Creatinine Ratio 22 (6-26); Blood Urea Nitrogen 11 mg/dL (8-23); Carbon Dioxide 26 mEq/L (23-29); Chloride 85 mEq/L (98-107); Glucose 79 mg/dL (70-105); Osmolality,Calculated 242 (280-300); Potassium 4.7 mEq/L (3.5-5.1); Sodium 117 mEq/L (136-145); eGFR For African Americans > 60 (> 60); eGFR For Non-African Americans > 60 (> 60)
[2021-08-18] MEDS ORDERED: 0.9 % Sodium Chloride 1,000 ML IVC SCH (21:15)
[2021-08-18 21:31] LABS: Potassium,Urine 35.7 mEq/L; Sodium, Urine 157.8 mEq/L
[2021-08-18] MEDS: Gabapentin 300 MG CAPSULE PO SCH (22:01)
[2021-08-18] MEDS: Apixaban 5 MG TABLET PO SCH (22:01)
[2021-08-19 01:07] LABS: Basophils % 0.3 %; Eosinophils % 0.4 %; Hematocrit 30.9 % (37.5-50.1); Immature Granulocytes % 0.7 % (0-4); Lymphocytes # 0.8 K/mcL (0.6-4.6); Lymphocytes % 10.6 %; Mean Corpuscular HGB Conc 35.6 g/dL (31.6-35.5); Mean Corpuscular Hemoglobin 35.5 pg (28.0-33.3); Mean Corpuscular Volume 99.7 fL (83.0-100.0); Mean Platelet Volume 8.2 fL (9.4-12.4); Monocytes # 0.7 K/mcL (0.0-1.3); Monocytes % 9.5 %; Neutrophils # 5.6 K/mcL (1.6-8.9); Platelet Count 127 K/mcL (140-400); Red Cell Distribution Width 12.7 % (11.5-14.5); Segmented Neutrophils % 78.5 %; White Blood Count 7.1 K/mcL (4.3-11.1)
[2021-08-19 01:14] LABS: INR 1.7; Prothrombin Time 18.8 Seconds (9.4-12.1)
[2021-08-19 01:30] LABS: Chol/HDL Ratio 1.6 (0-4.9); Magnesium 1.6 mg/dL (1.6-2.6); Phosphorous 2.1 mg/dL (2.7-4.5)
[2021-08-19 01:34] LABS: BUN/Creatinine Ratio 20 (6-26); Blood Urea Nitrogen 10 mg/dL (8-23); Calcium 8.8 mg/dL (8.6-10.3); Carbon Dioxide 25 mEq/L (23-29); Chloride 85 mEq/L (98-107); Glucose 85 mg/dL (70-105); Osmolality,Calculated 238 (280-300); Potassium 4.5 mEq/L (3.5-5.1); Sodium 115 mEq/L (136-145); eGFR For African Americans > 60 (> 60); eGFR For Non-African Americans > 60 (> 60)
[2021-08-19 01:41] LABS: Thyroid Stimulating Hormone 0.87 mcIU/mL (0.340-5.600)
[2021-08-19 06:47] LABS: BUN/Creatinine Ratio 19 (6-26); Blood Urea Nitrogen 10 mg/dL (8-23); Calcium 8.9 mg/dL (8.6-10.3); Carbon Dioxide 26 mEq/L (23-29); Chloride 85 mEq/L (98-107); Glucose 76 mg/dL (70-105); Osmolality,Calculated 242 (280-300); Potassium 4.6 mEq/L (3.5-5.1); Sodium 117 mEq/L (136-145); eGFR For African Americans > 60 (> 60); eGFR For Non-African Americans > 60 (> 60)
[2021-08-19] MEDS: Gabapentin 300 MG CAPSULE PO SCH ×3 (08:28→21:24)
[2021-08-19] MEDS: Aspirin 81 MG TAB.CHEW PO SCH (08:28)
[2021-08-19] MEDS: Apixaban 5 MG TABLET PO SCH ×2 (08:29→21:24)
[2021-08-19] MEDS: Magnesium Oxide 400 MG TABLET PO SCH ×3 (08:29→21:23)
[2021-08-19] MEDS: *HR* Digoxin 0.125 MG TABLET PO SCH (08:29)
[2021-08-19] MEDS: Cholecalciferol (D-3) 1,000 UNIT (25MCG) TABLET PO SCH (08:29)
[2021-08-19 09:45] LABS: BUN/Creatinine Ratio 19 (6-26); Blood Urea Nitrogen 10 mg/dL (8-23); Calcium 9.1 mg/dL (8.6-10.3); Carbon Dioxide 25 mEq/L (23-29); Chloride 84 mEq/L (98-107); Glucose 90 mg/dL (70-105); Osmolality,Calculated 241 (280-300); Potassium 4.6 mEq/L (3.5-5.1); Sodium 116 mEq/L (136-145); eGFR For African Americans > 60 (> 60); eGFR For Non-African Americans > 60 (> 60)
[2021-08-19 13:16] LABS: BUN/Creatinine Ratio 20 (6-26); Blood Urea Nitrogen 10 mg/dL (8-23); Carbon Dioxide 26 mEq/L (23-29); Chloride 83 mEq/L (98-107); Glucose 103 mg/dL (70-105); Osmolality,Calculated 235 (280-300); Potassium 4.7 mEq/L (3.5-5.1); Sodium 113 mEq/L (136-145); eGFR For African Americans > 60 (> 60); eGFR For Non-African Americans > 60 (> 60)
[2021-08-19 18:08] LABS: BUN/Creatinine Ratio 21 (6-26); Blood Urea Nitrogen 10 mg/dL (8-23); Calcium 8.7 mg/dL (8.6-10.3); Carbon Dioxide 26 mEq/L (23-29); Chloride 82 mEq/L (98-107); Glucose 90 mg/dL (70-105); Osmolality,Calculated 233 (280-300); Potassium 4.7 mEq/L (3.5-5.1); Sodium 112 mEq/L (136-145); eGFR For African Americans > 60 (> 60); eGFR For Non-African Americans > 60 (> 60)
[2021-08-19] MEDS ORDERED: 0.9 % Sodium Chloride 1,000 ML IVC SCH (23:30)
[2021-08-20 06:44] LABS: Basophils % 0.2 %; Eosinophils % 0.5 %; Hematocrit 30.4 % (37.5-50.1); Hemoglobin 10.8 g/dL (12.9-16.9); Immature Granulocytes % 1.2 % (0-4); Lymphocytes # 0.6 K/mcL (0.6-4.6); Lymphocytes % 9.6 %; Mean Corpuscular HGB Conc 35.5 g/dL (31.6-35.5); Mean Corpuscular Volume 98.4 fL (83.0-100.0); Mean Platelet Volume 8.6 fL (9.4-12.4); Monocytes # 0.8 K/mcL (0.0-1.3); Monocytes % 12.4 %; Platelet Count 132 K/mcL (140-400); Red Blood Count 3.09 M/mcL (4.19-5.50); Red Cell Distribution Width 12.5 % (11.5-14.5); Segmented Neutrophils % 76.1 %; White Blood Count 6.6 K/mcL (4.3-11.1)
[2021-08-20 07:43] LABS: BUN/Creatinine Ratio 24 (6-26); Blood Urea Nitrogen 11 mg/dL (8-23); Calcium 8.9 mg/dL (8.6-10.3); Carbon Dioxide 25 mEq/L (23-29); Chloride 84 mEq/L (98-107); Glucose 96 mg/dL (70-105); Magnesium 1.6 mg/dL (1.6-2.6); Osmolality,Calculated 241 (280-300); Phosphorous 2.6 mg/dL (2.7-4.5); Potassium 4.5 mEq/L (3.5-5.1); Sodium 116 mEq/L (136-145); eGFR For African Americans > 60 (> 60); eGFR For Non-African Americans > 60 (> 60)
[2021-08-20] MEDS: *HR* Digoxin 0.125 MG TABLET PO SCH (08:23)
[2021-08-20] MEDS: Magnesium Oxide 400 MG TABLET PO SCH ×3 (08:23→19:53)
[2021-08-20] MEDS: Aspirin 81 MG TAB.CHEW PO SCH (08:23)
[2021-08-20] MEDS: Gabapentin 300 MG CAPSULE PO SCH ×3 (08:23→19:50)
[2021-08-20] MEDS: Apixaban 5 MG TABLET PO SCH ×2 (08:23→20:11)
[2021-08-20] MEDS: Cholecalciferol (D-3) 1,000 UNIT (25MCG) TABLET PO SCH (08:23)
[2021-08-20] MEDS ORDERED: Isovue-370 500 ML BOTTLE IVP ONE (15:21)
[2021-08-20] MEDS: Acetaminophen 325 MG TABLET PO PRN (19:50)
[2021-08-20] MEDS ORDERED: 0.9 % Sodium Chloride 1,000 ML IVC SCH (20:00)
[2021-08-20] MEDS: Furosemide 20 MG/2 ML VIAL IVP SCH (21:38)
[2021-08-21 07:00] LABS: Basophils % 0.3 %; Eosinophils % 0.4 %; Hematocrit 31.6 % (37.5-50.1); Hemoglobin 11.3 g/dL (12.9-16.9); Immature Granulocytes % 0.8 % (0-4); Lymphocytes # 0.7 K/mcL (0.6-4.6); Lymphocytes % 9.8 %; Mean Corpuscular HGB Conc 35.8 g/dL (31.6-35.5); Mean Corpuscular Hemoglobin 35.5 pg (28.0-33.3); Mean Corpuscular Volume 99.4 fL (83.0-100.0); Mean Platelet Volume 8.2 fL (9.4-12.4); Monocytes # 0.9 K/mcL (0.0-1.3); Monocytes % 12.3 %; Neutrophils # 5.6 K/mcL (1.6-8.9); Platelet Count 131 K/mcL (140-400); Red Blood Count 3.18 M/mcL (4.19-5.50); Segmented Neutrophils % 76.4 %; White Blood Count 7.3 K/mcL (4.3-11.1)
[2021-08-21 07:39] LABS: BUN/Creatinine Ratio 26 (6-26); Blood Urea Nitrogen 14 mg/dL (8-23); Carbon Dioxide 29 mEq/L (23-29); Chloride 86 mEq/L (98-107); Glucose 91 mg/dL (70-105); Magnesium 1.7 mg/dL (1.6-2.6); Osmolality,Calculated 248 (280-300); Potassium 4.5 mEq/L (3.5-5.1); Sodium 119 mEq/L (136-145); eGFR For African Americans > 60 (> 60); eGFR For Non-African Americans > 60 (> 60)
[2021-08-21] MEDS: *HR* Digoxin 0.125 MG TABLET PO SCH (08:46)
[2021-08-21] MEDS: Cholecalciferol (D-3) 1,000 UNIT (25MCG) TABLET PO SCH (08:46)
[2021-08-21] MEDS: Gabapentin 300 MG CAPSULE PO SCH ×3 (08:46→21:46)
[2021-08-21] MEDS: Aspirin 81 MG TAB.CHEW PO SCH (08:46)
[2021-08-21] MEDS: Benzonatate 100 MG CAPSULE PO PRN ×2 (08:46→21:46)
[2021-08-21] MEDS: Furosemide 20 MG/2 ML VIAL IVP SCH (08:46)
[2021-08-21] MEDS: Magnesium Oxide 400 MG TABLET PO SCH ×3 (08:46→21:45)
[2021-08-21] MEDS: 0.9 % Sodium Chloride 1,000 ML IVC SCH (09:06)
[2021-08-21] MEDS ORDERED: Furosemide 40 MG/4 ML VIAL IVP SCH (21:00)
[2021-08-21] MEDS: Acetaminophen 325 MG TABLET PO PRN (21:44)
[2021-08-22] MEDS: 0.9 % Sodium Chloride 1,000 ML IVC SCH ×2 (01:16→17:23)
[2021-08-22 06:58] LABS: Basophils % 0.1 %; Eosinophils # 0.1 K/mcL (0.0-0.6); Eosinophils % 0.7 %; Hematocrit 29.6 % (37.5-50.1); Hemoglobin 10.7 g/dL (12.9-16.9); Immature Granulocytes % 1.2 % (0-4); Lymphocytes # 0.8 K/mcL (0.6-4.6); Lymphocytes % 11.4 %; Mean Corpuscular HGB Conc 36.1 g/dL (31.6-35.5); Mean Corpuscular Hemoglobin 36.5 pg (28.0-33.3); Mean Platelet Volume 8.3 fL (9.4-12.4); Monocytes # 0.8 K/mcL (0.0-1.3); Monocytes % 11.4 %; Neutrophils # 5.2 K/mcL (1.6-8.9); Platelet Count 132 K/mcL (140-400); Red Blood Count 2.93 M/mcL (4.19-5.50); Red Cell Distribution Width 13.2 % (11.5-14.5); Segmented Neutrophils % 75.2 %; White Blood Count 6.9 K/mcL (4.3-11.1)
[2021-08-22 07:25] LABS: BUN/Creatinine Ratio 36 (6-26); Blood Urea Nitrogen 13 mg/dL (8-23); Calcium 6.8 mg/dL (8.6-10.3); Carbon Dioxide 25 mEq/L (23-29); Chloride 99 mEq/L (98-107); Glucose 78 mg/dL (70-105); Magnesium 1.2 mg/dL (1.6-2.6); Osmolality,Calculated 265 (280-300); Phosphorous 2.2 mg/dL (2.7-4.5); Potassium 3.1 mEq/L (3.5-5.1); Sodium 128 mEq/L (136-145); eGFR For African Americans > 60 (> 60); eGFR For Non-African Americans > 60 (> 60)
[2021-08-22] MEDS ORDERED: Potassium Phosphate 44 MEQ in 0.9 % Sodium Chloride 250 ML IVPB ONE (08:00)
[2021-08-22] MEDS: Magnesium Oxide 400 MG TABLET PO SCH ×3 (09:45→21:00)
[2021-08-22] MEDS: Aspirin 81 MG TAB.CHEW PO SCH (09:45)
[2021-08-22] MEDS: Cholecalciferol (D-3) 1,000 UNIT (25MCG) TABLET PO SCH (09:45)
[2021-08-22] MEDS: *HR* Digoxin 0.125 MG TABLET PO SCH (09:46)
[2021-08-22] MEDS: Apixaban 5 MG TABLET PO SCH ×2 (09:46→21:00)
[2021-08-22] MEDS: Gabapentin 300 MG CAPSULE PO SCH ×3 (09:46→21:00)
[2021-08-22] MEDS: Calcium Gluconate 1gm/50mL 1 GM/50 ML BAG IVPB SCH ×2 (09:47→12:35)
[2021-08-22] MEDS: Furosemide 20 MG/2 ML VIAL IVP SCH ×2 (09:52→17:23)
[2021-08-22] MEDS: Acetaminophen 325 MG TABLET PO PRN ×2 (11:52→21:01)
[2021-08-23] MEDS: 0.9 % Sodium Chloride 1,000 ML IVC SCH ×2 (05:55→15:24)
[2021-08-23 07:05] LABS: Basophils % 0.5 %; Eosinophils # 0.1 K/mcL (0.0-0.6); Eosinophils % 1.1 %; Hematocrit 34.2 % (37.5-50.1); Hemoglobin 11.6 g/dL (12.9-16.9); Lymphocytes % 13.2 %; Mean Corpuscular HGB Conc 33.9 g/dL (31.6-35.5); Mean Corpuscular Hemoglobin 35.2 pg (28.0-33.3); Mean Corpuscular Volume 103.6 fL (83.0-100.0); Mean Platelet Volume 8.5 fL (9.4-12.4); Monocytes # 0.8 K/mcL (0.0-1.3); Monocytes % 10.4 %; Neutrophils # 5.4 K/mcL (1.6-8.9); Platelet Count 143 K/mcL (140-400); Red Cell Distribution Width 13.5 % (11.5-14.5); Segmented Neutrophils % 73.8 %; White Blood Count 7.3 K/mcL (4.3-11.1)
[2021-08-23 07:31] LABS: Potassium 4.9 mEq/L (3.5-5.1)
[2021-08-23 07:32] LABS: BUN/Creatinine Ratio 28 (6-26); Blood Urea Nitrogen 18 mg/dL (8-23); Calcium 9.2 mg/dL (8.6-10.3); Carbon Dioxide 32 mEq/L (23-29); Chloride 91 mEq/L (98-107); Glucose 94 mg/dL (70-105); Osmolality,Calculated 264 (280-300); Phosphorous 3.8 mg/dL (2.7-4.5); Sodium 126 mEq/L (136-145); eGFR For African Americans > 60 (> 60); eGFR For Non-African Americans > 60 (> 60)
[2021-08-23] MEDS: Magnesium Oxide 400 MG TABLET PO SCH ×3 (10:48→20:32)
[2021-08-23] MEDS: Cholecalciferol (D-3) 1,000 UNIT (25MCG) TABLET PO SCH (10:48)
[2021-08-23] MEDS: Gabapentin 300 MG CAPSULE PO SCH ×3 (10:49→20:33)
[2021-08-23] MEDS: Furosemide 20 MG/2 ML VIAL IVP SCH ×3 (10:49→17:38)
[2021-08-23] MEDS: *HR* Digoxin 0.125 MG TABLET PO SCH (10:49)
[2021-08-23] MEDS: Apixaban 5 MG TABLET PO SCH ×2 (10:49→20:33)
[2021-08-23] MEDS: Aspirin 81 MG TAB.CHEW PO SCH (10:49)
[2021-08-23] MEDS ORDERED: Albuterol 2.5 MG/3 ML NEBULIZER IH PRN (11:02)
[2021-08-23] MEDS: Acetylcysteine 10% 2 ML INHSOL IH SCH ×2 (11:49→21:00)
[2021-08-23] MEDS: Acetaminophen 325 MG TABLET PO PRN (20:33)
[2021-08-24] MEDS: Acetylcysteine 10% 2 ML INHSOL IH SCH (03:57)
[2021-08-24] MEDS: 0.9 % Sodium Chloride 1,000 ML IVC SCH (05:26)
[2021-08-24 06:56] VITALS: PULSE 79
[2021-08-24 09:02] LABS: Basophils % 0.5 %; Eosinophils # 0.1 K/mcL (0.0-0.6); Eosinophils % 1.3 %; Hemoglobin 11.3 g/dL (12.9-16.9); Immature Granulocytes % 0.8 % (0-4); Lymphocytes % 13.5 %; Mean Corpuscular HGB Conc 33.2 g/dL (31.6-35.5); Mean Corpuscular Hemoglobin 35.4 pg (28.0-33.3); Mean Corpuscular Volume 106.6 fL (83.0-100.0); Mean Platelet Volume 8.6 fL (9.4-12.4); Monocytes # 0.7 K/mcL (0.0-1.3); Monocytes % 9.4 %; Neutrophils # 5.7 K/mcL (1.6-8.9); Platelet Count 144 K/mcL (140-400); Red Blood Count 3.19 M/mcL (4.19-5.50); Red Cell Distribution Width 13.8 % (11.5-14.5); Segmented Neutrophils % 74.5 %; White Blood Count 7.6 K/mcL (4.3-11.1)
[2021-08-24 09:22] LABS: BUN/Creatinine Ratio 39 (6-26); Blood Urea Nitrogen 25 mg/dL (8-23); Calcium 9.1 mg/dL (8.6-10.3); Carbon Dioxide 35 mEq/L (23-29); Chloride 93 mEq/L (98-107); Glucose 102 mg/dL (70-105); Magnesium 1.8 mg/dL (1.6-2.6); Osmolality,Calculated 281 (280-300); Phosphorous 3.5 mg/dL (2.7-4.5); Potassium 4.6 mEq/L (3.5-5.1); Sodium 133 mEq/L (136-145); eGFR For African Americans > 60 (> 60); eGFR For Non-African Americans > 60 (> 60)
[2021-08-24 10:57] VITALS: BP 127/55; TEMP 98.6; O2SAT 98
[2021-08-24] MEDS: Cholecalciferol (D-3) 1,000 UNIT (25MCG) TABLET PO SCH (11:16)
[2021-08-24] MEDS: Gabapentin 300 MG CAPSULE PO SCH (11:17)
[2021-08-24] MEDS: Apixaban 5 MG TABLET PO SCH (11:17)
[2021-08-24] MEDS: Aspirin 81 MG TAB.CHEW PO SCH (11:17)
[2021-08-24] MEDS: Magnesium Oxide 400 MG TABLET PO SCH (11:21)
[2021-08-24] MEDS: *HR* Digoxin 0.125 MG TABLET PO SCH (11:22)
[2021-08-25] MEDS ORDERED: Furosemide 20 MG TABLET PO SCH (09:00)
== END 2021-08-24 18:16 | disposition home health service (06) | DRG 640 ==
LOC: EMEROOARM 14:13 → 3NENU 14:13
PROVIDERS: ADMIT Student in an Organized Health Care Education/Training Program; ATTEND Student in an Organized Health Care Education/Training Program

== ENCOUNTER 2022-01-15 16:12 | Inpatient (IN) ==
[2022-01-15 17:17] LABS: Bilirubin,Urine Negative (Negative); Blood,Urine Negative (Negative); Clarity,Urine Clear (Clear); Color,Urine Light-Yellow (Yellow); Glucose,Urine (UA) Normal (Normal); Ketones,Urine Negative (Negative); Leukocyte Esterase,Urine Negative (Negative); Nitrite,Urine Negative (Negative); PH,Urine 6.5 pH Units (5.0-8.0); Protein,Urine Negative (Neg-Trace); Specific Gravity,Urine 1.013 (1.010-1.025); Urobilinogen,Urine Normal (Normal)
[2022-01-15 18:17] LABS: Basophils % 0.4 %; Eosinophils % 0.6 %; Hematocrit 40.3 % (37.5-50.1); Hemoglobin 13.1 g/dL (12.9-16.9); Immature Granulocytes % 0.6 % (0-4); Lymphocytes # 0.7 K/mcL (0.6-4.6); Lymphocytes % 13.6 %; Mean Corpuscular HGB Conc 32.5 g/dL (31.6-35.5); Mean Corpuscular Hemoglobin 35.9 pg (28.0-33.3); Mean Corpuscular Volume 110.4 fL (83.0-100.0); Mean Platelet Volume 10.1 fL (9.4-12.4); Monocytes # 0.4 K/mcL (0.0-1.3); Monocytes % 8.4 %; Neutrophils # 3.9 K/mcL (1.6-8.9); Platelet Count 115 K/mcL (140-400); Red Blood Count 3.65 M/mcL (4.19-5.50); Red Cell Distribution Width 13.2 % (11.5-14.5); Segmented Neutrophils % 76.4 %; White Blood Count 5.1 K/mcL (4.3-11.1)
[2022-01-15 18:46] LABS: Platelet Estimate Normal (Normal)
[2022-01-15 19:38] LABS: Alanine Aminotransferase 7 Units/L (7-52); Albumin/Globulin Ratio 1.6 (1.1-2.2); Alkaline Phosphatase 130 Units/L (34-104); Aspartate Amino Transferase 13 Units/L (13-39); BUN/Creatinine Ratio 24 (6-26); Bilirubin,Direct 0.4 mg/dL (0.0-0.2); Bilirubin,Total 1.4 mg/dL (0.3-1.0); Blood Urea Nitrogen 20 mg/dL (8-23); Calcium 9.6 mg/dL (8.6-10.3); Carbon Dioxide 34 mEq/L (23-29); Chloride 91 mEq/L (98-107); Globulin 2.5 g/dL (2.4-3.5); Glucose 87 mg/dL (70-105); Osmolality,Calculated 270 (280-300); Potassium 5.1 mEq/L (3.5-5.1); Sodium 129 mEq/L (136-145); Total Protein 6.5 g/dL (6.4-8.9); eGFR For African Americans > 60 (> 60); eGFR For Non-African Americans > 60 (> 60)
[2022-01-15] MEDS ORDERED: Bumetanide 1 MG/4 ML VIAL IVP ONE (19:40)
[2022-01-15] MEDS ORDERED: *HR* HYDROcodone/Acet 5/325 mg TABLET PO PRN (20:55)
[2022-01-15] MEDS ORDERED: Ondansetron 4 MG/2 ML VIAL IVP PRN (20:55)
[2022-01-15] MEDS ORDERED: Melatonin 3 MG TABLET PO PRN (20:55)
[2022-01-15] MEDS ORDERED: Acetaminophen 325 MG TABLET PO PRN (20:55)
[2022-01-15] MEDS ORDERED: *HR* OxyCODONE Immed Rel 5 MG TABLET PO PRN (20:55)
[2022-01-15] MEDS ORDERED: Naloxone 0.4 MG/ML INJ IVP PRN (20:55)
[2022-01-15] MEDS: Apixaban 5 MG TABLET PO SCH (22:51)
[2022-01-16 05:07] LABS: Basophils % 0.2 %; Eosinophils % 0.7 %; Hematocrit 37.5 % (37.5-50.1); Hemoglobin 12.1 g/dL (12.9-16.9); Immature Granulocytes % 0.7 % (0-4); Lymphocytes # 0.8 K/mcL (0.6-4.6); Lymphocytes % 17.3 %; Mean Corpuscular HGB Conc 32.3 g/dL (31.6-35.5); Mean Corpuscular Hemoglobin 35.6 pg (28.0-33.3); Mean Corpuscular Volume 110.3 fL (83.0-100.0); Mean Platelet Volume 9.1 fL (9.4-12.4); Monocytes # 0.4 K/mcL (0.0-1.3); Monocytes % 9.8 %; Neutrophils # 3.1 K/mcL (1.6-8.9); Platelet Count 105 K/mcL (140-400); Red Cell Distribution Width 13.2 % (11.5-14.5); Segmented Neutrophils % 71.3 %; White Blood Count 4.4 K/mcL (4.3-11.1)
[2022-01-16 05:15] LABS: INR 1.6
[2022-01-16 05:23] LABS: BUN/Creatinine Ratio 23 (6-26); Blood Urea Nitrogen 20 mg/dL (8-23); Carbon Dioxide 35 mEq/L (23-29); Chloride 92 mEq/L (98-107); Potassium 4.6 mEq/L (3.5-5.1); Sodium 131 mEq/L (136-145); eGFR For African Americans > 60 (> 60)
[2022-01-16 05:24] LABS: Calcium 9.6 mg/dL (8.6-10.3); Glucose 103 mg/dL (70-105); Magnesium 1.8 mg/dL (1.6-2.6); Osmolality,Calculated 275 (280-300); eGFR For Non-African Americans > 60 (> 60)
[2022-01-16] MEDS ORDERED: Perflutren Lipid Microsphere 1.3 ML in 0.9 % Sodium Chloride 8.7 ML IVP PRN (08:27)
[2022-01-16] MEDS: Apixaban 5 MG TABLET PO SCH ×2 (08:50→20:19)
[2022-01-16] MEDS: Ascorbic Acid 500 MG TABLET PO SCH (08:50)
[2022-01-16] MEDS: Cholecalciferol (D-3) 1,000 UNIT (25MCG) TABLET PO SCH (08:50)
[2022-01-16] MEDS: Magnesium Oxide 400 MG TABLET PO SCH ×3 (08:51→20:19)
[2022-01-16] MEDS: Aspirin 81 MG TAB.CHEW PO SCH (08:51)
[2022-01-16] MEDS: Gabapentin 300 MG CAPSULE PO SCH ×2 (08:51→20:19)
[2022-01-16] MEDS: *HR* Digoxin 0.125 MG TABLET PO SCH (08:51)
[2022-01-16] MEDS: Furosemide 40 MG/4 ML VIAL IVP SCH (08:51)
[2022-01-16 12:26] LABS: Digoxin 1.3 ng/mL (0.8-2.0)
[2022-01-17 02:08] LABS: Basophils % 0.2 %; Eosinophils % 0.5 %; Hematocrit 36.6 % (37.5-50.1); Hemoglobin 11.9 g/dL (12.9-16.9); Immature Granulocytes % 0.2 % (0-4); Lymphocytes # 0.9 K/mcL (0.6-4.6); Lymphocytes % 20.6 %; Mean Corpuscular HGB Conc 32.5 g/dL (31.6-35.5); Mean Corpuscular Hemoglobin 35.5 pg (28.0-33.3); Mean Corpuscular Volume 109.3 fL (83.0-100.0); Monocytes # 0.5 K/mcL (0.0-1.3); Monocytes % 11.1 %; Neutrophils # 2.9 K/mcL (1.6-8.9); Platelet Count 107 K/mcL (140-400); Red Blood Count 3.35 M/mcL (4.19-5.50); Red Cell Distribution Width 13.2 % (11.5-14.5); Segmented Neutrophils % 67.4 %; White Blood Count 4.3 K/mcL (4.3-11.1)
[2022-01-17 02:26] LABS: BUN/Creatinine Ratio 24 (6-26); Blood Urea Nitrogen 18 mg/dL (8-23); Calcium 9.6 mg/dL (8.6-10.3); Carbon Dioxide 39 mEq/L (23-29); Chloride 91 mEq/L (98-107); Glucose 89 mg/dL (70-105); Osmolality,Calculated 275 (280-300); Potassium 4.3 mEq/L (3.5-5.1); Sodium 132 mEq/L (136-145); eGFR For African Americans > 60 (> 60); eGFR For Non-African Americans > 60 (> 60)
[2022-01-17] MEDS: Cholecalciferol (D-3) 1,000 UNIT (25MCG) TABLET PO SCH (08:29)
[2022-01-17] MEDS: Ascorbic Acid 500 MG TABLET PO SCH (08:29)
[2022-01-17] MEDS: Apixaban 5 MG TABLET PO SCH ×2 (08:29→21:30)
[2022-01-17] MEDS: *HR* Digoxin 0.125 MG TABLET PO SCH (08:29)
[2022-01-17] MEDS: Furosemide 40 MG/4 ML VIAL IVP SCH (08:30)
[2022-01-17] MEDS: Gabapentin 300 MG CAPSULE PO SCH ×2 (08:30→21:30)
[2022-01-17] MEDS: Aspirin 81 MG TAB.CHEW PO SCH (08:30)
[2022-01-17] MEDS: Magnesium Oxide 400 MG TABLET PO SCH ×3 (08:35→21:31)
[2022-01-18 03:22] LABS: Basophils % 0.2 %; Mean Corpuscular Volume 110.2 fL (83.0-100.0)
[2022-01-18 03:24] LABS: Eosinophils % 0.9 %; Hematocrit 36.8 % (37.5-50.1); Hemoglobin 11.9 g/dL (12.9-16.9); Immature Granulocytes % 0.5 % (0-4); Lymphocytes # 0.8 K/mcL (0.6-4.6); Lymphocytes % 19.3 %; Mean Corpuscular HGB Conc 32.3 g/dL (31.6-35.5); Mean Corpuscular Hemoglobin 35.6 pg (28.0-33.3); Monocytes # 0.5 K/mcL (0.0-1.3); Monocytes % 10.7 %; Neutrophils # 2.9 K/mcL (1.6-8.9); Platelet Count 108 K/mcL (140-400); Red Blood Count 3.34 M/mcL (4.19-5.50); Red Cell Distribution Width 12.9 % (11.5-14.5); Segmented Neutrophils % 68.4 %; White Blood Count 4.3 K/mcL (4.3-11.1)
[2022-01-18 03:46] LABS: BUN/Creatinine Ratio 27 (6-26); Blood Urea Nitrogen 20 mg/dL (8-23); Calcium 9.6 mg/dL (8.6-10.3); Carbon Dioxide 38 mEq/L (23-29); Chloride 90 mEq/L (98-107); Glucose 95 mg/dL (70-105); Osmolality,Calculated 276 (280-300); Potassium 4.5 mEq/L (3.5-5.1); Sodium 132 mEq/L (136-145); eGFR For African Americans > 60 (> 60); eGFR For Non-African Americans > 60 (> 60)
[2022-01-18] MEDS: Cholecalciferol (D-3) 1,000 UNIT (25MCG) TABLET PO SCH (08:12)
[2022-01-18] MEDS: Furosemide 40 MG/4 ML VIAL IVP SCH (08:12)
[2022-01-18] MEDS: Ascorbic Acid 500 MG TABLET PO SCH (08:13)
[2022-01-18] MEDS: Gabapentin 300 MG CAPSULE PO SCH ×2 (08:13→21:53)
[2022-01-18] MEDS: Magnesium Oxide 400 MG TABLET PO SCH ×3 (08:13→21:52)
[2022-01-18] MEDS: Apixaban 5 MG TABLET PO SCH ×2 (08:13→21:51)
[2022-01-18] MEDS: *HR* Digoxin 0.125 MG TABLET PO SCH (08:13)
[2022-01-18] MEDS: Aspirin 81 MG TAB.CHEW PO SCH (08:13)
[2022-01-19 06:58] VITALS: BP 121/55; PULSE 72; TEMP 98; O2SAT 98
[2022-01-19] MEDS: Apixaban 5 MG TABLET PO SCH (09:02)
[2022-01-19] MEDS: Magnesium Oxide 400 MG TABLET PO SCH ×2 (09:03→14:42)
[2022-01-19] MEDS: *HR* Digoxin 0.125 MG TABLET PO SCH (09:04)
[2022-01-19] MEDS: Aspirin 81 MG TAB.CHEW PO SCH (09:04)
[2022-01-19] MEDS: Cholecalciferol (D-3) 1,000 UNIT (25MCG) TABLET PO SCH (09:04)
[2022-01-19] MEDS: Ascorbic Acid 500 MG TABLET PO SCH (09:04)
[2022-01-19] MEDS: Gabapentin 300 MG CAPSULE PO SCH (09:04)
== END 2022-01-19 16:30 | disposition home health service (06) | DRG 291 ==
LOC: 3BNU 16:12 → EMEROOARM 16:12 → SUATTDRO 21:02 → 3BNU 21:19
PROVIDERS: ADMIT Internal Medicine; ATTEND Internal Medicine